=== PATIENT | female | born 1940 | race Caucasian/White ===

== ENCOUNTER 2016-06-23 11:31 | Emergency (ER) | payer BC ==
--- NOTE | 2016-06-23 13:28 | Emergency Department Record ---
History of Present Illness - General Chief complaint: Dental Stated complaint: DENTAL PROBLEM/SWO[place]EN GLANDS Time Seen by Provider: 06/23/16 13:27 Source: Patient Mode of Arrival: Ambulatory Limitations: No limitations - History of Present Illness Initial comments: The patient is here due to having some dental pain and noticing a tender swollen lymph node on the R side of her neck. She denies any trouble swallowing , pain with swallowing, fever, voice changes,or trouble breathing. Onset/Timin -: Days(s) Location: Tooth # Severity scale (1-10): 2 Quality: Aching Consistency: Constant Improves with: None Worsens with: None Associated Symptoms: Toothache - Related Data Home Medications Medication Instructions Recorded Confirmed Last Taken Carvedilol 25 mg PO BID 12/04/13 06/23/16 03/30/16 Levothyroxine Sodium [Synthroid] 125 mcg PO DAILY 12/04/13 06/23/16 03/30/16 Oxybutynin Chloride [Ditropan] 5 mg PO BID PRN 07/04/14 06/23/16 03/30/16 Aspirin [Aspirin EC] 325 mg PO DAILY 11/07/15 06/23/16 03/30/16 Cholecalciferol (Vitamin D3) 1,000 unit PO DAILY 11/07/15 06/23/16 03/30/16 [Vitamin D3] Cranberry Conc/Ascorbic Acid 1 each PO DAILY 11/07/15 06/23/16 03/30/16 [Cranberry Concentrate Softgel] Cyanocobalamin (Vitamin B-12) 1,200 mcg PO DAILY 11/07/15 06/23/16 03/30/16 [Vitamin B-12] Loperamide HCl [Anti-Diarrhea] 2 mg PO ASDIR 11/07/15 06/23/16 03/30/16 Multivits,Ca,Minerals/Iron/FA 1 each PO DAILY 11/07/15 06/23/16 03/30/16 [Women's Daily Formula Caplet] Niacin 250 mg PO DAILY 11/07/15 06/23/16 03/30/16 Pantoprazole Sodium [Protonix] 20 mg PO DAILY 11/07/15 06/23/16 03/30/16 Pyridoxine HCl [Vitamin B-6] 100 mg PO DAILY 11/07/15 06/23/16 03/30/16 Previous Rx's Medication Instructions Recorded Acetaminophen [Tylenol 500Mg Tab] 500 mg PO Q6H PRN #0 tablet 11/10/15 Allopurinol [Zyloprim] 100 mg PO DAILY #30 tablet 11/10/15 Amoxicillin/Potassium Clav 1 tab PO BID #14 tab 06/23/16 [Augmentin 875-125 Tablet] Cefdinir [Omnicef] 300 mg PO BID #14 cap 06/23/16 Cefdinir [Omnicef] 300 mg PO BID #14 cap 06/23/16 Allergies Allergy/AdvReac Type Severity Reaction Status Date / Time morphine Allergy Severe ALTERED Verified 03/30/16 13:32 MENTAL STATUS gabapentin Allergy HYPERSENSIT Verified 06/23/16 13:19 IVITY clindamycin HCl AdvReac Intermediate NAUSEA AND Verified 03/30/16 13:32 [From CLEOCIN] VOMITING cyclobenzaprine HCl AdvReac Intermediate DIZZINESS Verified 03/30/16 13:32 [From FLEXERIL] Travel Screening - Travel/Exposure Within Last 30 Days Have you traveled within the last 30 days?: No Review of Systems Constitutional: Denies: Chills, Fever Eyes: Denies: Eye discharge ENT: Denies: Congestion Respiratory: Denies: Cough, Dyspnea Past Medical History - SOCIAL HISTORY Smoking Status: Former smoker Alcohol Use: None Drug Use: None - RESPIRATORY Hx Respiratory Disorders: No - CARDIOVASCULAR Hx Cardio Disorders: Yes Hx Abnormal EKG: Yes (Regularly irregular) Hx Cardiac Cath: Yes Hx Hypertension: Yes - NEURO Hx Neuro Disorders: Yes Hx Neuropathy: Yes - GI Hx GI Disorders: Yes Hx Abdominal Pain: (Gallstones) Hx Nausea/Vomiting: Yes Hx Obstructive Bowel: Yes ("waited through 3 episodes since i was here last time ") Comment:: Diarrhea from the bowel surgery. 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 negative: Tonsillar erythema, Tonsillar exudate - Neck Neck exam: Full ROM, Lymphadenopathy (There is a 3x3 cm very tender swollen R anterior neck lymph node. There is no warmth or overlying erythema.). negative : Normal inspection - Respiratory Respiratory exam: Normal lung sounds bilaterally. negative: Respiratory distress - Cardiovascular Cardiovascular Exam: Regular rate, Normal rhythm, Normal heart sounds - GI/Abdominal GI/Abdominal exam: Soft, Normal bowel sounds. negative: Tenderness Course Vital Signs 06/23/16 13:14 Temperature 97.8 F Pulse Rate 65 Respiratory 18 Rate Blood Pressure 188/77 Pulse Ox 99 - Reevaluation(s) Reevaluation #1: I explained to the patient we will be treating her for cervical adenitis and she is to see her PCP next week for recheck. 06/23/16 13:57 Reevaluation #2: I did cancel all 3 scripts that were sent to the pharmacy. I then did call in Cefdinir 300 mg daily for 10 days to the pharmacy. 06/23/16 15:35 Disposition Disposition: Discharge Clinical Impression: Acute cervical adenitis Disposition: Home, Self-Care Condition: (1) Good Instructions: Adenitis (ED) Additional Instructions: Please take the Augmentin and use Tylenol for pain. Please use warm compresses to the R neck area. Please return to the ER for any problems or worsening pain, swelling, or any fever. Prescriptions: Amoxicillin/Potassium Clav [Augmentin 875-125 Tablet] 1 tab PO BID #14 tab Cefdinir [Omnicef] 300 mg PO BID #14 cap Cefdinir [Omnicef] 300 mg PO BID #14 cap Forms: Patient Portal Access Time of Disposition: 13:59
== END 2016-06-23 14:07 | disposition home or self-care (01) ==
LOC: ER 11:31
DX: L04.0 Acute lymphadenitis of face, head and neck (principal)
CPT/HCPCS: 99282

== ENCOUNTER 2017-03-21 11:08 | Inpatient (IN) | payer BC ==
[2017-03-21] MEDS ORDERED: ONDANSETRON HCL IV 4 MG/2 ML VIAL IV ONE (11:15)
[2017-03-21] MEDS ORDERED: 0.9 % SODIUM CHLORIDE 1,000 ML BAG IV ONE (11:15)
[2017-03-21] MEDS ORDERED: ACETAMINOPHEN 1,000 MG/100 ML BTL IVPB ONE (11:29)
--- NOTE | 2017-03-21 11:29 | Emergency Department Record ---
History of Present Illness - General Chief complaint: Nausea, Vomiting, Diarrhea Stated complaint: NAUSEA/VOMITING Time Seen by Provider: 03/21/17 11:15 Source: Patient Mode of Arrival: Ambulatory Limitations: No limitations - History of Present Illness Initial comments: 76 yo female presents with nausea, vomiting and diarrhea. The symptoms started on Saturday after eating mussels. With in two hours she developed nausea and vomiting. The vomiting continued until Saturday. She has not vomited since Saturday but she has had a persistently upset stomach. She has chronic diarrhea that is increased in frequency. Today she developed a right sided abdominal pain around 9am. This pain has persisted for the last 2 hours. She has had multiple abdominal surgeries in the past in cluding large partial bowel resection, gall bladder. She has a history of breast, colon, and gastric cancer. PCP John Paul Scherer MD complaint: Diarrhea, Nausea, Vomiting Onset/Timin -: Days(s) Description of Vomiting: Other Associated Abdominal Pain: Yes Location: RLQ Radiation: None Severity: Moderate Quality: Aching Consistency: Constant Improves with: None Worsens with: Eating Associated Symptoms: Loss of appetite, Nausea/vomiting, Weakness - Related Data Home Medications Medication Instructions Recorded Confirmed Last Taken Palbociclib [Ibrance] 75 mg PO DAILY 03/21/17 03/21/17 03/21/17 Previous Rx's Medication Instructions Recorded Acetaminophen [Tylenol 500Mg Tab] 500 mg PO Q6H PRN #0 tablet 11/10/15 Allopurinol [Zyloprim] 100 mg PO DAILY #30 tablet 11/10/15 Allergies Allergy/AdvReac Type Severity Reaction Status Date / Time morphine Allergy Severe ALTERED Verified 03/30/16 13:32 MENTAL STATUS gabapentin Allergy HYPERSENSIT Verified 06/23/16 13:19 IVITY clindamycin HCl AdvReac Intermediate NAUSEA AND Verified 03/30/16 13:32 [From CLEOCIN] VOMITING cyclobenzaprine HCl AdvReac Intermediate DIZZINESS Verified 03/30/16 13:32 [From FLEXERIL] Travel Screening - Travel/Exposure Within Last 30 Days Have you traveled within the last 30 days?: No - Travel/Exposure Within Last Year Have you traveled outside the [place] in the last year?: No - Additonal Travel Details Have you been exposed to anyone with a communicable illness?: No - Travel Symptoms Symptom Screening: None Review of Systems Constitutional: Reports: Malaise, Weakness. Denies: Chills, Fever Eyes: Denies: Eye discharge, Eye pain ENT: Denies: Congestion, Throat pain Respiratory: Denies: Cough, Dyspnea, Hemoptysis, Wheezes Cardiovascular: Denies: Chest pain, Syncope Endocrine: Reports: Fatigue Gastrointestinal: Reports: As per HPI, Abdominal pain, Diarrhea, Nausea, Vomiting Genitourinary: Denies: Dysuria, Urgency Musculoskeletal: Denies: Arthralgia, Back pain, Joint swelling, Myalgia Skin: Denies: Bruising, Change in color, Rash Neurological: Denies: Headache, Numbness, Weakness Psychiatric: Denies: Anxiety Hematological/Lymphatic: Denies: Anemia, Blood Clots, Easy bleeding, Easy bruising, Swollen glands Past Medical History - SOCIAL HISTORY Smoking Status: Former smoker Alcohol Use: Rare Drug Use: None - RESPIRATORY Hx Respiratory Disorders: No - CARDIOVASCULAR Hx Cardio Disorders: Yes Hx Abnormal EKG: Yes (Regularly irregular) Hx Cardiac Cath: Yes Hx Hypertension: Yes - NEURO Hx Neuro Disorders: Yes Hx Neuropathy: Yes - GI Hx GI Disorders: Yes Hx Abdominal Pain: (Gallstones) Hx Nausea/Vomiting: Yes Hx Obstructive Bowel: Yes ("waited through 3 episodes since i was here last time ") Comment:: Diarrhea from the bowel surgery. 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 negative: Conjunctival injection, Periorbital swelling - ENT ENT exam: Normal exam, Mucous membranes moist Ear exam: Normal external inspection Nasal Exam: Normal inspection Mouth exam: Normal external inspection - Neck Neck exam: Normal inspection, Full ROM - Respiratory Respiratory exam: Normal lung sounds bilaterally. negative: Respiratory distress, Rhonchi, Stridor, Wheezes - Cardiovascular Cardiovascular Exam: Regular rate, Normal rhythm, Normal heart sounds - GI/Abdominal GI/Abdominal exam: Soft, Tenderness (Tender right sided abdomen at the level of umbilicus). negative: Guarding, Rebound - Rectal Rectal exam: Deferred - exam: Deferred - Extremities Extremities exam: Normal inspection, Full ROM, Normal capillary refill. negative: Tenderness - Back Back exam: Reports: Normal inspection, Full ROM. Denies: Muscle spasm, Rash noted, Tenderness - Neurological Neurological exam: Alert, Normal gait, Oriented X3, Reflexes normal - Psychiatric Psychiatric exam: Normal affect, Normal mood - Skin Skin exam: Dry, Intact, Normal color, Warm Course Vital Signs 03/21/17 11:09 Temperature 98.1 F Pulse Rate 54 L Respiratory 18 Rate Blood Pressure 119/88 Pulse Ox 98 - Reevaluation(s) Reevaluation #1: 03/21/17 11:36 EMR reviewed from prior admission in 201503/21/17 12:11 The labs were reviewed On the CBC she has a chronic anemia The CMP results demonstrated a K of 3.3, a HCO3 of 12 with AG of 22, her BUN is 45 with a CR of 3.7 (baseline CR is 1.8 - 2.6) with a GFR of 13 (baseline of 20- 29) 03/21/17 13:49 CT reivewed. Right renal collecting system is suspicious for infection. No stones. No obstruction. The US is consistent with UTI Stool studies are negative to this point 03/21/17 14:09 I Discussed the case with Dr Rosado. He will admit for IVF, recheck renal function, IV antibiotics for UTI. Medical Decision Making - Lab Data Result diagrams: 03/21/17 11:15 03/21/17 11:15 Disposition Disposition: Admit Clinical Impression: Dehydration, Acute renal insufficiency, Urinary tract infection Diarrhea Qualifiers: Diarrhea type: unspecified type Qualified Code(s): R19.7 - Diarrhea, unspecified Disposition: Still a Patient at [facility] Decision to Admit: Admit from ER Decision to Admit Date: 03/21/17 Decision to Admit Time: 14:07 Condition: (1) Good Time of Disposition: 14:08 Quality - Quality Measures Quality Measures: N/A - Blood Pressure Screening Does Patient Have Any of the Following: Active Dx of HTN Blood Pressure Classification: Pre-Hypertensive BP Reading Systolic Measurement: 130 Diastolic Measurement: 51 Screening for High Blood Pressure: Patient Exclusion, Hx of HTN [[id number]] Pre-Hypertensive Follow-up Interventions: Referral to alternative/primary care provider.
[2017-03-21 11:32] LABS: BASO % 0.8 % (0-6); GRAN % 71.4 % (47-80); HEMATOCRIT 30.9 % (35.0-47.0); HEMOGLOBIN 10.1 gm/dl (11.6-16.0); LYMPH % 23.7 % (16-45); MEAN CELL VOLUME 98.1 fl (81-97); MEAN CORPUSCULAR HGB CONC 32.7 g/dl (32-36); MEAN PLATELET VOLUME 9.9 fl (7.4-10.4); MONO % 3.1 % (0-9); PLATELET COUNT 199 K/uL (130-400); RED BLOOD COUNT 3.15 M/uL (3.80-5.40); RED CELL DISTRIBUTION WIDTH 16.5 % (11.5-14.5); WHITE BLOOD COUNT W/O DIFF 3.9 K/uL (4.2-12.2)
[2017-03-21 12:01] LABS: ALB/GLOB RATIO 0.9 (1.1-1.8); ALBUMIN 3.9 g/dL (4.0-5.0); BILIRUBIN,TOTAL 0.3 mg/dL (0.2-1.0); CREATININE 3.7 mg/dL (0.5-0.9); TOTAL PROTEIN 8.3 g/dL (6.6-8.7)
[2017-03-21] MEDS ORDERED: 0.9 % SODIUM CHLORIDE 1000ML 1,000 ML IV ONE (12:13)
[2017-03-21] MEDS: POTASSIUM CHL 20MEQ IN 1L NS 20 MEQ/1,000 ML BAG IV ONE ×2 (12:50→14:17)
[2017-03-21 13:08] LABS: URINE APPEARANCE CLOUDY; URINE BILIRUBIN NEGATIVE (NEGATIVE); URINE BLOOD SMALL (NEGATIVE); URINE COLOR YELLOW; URINE GLUCOSE (UA) NEGATIVE (NEGATIVE); URINE KETONE NEGATIVE (NEGATIVE); URINE LEUKOCYTE ESTERASE LARGE (NEGATIVE); URINE NITRITE NEGATIVE (NEGATIVE); URINE UROBILINOGEN 0.2 E.U./dL (0.20 - 1.00)
[2017-03-21 13:25] LABS: URINE WBC >50 (0-2/hpf)
[2017-03-21 13:26] LABS: URINE BACTERIA 4+; URINE MUCUS MODERATE
[2017-03-21 13:41] LABS: CRYPTOSPORIDIUM PARVUM ANTIGEN NOT DETECTED (NOT DETECT); GIARDIA LAMBLIA ANTIGEN NOT DETECTED (NOT DETECT); ROTOVIRUS NOT DETECTED (NOT DETECT)
[2017-03-21] MEDS ORDERED: CEFTRIAXONE SODIUM 1 GM in 0.9 % SODIUM CHLORIDE 100ML 100 ML IVPB ONE (13:49)
[2017-03-21 14:21] LABS: MOLECULAR C DIFF TOXIN SCREEN NOT DETECTED (NOT DETECT)
[2017-03-21] MEDS ORDERED: HYDROMORPHONE HCL 1MG/ML **SYRINGE IVP ONE ×2 (14:33→17:04)
[2017-03-21] MEDS ORDERED: POTASSIUM CHLORIDE/D5-0.9%NACL 20 MEQ/1,000 ML BAG IV ONE (15:06)
[2017-03-21] MEDS ORDERED: ONDANSETRON HCL IV 4 MG/2 ML VIAL IVP PRN (15:06)
[2017-03-21] MEDS ORDERED: PNEUM 13-VAL/PF 0.5 ML IM ONE (15:21)
[2017-03-21] MEDS: LOPERAMIDE 2 MG CAPSULE PO PRN ×2 (16:42→21:04)
[2017-03-21] MEDS: HYDROCORTISONE 1% CREAM 28.35 GM TUBE TOP SCH ×2 (16:42→21:08)
[2017-03-21] MEDS: LOPERAMIDE 2 MG CAPSULE PO SCH ×3 (16:49→21:19)
[2017-03-21] MEDS ORDERED: HYDROMORPHONE HCL 1MG/ML **SYRINGE IVP PRN (17:34)
[2017-03-22] MEDS: PANTOPRAZOLE SODIUM 40 MG TABLET PO SCH (06:04)
[2017-03-22] MEDS: LEVOTHYROXINE SODIUM 125 MCG TABLET PO SCH (06:04)
[2017-03-22 08:44] LABS: CREATININE 3.4 mg/dL (0.5-0.9)
[2017-03-22] MEDS ORDERED: POTASSIUM CHL 20MEQ IN 1L NS 20 MEQ/1,000 ML BAG IV ONE (09:36)
--- NOTE | 2017-03-22 10:11 | CT SCAN REPORT ---
EXAM: CT OF THE ABDOMEN AND PELVIS WITHOUT CONTRAST HISTORY: RIGHT LOWER QUADRANT PAIN. TECHNIQUE: Sequential axial images were obtained from the diaphragms through the ischiorectal fossa without intravenous or oral contrast administration. Sagittal and coronal reformatted images were performed. FINDINGS: The visualized lung bases appear normal. The heart and pericardium appear normal. The nonopacified liver appears normal. The pancreas and spleen appear normal. The adrenal glands appear normal. No CT findings suggestive of obstructive uropathy. There is mild hyperdensity of the right renal collecting system. This may represent a superimposed infection. There is postop surgical change in the abdomen. There are small mesenteric lymph nodes. No definitive obstruction is appreciated. There is a small amount of free fluid. There is atheromatous change of the abdominal vasculature. IMPRESSION: MILD HYPERDENSITY OF THE RIGHT RENAL COLLECTING SYSTEM. A SUPERIMPOSED INFECTION CANNOT BE ENTIRELY EXCLUDED. SMALL AMOUNT OF FREE FLUID IN THE PELVIS. EXTENSIVE POSTOP SURGICAL CHANGE IN THE ABDOMEN. SMALL MESENTERIC LYMPH NODES. NO DEFINITIVE OBSTRUCTION. THE GALLBLADDER HAS BEEN SURGICALLY REMOVED. JOB NUMBER: [id number] [facility]
[2017-03-22] MEDS: ASPIRIN 325 MG TAB ENTERIC-COATED PO SCH (10:24)
[2017-03-22] MEDS: LOPERAMIDE 2 MG CAPSULE PO SCH ×4 (10:25→21:38)
[2017-03-22] MEDS: PALBOCICLIB 75 MG PO SCH (10:27)
[2017-03-22] MEDS: HYDROCORTISONE 1% CREAM 28.35 GM TUBE TOP SCH (10:30)
[2017-03-22] MEDS ORDERED: POTASSIUM CHLORIDE 20 MEQ TABLET PO ONE (14:01)
[2017-03-22] MEDS ORDERED: CEFTRIAXONE SODIUM 1 GM in 0.9 % SODIUM CHLORIDE 100ML 100 ML IVPB SCH ×3 (14:15→22:00)
[2017-03-22] MEDS ORDERED: HYDROCODONE/APAP 5/325MG TABLET PO PRN (14:34)
[2017-03-22] MEDS ORDERED: POTASSIUM CHL 20MEQ IN 1L NS 20 MEQ/1,000 ML BAG IV SCH (20:00)
[2017-03-22] MEDS ORDERED: ACETAMINOPHEN 500 MG TABLET PO PRN (21:19)
[2017-03-22] MEDS: CEFTRIAXONE SODIUM 1 GM in 0.9 % SODIUM CHLORIDE 100ML 100 ML IVPB SCH (21:38)
[2017-03-23] MEDS: HYDROCORTISONE 1% CREAM 28.35 GM TUBE TOP SCH ×3 (00:28→22:37)
[2017-03-23] MEDS ORDERED: POTASSIUM CHL 20MEQ IN 1L NS 20 MEQ/1,000 ML BAG IV PRN (01:16)
[2017-03-23] MEDS: LEVOTHYROXINE SODIUM 125 MCG TABLET PO SCH (06:38)
[2017-03-23] MEDS: PANTOPRAZOLE SODIUM 40 MG TABLET PO SCH (06:38)
[2017-03-23 07:19] LABS: CREATININE 3.6 mg/dL (0.5-0.9)
[2017-03-23] MEDS: ASPIRIN 325 MG TAB ENTERIC-COATED PO SCH (09:24)
[2017-03-23] MEDS: LOPERAMIDE 2 MG CAPSULE PO SCH ×3 (09:25→21:53)
[2017-03-23] MEDS: PALBOCICLIB 75 MG PO SCH (09:26)
[2017-03-23] MEDS: CEFTRIAXONE SODIUM 1 GM in 0.9 % SODIUM CHLORIDE 100ML 100 ML IVPB SCH ×2 (09:26→21:51)
[2017-03-23 09:31] LABS: ALBUMIN 2.9 g/dL (4.0-5.0); ALKALINE PHOSPHATASE 147 U/L (35-104); ALT/SGPT 7 U/L (<33); AST/SGOT 15 U/L (10.0-35.0); BILIRUBIN,DIRECT 0.2 mg/dL (0-0.3); BILIRUBIN,TOTAL < 0.20 mg/dL (0.2-1.0); TOTAL PROTEIN 6.2 g/dL (6.6-8.7)
--- NOTE | 2017-03-23 13:56 | Physician Progress Note ---
Subjective - Date Date of Physician Progress Note: 03/23/17 - Subjective Subjective Comment: 03/23/17- Patient is doing well today. Sitting up in bed with family at bedside. She says overall she is feeling much better than when she came in to the ED. She feels like her diarrhea is starting to slow down and has not been as frequent as it had when she came in. She denies nausea, vomiting or abdominal pain. She has been up and ambulating to the bathroom without issue. She denies any muscle cramps/spasms, chest pain, lower extremity swelling or confusion. She says she feels a little more fatigued than usual but otherwise, feels like she is on the mend. Objective - Vital Signs Vital Signs: Vital Signs - Last 24 Hrs Temp Pulse Resp BP Pulse Ox 03/23/17 09:00 70 18 03/23/17 07:00 97.9 F 70 18 130/62 93 L 03/22/17 21:00 18 03/22/17 20:28 97.8 F 76 18 134/53 95 03/22/17 15:00 97.7 F 75 18 123/47 95 - General General Appearance: Alert, Oriented x3, Cooperative, No acute distress Limitations: No limitations - Head Head exam: Atraumatic, Normocephalic, Normal inspection - Eye Eye exam: Normal appearance. negative: Conjunctival injection, Periorbital swelling - ENT ENT exam: Normal exam, Mucous membranes moist Ear exam: Normal external inspection Nasal Exam: Normal inspection Mouth exam: Normal external inspection - Neck Neck exam: Normal inspection, Full ROM - Respiratory Respiratory exam: Normal lung sounds bilaterally. negative: Respiratory distress, Rhonchi, Stridor, Wheezes - Cardiovascular Cardiovascular Exam: Regular rate, Normal rhythm, Normal heart sounds - GI/Abdominal GI/Abdominal exam: Soft, Normal bowel sounds. negative: Guarding, Rebound, Tenderness - Rectal Rectal exam: Deferred - exam: Deferred - Extremities Extremities exam: Normal inspection, Full ROM, Normal capillary refill. negative: Tenderness - Back Back exam: Reports: Normal inspection, Full ROM. Denies: Muscle spasm, Rash noted, Tenderness - Neurological Neurological exam: Alert, Normal gait, Oriented X3, Reflexes normal - Psychiatric Psychiatric exam: Normal affect, Normal mood - Skin Skin exam: Dry, Intact, Normal color, Warm Assessment and Plan - Assessment and Plan (1) [id number] kidney injury Current Visit: No Status: Acute Qualifiers: Acute renal failure type: unspecified Chronic kidney disease stage: stage 4 (severe) Qualified Code(s): N17.9 - Acute kidney failure, unspecified; N18.4 - Chronic kidney disease, stage 4 (severe); N18.4 - Chronic kidney disease , stage 4 (severe); N18.4 - Chronic kidney disease, stage 4 (severe); N18.4 - Chronic kidney disease, stage 4 (severe) Base Code: N17.9 - ACUTE KIDNEY FAILURE, UNSPECIFIED; N18.9 - CHRONIC KIDNEY DISEASE, UNSPECIFIED Comment: 03/23/17- Stable. most likely cause is volume depletion from severe diarrhea. significant electrolyte abnormalities. -BUN 43 and Cr of 3.6 eGFR of 13 unchanged from yesterday. Baseline eGFR is 20 -sodium 143 and potassium improved from 3.0 to 3.8 with IV replacement -Anion gap is down from 20 to 17, however chloride 117 and bicarb of 9. Lactic acid was wnl. arterial pH was not obtained -ionized calcium is low at 0.89 but phosphorus is wnl at 3.2. Patient is not symptomatic of hypocalcemia. -will transition to NS at 100cc/hr from current fluids to avoid hyperkalemia. clinically doing well without signs of fluid overload or acidemia. AG is trending downward. hopefully, bicarb will begin to trend upwards now that diarrhea has improved. Will repeat labs q12H (2) Urinary tract infection Current Visit: Yes Status: Acute Qualifiers: Urinary tract infection type: acute pyelonephritis Qualified Code(s): N10 - Acute pyelonephritis Base Code: N39.0 - URINARY TRACT INFECTION, SITE NOT SPECIFIED Comment: - CT abdomen showed possible infection of the right kidney with UA c/w infection. -continue rocephin 1gm IV q12H (3) Diarrhea Current Visit: Yes Status: Acute Qualifiers: Diarrhea type: unspecified type Qualified Code(s): R19.7 - Diarrhea, unspecified Base Code: R19.7 - DIARRHEA, UNSPECIFIED Comment: 03/23/17- Improving. stool studies negative. acute on chronic diarrhea due to partial colectomy. -continue immodium 2mg po tid (4) DNR (do not resuscitate) Current Visit: No Status: Acute Base Code: Z66 - DO NOT RESUSCITATE Comment: 03/23/17- patient is DNR Results - Labs Result Diagrams: 03/21/17 11:15 03/23/17 05:30 Labs Last 24 Hours: Laboratory Results - last 24 hr 03/22/17 03/23/17 03/23/17 16:20 05:30 06:00 Sodium 143 Potassium 3.8 Chloride 117 H Carbon Dioxide 9.0 L Anion Gap 17.0 H BUN 43 H Creatinine 3.6 H Estimated GFR 13 Random Glucose 109 Calcium 5.3 L* Ionized Calcium 0.89 L Phosphorus Total Bilirubin < 0.20 L Direct Bilirubin 0.2 AST 15 ALT 7 Alkaline Phosphatase 147 H Total Protein 6.2 L Albumin 2.9 L 03/23/17 06:00 Sodium Potassium Chloride Carbon Dioxide Anion Gap BUN Creatinine Estimated GFR Random Glucose Calcium Ionized Calcium Phosphorus 3.2 Total Bilirubin Direct Bilirubin AST ALT Alkaline Phosphatase Total Protein Albumin DVT/PE Assessment - Risk for VTE Risk for VTE: Yes Risk Level: High Risk Assessment Date: 03/23/17 Risk Assessment Time: 14:12 VTE Orders Placed or Will Be Placed: No VTE Reason for No Prophylaxis: Contraindicated - Active Medicaitons Current Medications: Current Medications Acetaminophen (Tylenol 500mg Tab) 1,000 mg PO Q6H PRN PRN Reason: pain Last Admin: 03/22/17 21:38 Dose: 1,000 mg Hydrocodone Bitart/Acetaminophen ([place] 5mg/325mg) 1 each PO Q6H PRN PRN Reason: Analgesia Aspirin (Ecotrin (Ec)) 325 mg PO DAILY [facility] Last Admin: 03/23/17 09:24 Dose: 325 mg Hydrocortisone (Hydrocortisone) 1 gm TOP BID [facility] Last Admin: 03/23/17 09:25 Dose: 1 gm Hydromorphone HCl (Dilaudid) 1 mg IVP Q4H PRN PRN Reason: Abdominal Pain Last Admin: 03/21/17 21:03 Dose: 1 mg Ceftriaxone Sodium 1 gm/ (Sodium Chloride) 100 mls @ 100 mls/hr IVPB Q12HR YANI Stop: 03/27/17 22:01 Last Infusion: 03/23/17 10:47 Dose: Infused Potassium Chloride/Sodium Chloride ( Potassium Chl 20meq/) 20 meq in 1,000 mls @ 100 mls/hr IV Q10H PRN PRN Reason: LARGE VOLUME IV Last Admin: 03/23/17 01:30 Dose: 100 mls/hr Levothyroxine Sodium (Synthroid) 125 mcg PO DAILYTHY [facility] Last Admin: 03/23/17 06:38 Dose: 125 mcg Loperamide HCl (Immodium) 2 mg PO TID [facility] Last Admin: 03/23/17 09:25 Dose: 2 mg Loperamide HCl (Immodium) 2 mg PO DAILY PRN PRN Reason: DIARRHEA Last Admin: 03/21/17 21:04 Dose: 2 mg Non-Formulary Medication (Palbociclib [Ibrance]) 75 mg PO DAILY [facility] Last Admin: 03/23/17 09:26 Dose: 75 mg Ondansetron HCl (Zofran) 4 mg IVP Q4H PRN PRN Reason: NAUSEA Pantoprazole Sodium (Protonix) 40 mg PO DAILYAC [facility] Last Admin: 03/23/17 06:38 Dose: 40 mg AMI Plan - Labs Result Diagrams: 03/21/17 11:15 03/23/17 05:30
[2017-03-23] MEDS: CALCIUM CARBONATE 500 MG TAB.CHEW PO SCH ×2 (15:03→22:36)
[2017-03-23] MEDS: MAGNESIUM OXIDE 400 MG TABLET PO SCH ×2 (15:03→21:53)
[2017-03-23] MEDS: 0.9 % SODIUM CHLORIDE 1000ML 1,000 ML IV PRN (15:05)
[2017-03-23] MEDS ORDERED: MAGNESIUM SULFATE 16 MEQ in 0.9 % SODIUM CHLORIDE 100ML 100 ML IV ONE (18:45)
[2017-03-23 22:12] LABS: ALB/GLOB RATIO 0.8 (1.1-1.8); ALBUMIN 2.7 g/dL (4.0-5.0); BILIRUBIN,TOTAL 0.2 mg/dL (0.2-1.0); CREATININE 3.4 mg/dL (0.5-0.9); TOTAL PROTEIN 6.2 g/dL (6.6-8.7)
[2017-03-24] MEDS: 0.9 % SODIUM CHLORIDE 1000ML 1,000 ML IV PRN (03:36)
[2017-03-24] MEDS: PANTOPRAZOLE SODIUM 40 MG TABLET PO SCH (06:14)
[2017-03-24] MEDS: LEVOTHYROXINE SODIUM 125 MCG TABLET PO SCH (06:14)
[2017-03-24 07:11] LABS: CREATININE 3.3 mg/dL (0.5-0.9)
--- NOTE | 2017-03-24 08:25 | Discharge Note ---
VTE H&P Assessment - Risk for VTE Risk for VTE: Yes Risk Level: High Risk Assessment Date: 03/23/17 Risk Assessment Time: 14:12 VTE Orders Placed or Will Be Placed: No VTE Reason for No Prophylaxis: Contraindicated Discharge Medications - Discharge Medications Prescriptions: Calcitriol 0.25 mcg PO DAILY #30 capsule Cephalexin [Keflex] 250 mg PO QID #20 Magnesium Oxide [Mag Ox] 400 mg PO BID #60 tab Potassium Chloride [Klor-Con] 20 meq PO DAILY #30 Home Medications: Ambulatory Orders Levothyroxine Sodium [Synthroid] 125 mcg PO DAILY 12/04/13 [Last Taken 03/21/17] Aspirin [Aspirin EC] 325 mg PO DAILY 11/07/15 [Last Taken 03/30/16] Pantoprazole Sodium [Protonix] 20 mg PO DAILY 11/07/15 [Last Taken 03/21/17] Acetaminophen [Tylenol 500Mg Tab] 500 mg PO Q6H PRN #0 tablet 11/10/15 [Last Taken 03/30/16] Allopurinol [Zyloprim] 100 mg PO DAILY #30 tablet 11/10/15 [Last Taken 03/21/17] Palbociclib [Ibrance] 75 mg PO DAILY 03/21/17 [Last Taken 03/21/17] Calcitriol 0.25 mcg PO DAILY #30 capsule 03/24/17 [Last Taken Unknown] Cephalexin [Keflex] 250 mg PO QID #20 03/24/17 [Last Taken Unknown] Loperamide HCl [Anti-Diarrhea] 2 mg PO ASDIR #0 03/24/17 [Last Taken 03/21/17] Magnesium Oxide [Mag Ox] 400 mg PO BID #60 tab 03/24/17 [Last Taken Unknown] Potassium Chloride [Klor-Con] 20 meq PO DAILY #30 03/24/17 [Last Taken Unknown] Discharge Note - Date Date of Discharge Note: 03/24/17 Condition: (1) Good Additional Instructions: follow up with Dr Coker on Mar 27 labs for hemoglobin/hematocrit, Magnisium level, BNP new meds keflex 250 mg four times a day for 5more days KCL 20 meq one a day mag ox 400 mg twice a day calcium/vit D 600mg/vit d 400 units calcitriol 0.25 once a day continue home meds Referrals: Salvador Coker M.D., F.A.C.P. [Primary Care Provider] - Forms: Patient Portal Access
[2017-03-24] MEDS: HYDROCORTISONE 1% CREAM 28.35 GM TUBE TOP SCH (09:22)
[2017-03-24] MEDS: LOPERAMIDE 2 MG CAPSULE PO SCH (09:23)
[2017-03-24] MEDS: PALBOCICLIB 75 MG PO SCH (09:24)
[2017-03-24] MEDS: ASPIRIN 325 MG TAB ENTERIC-COATED PO SCH (09:25)
[2017-03-24] MEDS ORDERED: HEPARIN SODIUM FLUSH 100 UNITS/ML SYR 5ML IV ONE (09:41)
[2017-03-24] MEDS ORDERED: 0.9 % SODIUM CHLORIDE 10ML SYR IVP ONE (09:41)
[2017-03-24] MEDS ORDERED: MAGNESIUM OXIDE 400 MG TABLET PO SCH (10:00)
[2017-03-24] MEDS ORDERED: CEPHALEXIN 250 MG CAPSULE PO SCH (10:00)
[2017-03-24] MEDS ORDERED: POTASSIUM CHLORIDE 20 MEQ TABLET PO SCH (10:00)
--- NOTE | 2017-03-24 13:48 | Discharge Summary ---
DATE OF DISCHARGE: 03/24/2017. DISCHARGE DIAGNOSIS: 1. ACUTE PYELONEPHRITIS. 2. ABDOMINAL PAIN, RESOLVED. 3. URINARY TRACT INFECTION, RESOLVING. URINE CULTURE SHOWED A MIXED ELIZABETH. HOWEVER, THE CT SCAN SHOWED SIGNS OF PYELONEPHRITIS. 4. A HISTORY OF STOMACH CANCER. 5. CHRONIC DIARRHEA, ABOUT THREE TO FOUR STOOLS A DAY. USING IMODIUM THREE TIMES A DAY. 6. HYPOCALCEMIA, BEING PLACED ON OUTPATIENT ORAL POTASSIUM 20 MEQ PER DAY. 7. HYPOMAGNESEMIA, BEING PLACED ON MAGNESIUM OXIDE 400 MG B.I.D. 8. HYPOCALCEMIA, BEING PLACED ON CALCIUM 600 MG WITH 400 IU OF VITAMIN D TWICE A DAY. ALSO CALCITRIOL IS BEING STARTED 0.25 MG ONCE A DAY. 9. CHRONIC RENAL FAILURE. 10. HYPOALBUMINEMIA. ATTENDING PHYSICIAN: Randy Rosado D.O. REASON FOR HOSPITALIZATION: Abdominal pain, diarrhea, and vomiting. HISTORY OF PRESENT ILLNESS: This 76-year-old female presented to the emergency department with abdominal pain which started approximately two days prior to admission. She has a history of stomach cancer. She was dehydrated when she came into the emergency department. She was evaluated by Dr. Bae and was admitted to the hospital for abdominal pain, dehydration, acute on chronic renal failure, and electrolyte abnormalities. SIGNIFICANT FINDINGS FROM EXAMINATION: CT of the abdomen and pelvis without contrast showed mild hyperdensity of the right renal collecting system. Superimposed infection cannot be entirely excluded. A small amount of free fluid in the pelvis. Extensive postoperative surgical changes in the abdomen. Small mesenteric lymph nodes. No definitive obstruction. The gallbladder has been surgically removed. LABORATORY DATA: Initially she came in with a hemoglobin of 10.1. Her potassium was 3.3 and dropped to 3.0 on discharge. Her magnesium was 0.4 mg. She was given 2.0 gm of intravenous magnesium, and it came up to 1.2. On discharge it was 1.0. She is being placed on oral magnesium. Her calcium was 5.3. It was 5.5 on discharge. Ionized calcium is 0.89 which is slightly low. Normal is 1.1 to 1.3. She is being placed on calcium with Vitamin D twice a day plus calcitriol 0.25 mg q. daily. Phosphorus is in the normal range. Albumin is low at 2.7. Her urine showed WBC is greater than 50. RBC is 7 to 10. Bacteria 4+. Epithelial cells 7 to 10. The urine culture showed multiple bacteria and morphology present. They could not identify one specific organism to do sensitivities on. THERAPY PROVIDED: The patient was started on intravenous Rocephin, and that was switched over to oral Keflex 250 mg four times a day for five more days. She was given intravenous fluids cautiously because of her renal status and to correct her dehydration. Her creatinine came down to 3.3. The high was 3.7. The last time it was checked, maybe three months ago, it was 2.6. She has seen the kidney doctors out at [facility] through Dr. Hoffmann. HOSPITAL COURSE: The abdominal pain she resolved, and she is feeling better. Dehydration has resolved, and she is stable enough to be discharged and follow up as an outpatient to adjust her electrolytes. CONDITION AT DISCHARGED: Much improved. MEDICATIONS ON DISCHARGE: 1. Keflex 250 mg q.i.d. for five more days. 2. Calcium with Vitamin D 600 mg of calcium/400 IU of Vitamin D b.i.d. which is over the counter. 3. Magnesium Oxide 400 mg b.i.d. 4. Calcitriol 0.25 mg q. daily. 5. Potassium chloride 20 mEq q. daily. HOME MEDICATIONS: Continue her home medications to include the followin. Albuterol 100 mg q. daily. 2. Aspirin 325 mg q. daily. 3. Levothyroxine 125 mcg q. daily. 4. Imodium 2.0 mg t.i.d. and p.r.n. 5. Ibrance 75 mg q. daily. 6. Protonix 20 mg q. daily. DISCHARGE INSTRUCTIONS: Follow up with Dr. Coker on Saturday. Repeat labs on Saturday morning because she is having labs drawn for oncology at that time too. These will include a hemoglobin, hematocrit, magnesium level, and a basic metabolic profile. Activity as tolerated. Diet as tolerated. Randy Rosado D.O. Date & Time JOB NUMBER: [id number] MTDD
--- NOTE | 2017-03-25 13:07 | History and Physical Report ---
DATE OF ADMISSION: 03/21/2017 CHIEF COMPLAINT: Abdominal pain. HISTORY OF CHIEF COMPLAINT: This 76-year-old female presents stating vomiting, diarrhea and abdominal pain for the last 2 days. The vomiting was mostly 2 days ago but she is still having severe abdominal pain. She has a history of breast cancer with mets to the stomach. She has had also previous histories of pyelonephritis. The patient was evaluated in the emergency department by Dr. Bae, admitted to the hospital for dehydration, urinary tract infection, right pyelonephritis, renal insufficiency [id number] and further care. The patient was started on IV Rocephin 1 g q.24 hours and was switched to q.12 hours. PAST MEDICAL HISTORY: Breast cancer, seeing Dr. Hoffmann, colon cancer, hypertension. She has mets to her stomach. PAST SURGICAL HISTORY: She had gallbladder removed in 07/2015, a bowel resection at [facility] October of 2015, bilateral kidney nephro scopes done, right breast lumpectomy, right breast cancer, bilateral carpal tunnel, hysterectomy. CURRENT MEDICATIONS: Medications on admission: 1. Protonix 20 mg daily. 2. Ibrance 75 mg daily. This is an oncological medication for cancer. 3. Imodium 2 mg p.r.n. 4. Levothyroxine 125 mcg daily. 5. Aspirin 325 daily. 6. Allopurinol 100 mg daily. 7. Tylenol p.r.n. 8. The office chart says she is on omeprazole and Coreg. Will check on that. ALLERGIES: MORPHINE, GABAPENTIN, CLINDAMYCIN and CYCLOBENZAPRINE FAMILY PSYCHOSOCIAL HISTORY: Unremarkable for her present problems. Her father and mother, brothers, sisters and grandparents had heart disease and her children have hypertension. REVIEW OF SYSTEMS: HEENT: No upper respiratory infection symptoms, cough, cold or congestion. Cardiovascular: No chest pain, palpitations or arrhythmias. Respiratory: Denies being short of breath of having any breathing problems. Gastrointestinal: See chief complaint. She has abdominal pain, nausea, vomiting and diarrhea. Genitourinary: See chief complaint. She denies any burning on urination or pain on urination. Musculoskeletal: No abnormalities in arms or legs. Neurologic: No CVA, paralysis or paresthesias. Endocrine: She has hypothyroidism. Denies diabetes. Integument: No rash, ulcerative changes or yellow skin. PHYSICAL EXAMINATION: VITAL SIGNS: Height 5'4", weight 135 pounds. Temperature 97.7. Pulse 90. Blood pressure 119/71. Respiratory rate 20. Pulse ox 96% on room air. HEENT: Pupils equal, round and react to light and accommodation. Extraocular muscles intact. Throat is clear. Nose is clear. Tympanic membranes are campos. NECK: Supple. No jugular venous distention. No hepatojugular reflux. No carotid bruits. Thyroid is smooth. CARDIOVASCULAR: Regular rate and rhythm without murmurs, clicks, rubs or gallops. RESPIRATORY: Breath sounds equal bilaterally, and clear. ABDOMEN: Pain in all 4 quadrants; more on the right side is what she has had initially, but at my examination, she had pain in all 4 quadrants. EXTREMITIES: No pitting edema. No cyanosis. No clubbing. Full range of motion. Peripheral pulses are good. BREASTS: Deferred. GYNECOLOGY: Deferred. RECTAL: Deferred. GENITALIA: Normal female genitalia. NEUROLOGIC: Cranial nerves II-XII intact. No gross deficits. Sensation normal. Strength normal. Deep tendon reflexes equal bilaterally. Babinski is negative. MENTAL STATUS: Alert and oriented x3. IMPRESSION: 1. Abdominal pain. 2. Acute pyelonephritis. 3. Urinary tract infection. 4. Stomach cancer. 5. Nausea, vomiting and diarrhea. 6. Emdns-va-wepkzty renal failure. 7. Hypokalemia. 8. Hypocalcemia. 9. Low albumin. PLAN: Cautious IV hydration. IV Rocephin q.12 hours. Pain control with Dilaudid. Further evaluation. INPATIENT CERTIFICATION Admit to inpatient care based on my medical assessment. After consideration of the patient risk factors, age, comorbidity and patient presenting symptoms in [place], I expect that this patient will remain in the hospital greater than or equal to 2 midnights and the services needed warrant inpatient care because of abdominal pain, acute pyelonephritis, dehydration and breast cancer with metastasis to the stomach. ESTIMATED LENGTH OF STAY: Three days. The patient may reasonably expect to be discharged or transferred to a hospital within 96 hours after admission to [facility]. Services needed: IV antibiotics, pain control IV. I certify that my determination is in accordance with my understanding of Medicare requirements for reasonable and necessary inpatient services. CRISTHIAN
== END 2017-03-24 11:50 | disposition home or self-care (01) | DRG 690 ==
LOC: ER 11:08 → MEDSURG 14:45
PROVIDERS: ADMIT Emergency Medicine; ATTEND Emergency Medicine
DX: N10 Acute pyelonephritis (principal); C78.89 Secondary malignant neoplasm of other digestive organs; C80.1 Malignant (primary) neoplasm, unspecified; I10 Essential (primary) hypertension; E03.9 Hypothyroidism, unspecified; N17.9 Acute kidney failure, unspecified; N18.9 Chronic kidney disease, unspecified; E87.6 Hypokalemia; E83.51 Hypocalcemia; E88.09 Other disorders of plasma-protein metabolism, not elsewhere classified; R11.2 Nausea with vomiting, unspecified; R19.7 Diarrhea, unspecified; K52.9 Noninfective gastroenteritis and colitis, unspecified; E83.42 Hypomagnesemia; N39.0 Urinary tract infection, site not specified
CPT/HCPCS: 99285; 83690; 87329; 85025; 80053; 81001; 89055; 87425; 82272; 87493; 74176; J2405; J1170; 80048; 80076; 82330; 83605; 83735; 84100; 96365; 96366; 99223; 99233; J7030

== ENCOUNTER 2017-07-19 14:42 | Emergency (ER) | payer BC ==
--- NOTE | 2017-07-19 15:31 | Emergency Department Record ---
History of Present Illness - General Chief Complaint: Syncope Stated Complaint: NEAR SYNCOPY Time Seen by Provider: 07/19/17 15:24 Source: Patient, RN notes reviewed Mode of Arrival: EMS - History of Present Illness Initial Comments: near syncope and she denies LOC and she had symptons of feeling light headed for 45 minutes and she could not find a chair in the grocery store. EMS called and she was brought to the ED. PMH metastatic breast cancer and she got a chemo shot this am at [facility]. No chest pain , not dyspneic Onset/Timin -: Minutes(s) Description of Event: Incontinence -: Minutes(s) - [place] Coma Scale Eye Response: (4) Open spontaneously Motor Response: (6) Obeys commands Verbal Response: (5) Oriented [place] Total: 15 - Related Data Home Medications Medication Instructions Recorded Confirmed Last Taken B-Complex with Vitamin C [Vitamin 1 each PO DAILY 07/19/17 07/19/17 1 Day Ago B-Complex with Vit C] ~07/18/17 Cholecalciferol (Vitamin D3) 2,000 unit PO DAILY 07/19/17 07/19/17 1 Day Ago [Vitamin D3] ~07/18/17 Colestipol HCl 1 gm PO DAILY 07/19/17 07/19/17 1 Day Ago ~07/18/17 Cranberry 400 mg PO DAILY 07/19/17 07/19/17 1 Day Ago ~07/18/17 Multivitamin [Multi-Vitamin Daily] 1 each PO DAILY 07/19/17 07/19/17 1 Day Ago ~07/18/17 Previous Rx's Medication Instructions Recorded Acetaminophen [Tylenol 500Mg Tab] 500 mg PO Q6H PRN #0 tablet 11/10/15 Allopurinol [Zyloprim] 100 mg PO DAILY #30 tablet 11/10/15 Calcitriol 0.25 mcg PO DAILY #30 capsule 03/24/17 Loperamide HCl [Anti-Diarrhea] 2 mg PO ASDIR #0 03/24/17 Allergies Allergy/AdvReac Type Severity Reaction Status Date / Time morphine Allergy Severe ALTERED Verified 07/19/17 14:53 MENTAL STATUS gabapentin Allergy HYPERSENSIT Verified 07/19/17 14:53 IVITY clindamycin HCl AdvReac Intermediate NAUSEA AND Verified 07/19/17 14:53 [From CLEOCIN] VOMITING cyclobenzaprine HCl AdvReac Intermediate DIZZINESS Verified 07/19/17 14:53 [From FLEXERIL] Travel Screening - Travel/Exposure Within Last 30 Days Have you traveled within the last 30 days?: No - Travel/Exposure Within Last Year Have you traveled outside the [place] in the last year?: No - Additonal Travel Details Have you been exposed to anyone with a communicable illness?: No - Travel Symptoms Symptom Screening: None Review of Systems Reviewed: No additional complaints except as noted below Constitutional: Reports: As per HPI. Denies: Chills, Fever, Malaise, Night sweats, Weakness, Weight change Eyes: Reports: As per HPI. Denies: Eye discharge, Eye pain, Photophobia, Vision change ENT: Reports: As per HPI. Denies: Congestion, Dental pain, Ear pain, Epistaxis , Hearing loss, Throat pain Respiratory: Reports: As per HPI. Denies: Cough, Dyspnea, Hemoptysis, Stridor, Wheezes Cardiovascular: Reports: As per HPI. Denies: Arrhythmia, Chest pain, Dyspnea on exertion, Edema, Murmurs, Orthopnea, Palpitations, Paroxysmal nocturnal dyspnea, Rheumatic Fever, Syncope Endocrine: Reports: As per HPI. Denies: Fatigue, Heat or cold intolerance, Polydipsia, Polyuria Gastrointestinal: Reports: As per HPI, Diarrhea (she has loose stool every day because of chemo therapy). Denies: Abdominal pain, Constipation, Hematemesis, Hematochezia, Melena, Nausea, Vomiting Genitourinary: Reports: As per HPI. Denies: Abnormal menses, Discharge, Dyspareunia, Dysuria, Frequency, Hematuria, Incontinence, Retention, Urgency Musculoskeletal: Reports: As per HPI. Denies: Arthralgia, Back pain, Gout, Joint swelling, Myalgia, Neck pain Skin: Reports: As per HPI. Denies: Bruising, Change in color, Change in hair/ nails, Lesions, Pruritus, Rash Neurological: Reports: As per HPI. Denies: Abnormal gait, Confusion, Headache, Numbness, Paresthesias, Seizure, Tingling, Tremors, Vertigo, Weakness Psychiatric: Reports: As per HPI. Denies: Anxiety, Auditory hallucinations, Depression, Homicidal thoughts, Suicidal thoughts, Visual hallucinations Hematological/Lymphatic: Reports: As per HPI. Denies: Anemia, Blood Clots, Easy bleeding, Easy bruising, Swollen glands Past Medical History - SOCIAL HISTORY Smoking Status: Former smoker Alcohol Use: None Drug Use: None - RESPIRATORY Hx Respiratory Disorders: No - CARDIOVASCULAR Hx Cardio Disorders: Yes Hx Abnormal EKG: Yes (Regularly irregular) Hx Cardiac Cath: Yes Hx Hypertension: Yes - NEURO Hx Neuro Disorders: Yes Hx Neuropathy: Yes - GI Hx GI Disorders: Yes Hx Abdominal Pain: (Gallstones) Hx Nausea/Vomiting: Yes Hx Obstructive Bowel: Yes ("waited through 3 episodes since i was here last time ") Comment:: Diarrhea from the bowel surgery. - Hx Genitourinary Disorders: Yes Hx Renal Disease: Yes (chronic stage 3) Hx UTI: Yes - ENDOCRINE Hx Endocrine Disorders: Yes Hx Diabetes: Yes (diet controlled) Hx Thyroid Disease: Yes (low) - MUSCULOSKELETAL Hx Musculoskeletal Disorders: Yes Hx Back Injury: Yes - PSYCH Hx Psych Problems: No - HEMATOLOGY/ONCOLOGY Hx Hematology/Oncology Disorders: Yes Hx Cancer: Yes (large intestine, breast 2-3 yrs ago) Hx Chemotherapy: Yes (07/19/2017) Hx Radiation Therapy: Yes Hx Blood Transfusions: Yes Family Medical History Any Significant Family History?: Yes Hx Heart Disease: Father, Mother, Brother/Sister, Grandparents Hx HTN: Children Physical Exam - General General Appearance: Alert, Oriented x3, Cooperative, Mild distress - Head Head exam: Normal inspection - Eye Eye exam: Normal appearance, PERRL Pupils: Normal accommodation - ENT ENT exam: Normal exam, Mucous membranes moist, Normal external ear exam, Normal orophraynx, TM's normal bilaterally Ear exam: Normal external inspection. negative: External canal tenderness Nasal Exam: Normal inspection. negative: Discharge, Sinus tenderness Mouth exam: Normal external inspection, Tongue normal Teeth exam: Normal inspection. negative: Dental caries Throat exam: Normal inspection. negative: Tonsillar erythema, Tonsillar exudate - Neck Neck exam: Normal inspection, Full ROM. negative: Tenderness - Respiratory Respiratory exam: Normal lung sounds bilaterally. negative: Respiratory distress - Cardiovascular Cardiovascular Exam: Regular rate, Normal rhythm, Normal heart sounds - GI/Abdominal GI/Abdominal exam: Soft, Normal bowel sounds. negative: Tenderness - Rectal Rectal exam: Deferred - exam: Deferred - Extremities Extremities exam: Normal inspection, Full ROM, Normal capillary refill. negative: Tenderness - Back Back exam: Reports: Normal inspection, Full ROM. Denies: Muscle spasm, Rash noted, Tenderness - Neurological Neurological exam: Alert, Normal gait, Oriented X3, Reflexes normal - Psychiatric Psychiatric exam: Normal affect, Normal mood - Skin Skin exam: Dry, Intact, Normal color, Warm Course Vital Signs 07/19/17 14:43 Temperature 97.8 F Pulse Rate 57 L Respiratory 18 Rate Blood Pressure 142/52 Pulse Ox 99 - Reevaluation(s) Reevaluation #1: patient feeling better 07/19/17 15:30 Medical Decision Making - Lab Data Result diagrams: 07/19/17 15:15 07/19/17 15:15 Disposition Clinical Impression: Dehydration, Near syncope Diarrhea Qualifiers: Diarrhea type: unspecified type Qualified Code(s): R19.7 - Diarrhea, unspecified Chronic renal insufficiency Qualifiers: Chronic kidney disease stage: stage 3 (moderate) Qualified Code(s): N18.3 - Chronic kidney disease, stage 3 (moderate) Breast cancer Qualifiers: Breast location: unspecified site of breast Estrogen receptor status: unspecified Patient sex: female Laterality: unspecified laterality Qualified Code(s): C50.919 - Malignant neoplasm of unspecified site of unspecified female breast Anemia Qualifiers: Anemia type: other cause Other causes of anemia: antineoplastic chemotherapy Qualified Code(s): D64.81 - Anemia due to antineoplastic chemotherapy; T45.1X5A - Adverse effect of antineoplastic and immunosuppressive drugs, initial encounter; T45.1X5A - Adverse effect of antineoplastic and immunosuppressive drugs, initial encounter Disposition: Home, Self-Care Condition: (1) Good Instructions: Dehydration (ED) Additional Instructions: follow up with Dr. Coker next week or [facility] Forms: Patient Portal Access Time of Disposition: 16:31 Quality - Quality Measures Quality Measures: N/A - Blood Pressure Screening Does Patient Have Any of the Following: No Blood Pressure Classification: Hypertensive Reading Systolic Measurement: 142 Diastolic Measurement: 52 Screening for High Blood Pressure: < Pre-Hypertensive BP, F/U Documented > [ [id number]] Pre-Hypertensive Follow-up Interventions: Referral to alternative/primary care provider.
[2017-07-19] MEDS ORDERED: 0.9 % SODIUM CHLORIDE 1,000 ML BAG IV ONE (15:34)
[2017-07-19 15:45] LABS: GRAN % 57.7 % (47-80); HEMATOCRIT 25.8 % (35.0-47.0); LYMPH % 30.3 % (16-45); MEAN CELL VOLUME 112.2 fl (81-97); MEAN PLATELET VOLUME 10.3 fl (7.4-10.4); PLATELET COUNT 152 K/uL (130-400); RED CELL DISTRIBUTION WIDTH 14.4 % (11.5-14.5); WHITE BLOOD COUNT W/O DIFF 2.3 K/uL (4.2-12.2)
[2017-07-19 15:46] LABS: MEAN CORPUSCULAR HEMOGLOBIN 34.7 pg (27-33)
[2017-07-19 16:06] LABS: ALBUMIN 3.6 g/dL (4.0-5.0); ALKALINE PHOSPHATASE 120 U/L (35-104); ALT/SGPT 11 U/L (<33); AST/SGOT 23 U/L (10.0-35.0); BLOOD UREA NITROGEN 32 mg/dL (8-23)
[2017-07-19 16:07] LABS: CREATININE 2.2 mg/dL (0.5-0.9); EST GLOMERULAR FILTRATION RATE 23 mL/min; GLUCOSE,RANDOM 122 mg/dL (74-109); LIPASE 17 U/L (13-60)
[2017-07-19 16:14] LABS: BILIRUBIN,DIRECT < 0.2 mg/dL (0-0.3)
== END 2017-07-19 17:06 | disposition home or self-care (01) ==
LOC: ER 14:42
DX: R55 Syncope and collapse (principal); E86.0 Dehydration; R19.7 Diarrhea, unspecified; D61.1 Drug-induced aplastic anemia; C18.9 Malignant neoplasm of colon, unspecified; D63.0 Anemia in neoplastic disease; C79.81 Secondary malignant neoplasm of breast; I12.9 Hypertensive chronic kidney disease with stage 1 through stage 4 chronic kidney disease, or unspecified chronic kidney disease; E11.22 Type 2 diabetes mellitus with diabetic chronic kidney disease; N18.3 Chronic kidney disease, stage 3 (moderate); Z87.891 Personal history of nicotine dependence
CPT/HCPCS: 80048; 80076; 82272; 82553; 83690; 85025; 93005; 93010; 96360; 99284; J7030

== ENCOUNTER 2017-09-21 16:25 | Emergency (ER) | payer BC ==
[2017-09-21] MEDS ORDERED: SODIUM CHLORIDE 0.9% 500 ML IV ONE (16:46)
[2017-09-21] MEDS ORDERED: ONDANSETRON HCL IV 4 MG/2 ML VIAL IV ONE (16:46)
--- NOTE | 2017-09-21 16:50 | Emergency Department Record ---
History of Present Illness - General Chief Complaint: Back Pain/Injury Stated Complaint: LOWER BACK P IN Time Seen by Provider: 09/21/17 16:42 Source: Patient Mode of Arrival: Ambulatory Limitations: No limitations - History of Present Illness Initial Comments: The patient is here due to a 2 day hx of L flank pain. The pain is sharp and aching and located in the LUQ of the abdomen and it radiates to the L back. She denies any spine pain or fall or rib injury. The patient may have had hematuria 4 days ago but that did resolve. She also denies any nausea, vomiting, fever, or chills but she has had a slight increase in her chronic diarrhea. Additionally the patient has been on Amox. for 4 days due to a cough and cold. MD Complaint: Other Onset/Timin -: Days(s) Radiation: None Severity: Moderate Severity scale (1-10): 9 Context: Other - Related Data Home Medications Medication Instructions Recorded Confirmed Last Taken Amoxicillin [Amoxicillin] 500 mg PO BID 09/21/17 09/21/17 Unknown Ipratropium Br. 0.02% Neb 2.5 ml INH BID 09/21/17 09/21/17 Unknown [Atrovent 0.02% Neb] Previous Rx's Medication Instructions Recorded Acetaminophen [Tylenol 500Mg Tab] 500 mg PO Q6H PRN #0 tablet 11/10/15 Allopurinol [Zyloprim] 100 mg PO DAILY #30 tablet 11/10/15 Calcitriol 0.25 mcg PO DAILY #30 capsule 03/24/17 Loperamide HCl [Anti-Diarrhea] 2 mg PO ASDIR #0 03/24/17 Acetaminop W/ Codeine 300/30Mg 1 tab PO Q6H #15 tab 09/21/17 [Tylenol with Codeine #3] Ciprofloxacin HCl [Cipro] 1 tab PO DAILY #9 tab 09/21/17 Ciprofloxacin HCl [Cipro] 500 mg PO DAILY #5 tablet 09/22/17 Allergies Allergy/AdvReac Type Severity Reaction Status Date / Time morphine Allergy Severe ALTERED Verified 09/21/17 16:42 MENTAL STATUS gabapentin Allergy HYPERSENSIT Verified 09/21/17 16:42 IVITY clindamycin HCl AdvReac Intermediate NAUSEA AND Verified 09/21/17 16:42 [From CLEOCIN] VOMITING cyclobenzaprine HCl AdvReac Intermediate DIZZINESS Verified 09/21/17 16:42 [From FLEXERIL] Travel Screening - Travel/Exposure Within Last 30 Days Have you traveled within the last 30 days?: Yes Location Detail:: [place] - Travel/Exposure Within Last Year Have you traveled outside the [place] in the last year?: No - Additonal Travel Details Have you been exposed to anyone with a communicable illness?: No - Travel Symptoms Symptom Screening: None Review of Systems Constitutional: Denies: Chills, Fever Past Medical History - SOCIAL HISTORY Smoking Status: Former smoker Alcohol Use: Rare Drug Use: None - RESPIRATORY Hx Respiratory Disorders: No - CARDIOVASCULAR Hx Cardio Disorders: Yes Hx Abnormal EKG: Yes (Regularly irregular) Hx Cardiac Cath: Yes Hx Hypertension: Yes - NEURO Hx Neuro Disorders: Yes Hx Neuropathy: Yes - GI Hx GI Disorders: Yes Hx Abdominal Pain: (Gallstones) Hx Nausea/Vomiting: Yes Hx Obstructive Bowel: Yes ("waited through 3 episodes since i was here last time ") Comment:: Diarrhea from the bowel surgery. - Hx Genitourinary Disorders: Yes Hx Renal Disease: Yes (chronic stage 3) Hx UTI: Yes - ENDOCRINE Hx Endocrine Disorders: Yes Hx Diabetes: Yes (diet controlled) Hx Thyroid Disease: Yes (low) - MUSCULOSKELETAL Hx Musculoskeletal Disorders: Yes Hx Back Injury: Yes - PSYCH Hx Psych Problems: No - HEMATOLOGY/ONCOLOGY Hx Hematology/Oncology Disorders: Yes Hx Cancer: Yes (large intestine, breast 2-3 yrs ago) Hx Chemotherapy: Yes (07/19/2017) Hx Radiation Therapy: Yes Hx Blood Transfusions: Yes Family Medical History Any Significant Family History?: No Hx Heart Disease: Father, Mother, Brother/Sister, Grandparents Hx HTN: Children Physical Exam - General General Appearance: Alert, Oriented x3, Cooperative, No acute distress - Head Head exam: Atraumatic, Normocephalic, Normal inspection - Eye Eye exam: Normal appearance, PERRL - Neck Neck exam: Normal inspection, Full ROM. negative: Tenderness - Respiratory Respiratory exam: Normal lung sounds bilaterally. negative: Respiratory distress - Cardiovascular Cardiovascular Exam: Regular rate, Normal rhythm, Normal heart sounds - GI/Abdominal GI/Abdominal exam: Soft, Normal bowel sounds. negative: Rebound, Rigid, Tenderness - Extremities Extremities exam: Normal inspection, Full ROM, Normal capillary refill. negative: Tenderness - Neurological Neurological exam: Alert. negative: Motor sensory deficit - Skin Skin exam: negative: Rash Course Vital Signs 09/21/17 16:30 Temperature 97.3 F L Pulse Rate 85 Respiratory 18 Rate Pulse Ox 95 - Reevaluation(s) Reevaluation #1: The patient is doing better. She states the AP is improving and she denies any nausea or any trouble breathing. I did discuss the lab results and the UTI with the patient and also the need for F/U. 09/21/17 18:32 Reevaluation #2: The patient is doing well at this time. She denies any new symptoms, pain, fever or vomiting. She is drinking fluids well and urinating normally. I did discuss the lab issues with the patient. Our chemistry analyzer has malfunctioned and the lab personel are not sure when it will be up. They think they can get my results in an hour but the patient does not want to wait. She has been waiting already for an hour and a half and would like to go home. I did discuss the risks of leaving without knowing the exact lab results but the patient accepts the risks and would like to leave. I will call the patient in the morning with the results. 09/21/17 19:23 Reevaluation #3: I did consult with the patient by phone at 9am. I did discuss the lab results and the need to have the potassium rechecked in 1-2 days. I also did increase her Cipro to 500 mg daily and did call in 5 pills to the pharmacy. The patient understands the plan and will increase her Cipro at home and have her lab work rechecked. 09/22/17 08:58 Medical Decision Making - Data Complexity MDM Data: X-Ray Ordered and/or Reviewed - Lab Data Result diagrams: 09/21/17 17:20 09/21/17 17:20 - Radiology Data Radiology results: Report reviewed (Abd CT: Neg for any acute intra-abdominal process. RLL infiltrate.) Disposition Disposition: Discharge Clinical Impression: Acute renal insufficiency Urinary tract infection Qualifiers: Urinary tract infection type: site unspecified Hematuria presence: with hematuria Qualified Code(s): N39.0 - Urinary tract infection, site not specified Disposition: Home, Self-Care Condition: (2) Stable Instructions: Urinary Tract Infection in Women (ED) Additional Instructions: Please continue your AMoxicillin and add the Cipro starting tomorrow. Take the Tylenol # 3 for pain as directed. Please see your family doctor for recheck in 3 days and return to the ER for any worsening symptoms, pain, fever, or vomiting. Prescriptions: Acetaminop W/ Codeine 300/30Mg [Tylenol with Codeine #3] 1 tab PO Q6H #15 tab Ciprofloxacin HCl [Cipro] 500 mg PO DAILY #5 tablet Ciprofloxacin HCl [Cipro] 1 tab PO DAILY #9 tab Forms: Patient Portal Access Time of Disposition: 19:28 Quality - Quality Measures Quality Measures: N/A - Blood Pressure Screening View Details: Yes Does Patient Have Any of the Following: Active Dx of HTN Blood Pressure Classification: Hypertensive Reading Systolic Measurement: 168 Diastolic Measurement: 69 Screening for High Blood Pressure: Patient Exclusion, Hx of HTN [G9744]
[2017-09-21 17:32] LABS: HEMATOCRIT 31.3 % (35.0-47.0); HEMOGLOBIN 10.2 gm/dl (11.6-16.0); MEAN CELL VOLUME 110.6 fl (81-97); MEAN CORPUSCULAR HGB CONC 32.6 g/dl (32-36); MEAN PLATELET VOLUME 10.1 fl (7.4-10.4); PLATELET COUNT 120 K/uL (130-400); RED BLOOD COUNT 2.83 M/uL (3.80-5.40); WHITE BLOOD COUNT W/O DIFF 2.6 K/uL (4.2-12.2)
[2017-09-21 17:40] LABS: HYPOCHROMIA 1+; PLATELET ESTIMATE NORMAL (NORMAL)
[2017-09-21 17:44] LABS: URINE APPEARANCE CLOUDY; URINE BILIRUBIN NEGATIVE (NEGATIVE); URINE BLOOD MODERATE (NEGATIVE); URINE COLOR YELLOW; URINE GLUCOSE (UA) NEGATIVE (NEGATIVE); URINE KETONE NEGATIVE (NEGATIVE); URINE LEUKOCYTE ESTERASE LARGE (NEGATIVE); URINE NITRITE POSITIVE (NEGATIVE); URINE UROBILINOGEN 0.2 E.U./dL (0.20 - 1.00)
[2017-09-21] MEDS ORDERED: ACETAMINOPHEN W/ CODEINE 300MG/30MG TABLET PO ONE ×2 (17:46→19:22)
[2017-09-21 17:48] LABS: URINE BACTERIA 4+; URINE EPITHELIAL CELLS 0 - 2 (FEW); URINE RBC 36 - 50 (NONE SEEN); URINE WBC >50 (0-2/hpf)
[2017-09-21] MEDS ORDERED: CIPROFLOXACIN HCL 250 MG TABLET PO ONE (18:01)
[2017-09-21 20:47] LABS: BILIRUBIN,TOTAL 0.3 mg/dL (0.2-1.0); CREATININE 2.5 mg/dL (0.5-0.9)
[2017-09-21 20:53] LABS: ALB/GLOB RATIO 0.9 (1.1-1.8); ALBUMIN 3.8 g/dL (4.0-5.0)
--- NOTE | 2017-09-22 21:20 | CT SCAN REPORT ---
EXAM: CT SCAN ABDOMEN/PELVIS WO CONTRAST HISTORY: LEFT FLANK PAIN AND HEMATURIA. FREQUENCY. TECHNIQUE: Standard CT imaging of the abdomen and pelvis was performed without contrast. Additional coronal and sagittal reformatted images were also performed. COMPARISON: 03/21/2017. FINDINGS: There are mild infiltrates as well as a small focal area of consolidation within the right lower lobe. The appearance suggests mild right lower lobe pneumonitis. Additional areas of atelectasis or scarring are present at both lung bases. A calcified granuloma is present at the left lung base. The liver appears normal. The gallbladder is surgically absent. The biliary tree, pancreas, spleen, and right adrenal gland are normal. There is mild prominence of the left adrenal gland, which is unchanged. The kidneys and ureters are normal in appearance. There is no obstructing calculus or hydronephrosis. There is no abnormal perinephric fat stranding. Atherosclerotic changes are present within the aorta with no aneurysm. There is no retroperitoneal lymphadenopathy. A few scattered nonenlarged lymph nodes are present and appear stable. Postsurgical changes are present within the bowel loops and appear stable. The colon is fluid-filled, which appears similar to the prior study. There are scattered diverticula within the sigmoid colon with no evidence for acute diverticulitis. The sigmoid colon is nondistended. There is no pneumoperitoneum or ascites. The uterus is surgically absent. The urinary bladder appears normal. There are extensive degenerative changes within the spine. The bones appear osteopenic with a mottled appearance throughout. No focal osteoblastic or osteolytic process is identified. There are no acute osseous abnormalities. IMPRESSION: 1. NO ACUTE INTRAABDOMINAL PATHOLOGY. THERE IS NO URINARY TRACT CALCULUS OR OBSTRUCTIVE UROPATHY. 2. MILD SIGMOID DIVERTICULOSIS WITH NO DIVERTICULITIS. 3. POSTSURGICAL CHANGES ABOVE. 4. MILD FOCAL INFILTRATE/CONSOLIDATION WITHIN THE RIGHT LOWER LOBE SUGGESTING MILD ACUTE PNEUMONIA. JOB NUMBER: [id number] MTDD
== END 2017-09-21 19:57 | disposition home or self-care (01) ==
LOC: ER 16:25
DX: N28.9 Disorder of kidney and ureter, unspecified (principal); N39.0 Urinary tract infection, site not specified; R10.12 Left upper quadrant pain; E11.9 Type 2 diabetes mellitus without complications; I10 Essential (primary) hypertension; Z87.891 Personal history of nicotine dependence
CPT/HCPCS: 99284 ×2; 96374; 83690; 80053; 81001; 85027; 74176; J2405

== ENCOUNTER 2017-09-27 10:53 | Inpatient (IN) | payer BC ==
[2017-09-27] MEDS ORDERED: SODIUM CHLORIDE 0.9% 500 ML IV ONE (11:31)
--- NOTE | 2017-09-27 11:31 | Emergency Department Record ---
History of Present Illness - General Chief complaint: Vomiting Stated complaint: VOMITING Time Seen by Provider: 09/27/17 11:11 Source: Patient, Family (daughter) Mode of Arrival: Wheelchair - History of Present Illness Initial comments: The patient has numerous chronic health problems but currently is here because she is vomiting after coughing since yesterday. She also is eating and drinking less, having exertional SOB for the past week. She denies chest pain, abdominal pain, fevers, but does have some chills. This past , 09-19-17, she started on Amoxicillin for respiratory bronchitis/sinusitis. This past 09-21-17, the patient states she was seen here additionally for UTI/kidney infection and pneumonia seen on her CT. She was started on Cipro for this and told to continue the amoxicillin. After starting on the cipro, she states her chronic diarrhea worsened, so she called back and her cipro was discontinued and she was instructed to start macrobid instead, which would be today. PMH includes breast cancer diagnosed 2002, treated with lumpectomy, chemo, and XRT with remission for 10 yers. 2013 recurrence in her bowels and then her gallbladder, which was removed 2 years ago. Currently she sttes the cancer is n her stomach, but today she has no symptoms of stomach problems. She also has CRD, DVT left leg in the past, No PE. Onset/Timin -: Days(s) Associated Abdominal Pain: No Associated Symptoms: Cough, Loss of appetite, Nausea/vomiting - Related Data Home Medications Medication Instructions Recorded Confirmed Last Taken Nitrofurantoin [place] [Macrobid] 100 mg PO BID 09/27/17 09/27/17 Unknown Previous Rx's Medication Instructions Recorded Acetaminophen [Tylenol 500Mg Tab] 500 mg PO Q6H PRN #0 tablet 11/10/15 Allopurinol [Zyloprim] 100 mg PO DAILY #30 tablet 11/10/15 Calcitriol 0.25 mcg PO DAILY #30 capsule 03/24/17 Loperamide HCl [Anti-Diarrhea] 2 mg PO ASDIR #0 03/24/17 Acetaminop W/ Codeine 300/30Mg 1 tab PO Q6H #15 tab 09/21/17 [Tylenol with Codeine #3] Allergies Allergy/AdvReac Type Severity Reaction Status Date / Time morphine Allergy Severe ALTERED Verified 09/27/17 10:57 MENTAL STATUS gabapentin Allergy HYPERSENSIT Verified 09/27/17 10:57 IVITY clindamycin HCl AdvReac Intermediate NAUSEA AND Verified 09/27/17 10:57 [From CLEOCIN] VOMITING cyclobenzaprine HCl AdvReac Intermediate DIZZINESS Verified 09/27/17 10:57 [From FLEXERIL] Travel Screening - Travel/Exposure Within Last 30 Days Have you traveled within the last 30 days?: No Review of Systems Reviewed: No additional complaints except as noted below Constitutional: Reports: As per HPI. Denies: Chills, Fever, Malaise, Night sweats, Weakness, Weight change Eyes: Reports: As per HPI. Denies: Eye discharge, Eye pain, Photophobia, Vision change ENT: Reports: As per HPI. Denies: Congestion, Dental pain, Ear pain, Epistaxis , Hearing loss, Throat pain Respiratory: Reports: As per HPI. Denies: Cough, Dyspnea, Hemoptysis, Stridor, Wheezes Cardiovascular: Reports: As per HPI. Denies: Arrhythmia, Chest pain, Dyspnea on exertion, Edema, Murmurs, Orthopnea, Palpitations, Paroxysmal nocturnal dyspnea, Rheumatic Fever, Syncope Endocrine: Reports: As per HPI. Denies: Fatigue, Heat or cold intolerance, Polydipsia, Polyuria Gastrointestinal: Reports: As per HPI. Denies: Abdominal pain, Constipation, Diarrhea, Hematemesis, Hematochezia, Melena, Nausea, Vomiting Genitourinary: Reports: As per HPI. Denies: Abnormal menses, Discharge, Dyspareunia, Dysuria, Frequency, Hematuria, Incontinence, Retention, Urgency Musculoskeletal: Reports: As per HPI. Denies: Arthralgia, Back pain, Gout, Joint swelling, Myalgia, Neck pain Skin: Reports: As per HPI. Denies: Bruising, Change in color, Change in hair/ nails, Lesions, Pruritus, Rash Neurological: Reports: As per HPI. Denies: Abnormal gait, Confusion, Headache, Numbness, Paresthesias, Seizure, Tingling, Tremors, Vertigo, Weakness Psychiatric: Reports: As per HPI. Denies: Anxiety, Auditory hallucinations, Depression, Homicidal thoughts, Suicidal thoughts, Visual hallucinations Hematological/Lymphatic: Reports: As per HPI. Denies: Anemia, Blood Clots, Easy bleeding, Easy bruising, Swollen glands Past Medical History - SOCIAL HISTORY Smoking Status: Former smoker Alcohol Use: None Drug Use: None - RESPIRATORY Hx Respiratory Disorders: No - CARDIOVASCULAR Hx Cardio Disorders: Yes Hx Abnormal EKG: Yes (Regularly irregular) Hx Cardiac Cath: Yes Hx Hypertension: Yes - NEURO Hx Neuro Disorders: Yes Hx Neuropathy: Yes - GI Hx GI Disorders: Yes Hx Abdominal Pain: (Gallstones) Hx Nausea/Vomiting: Yes Hx Obstructive Bowel: Yes ("waited through 3 episodes since i was here last time ") Comment:: Diarrhea from the bowel surgery. - Hx Genitourinary Disorders: Yes Hx Renal Disease: Yes (chronic stage 3) Hx UTI: Yes - ENDOCRINE Hx Endocrine Disorders: Yes Hx Diabetes: Yes (diet controlled) Hx Thyroid Disease: Yes (low) - MUSCULOSKELETAL Hx Musculoskeletal Disorders: Yes Hx Back Injury: Yes - PSYCH Hx Psych Problems: No - HEMATOLOGY/ONCOLOGY Hx Hematology/Oncology Disorders: Yes Hx Cancer: Yes (large intestine, breast 2-3 yrs ago) Hx Chemotherapy: Yes (07/19/2017) Hx Radiation Therapy: Yes Hx Blood Transfusions: Yes Family Medical History Any Significant Family History?: Yes Hx Heart Disease: Father, Mother, Brother/Sister, Grandparents Hx HTN: Children Physical Exam - General General Appearance: Alert, Oriented x3, Cooperative, Mild distress (fatigued, elderly) - Head Head exam: Normal inspection - Eye Eye exam: Normal appearance, PERRL Pupils: Normal accommodation - ENT ENT exam: Normal exam, Mucous membranes dry, Normal external ear exam, Normal orophraynx, TM's normal bilaterally Ear exam: Normal external inspection. negative: External canal tenderness Nasal Exam: Normal inspection. negative: Discharge, Sinus tenderness Mouth exam: Normal external inspection, Tongue normal Teeth exam: Normal inspection. negative: Dental caries Throat exam: Normal inspection. negative: Tonsillar erythema, Tonsillar exudate - Neck Neck exam: Normal inspection, Full ROM. negative: Lymphadenopathy, Meningismus , Tenderness - Respiratory Respiratory exam: Normal lung sounds bilaterally, Decreased breath sounds, Prolonged expiratory, Rhonchi, Wheezes. negative: Accessory muscle use, Chest wall tenderness, Respiratory distress - Cardiovascular Cardiovascular Exam: Regular rate, Normal rhythm, Normal heart sounds - GI/Abdominal GI/Abdominal exam: Soft, Normal bowel sounds. negative: Distended, Guarding, Rebound, Rigid, Tenderness - Rectal Rectal exam: Deferred - exam: Deferred - Extremities Extremities exam: Normal inspection, Full ROM, Normal capillary refill. negative: Calf tenderness, Pedal edema, Tenderness - Back Back exam: Reports: Normal inspection, Full ROM. Denies: CVA tenderness (R), CVA tenderness (L), Muscle spasm, Rash noted, Tenderness - Neurological Neurological exam: Alert, Normal gait, Oriented X3, Reflexes normal - Psychiatric Psychiatric exam: Normal affect, Normal mood - Skin Skin exam: Dry, Intact, Normal color, Warm Course Vital Signs 09/27/17 10:58 Temperature 97.4 F L Pulse Rate 94 H Respiratory 20 Rate Blood Pressure 145/78 Pulse Ox 93 L - Reevaluation(s) Reevaluation #1: After one liter NS the patient still feels weak and prefers admission here. She urinated less than 50 cc dark urine after one liter NS. DW Dr. Rosado who accepts patient for admission. 09/27/17 13:58 Medical Decision Making - Management Options MDM Management: Additional Work-up Planned (e.g. ADM/Transfer/OP Study) ( admission) - Data Complexity MDM Data: Labs Ordered and/or Reviewed, X-Ray Ordered and/or Reviewed (CXR Hyperinflation with no acute abnormality per Radiologist) - Lab Data Result diagrams: 09/27/17 11:47 09/27/17 11:47 Disposition Disposition: Admit Clinical Impression: Dehydration, DNR (do not resuscitate), Electrolyte imbalance [id number] kidney injury Qualifiers: Acute renal failure type: unspecified Chronic kidney disease stage: unspecified stage Qualified Code(s): N17.9 - Acute kidney failure, unspecified; N18.9 - Chronic kidney disease, unspecified Disposition: Still a Patient at [facility] Decision to Admit: Admit from ER Decision to Admit Date: 09/27/17 Decision to Admit Time: 14:02 Forms: Patient Portal Access Quality - Quality Measures Quality Measures: N/A - Blood Pressure Screening Does Patient Have Any of the Following: No Blood Pressure Classification: Hypertensive Reading Systolic Measurement: 145 Diastolic Measurement: 78 Screening for High Blood Pressure: < Normal BP, F/U Not Required > [G8783]
[2017-09-27] MEDS ORDERED: IPRATROPIUM/ALBUTEROL (0.5MG/3MG) NEB INH ONE (11:33)
[2017-09-27 11:57] LABS: HEMATOCRIT 32.1 % (35.0-47.0); MEAN CELL VOLUME 107.7 fl (81-97); MEAN CORPUSCULAR HEMOGLOBIN 36.9 pg (27-33); MEAN CORPUSCULAR HGB CONC 34.3 g/dl (32-36); MEAN PLATELET VOLUME 9.4 fl (7.4-10.4); PLATELET COUNT 207 K/uL (130-400); RED BLOOD COUNT 2.98 M/uL (3.80-5.40); WHITE BLOOD COUNT W/O DIFF 4.5 K/uL (4.2-12.2)
[2017-09-27 12:05] LABS: BILIRUBIN,TOTAL 0.3 mg/dL (0.2-1.0); CREATININE 3.6 mg/dL (0.5-0.9); INR 1.1; PROTHROMBIN TIME (PATIENT) 11.8 SECONDS (9.5-12.1); TOTAL PROTEIN 8.7 g/dL (6.6-8.7)
[2017-09-27 12:08] LABS: LACTIC ACID 1.7 mmol/L (0.5-2.2)
[2017-09-27 12:10] LABS: ALBUMIN 4.1 g/dL (4.0-5.0)
[2017-09-27 12:12] LABS: NTpro B-NATRIURETIC PEPTIDE 953.6 pg/mL (<450)
[2017-09-27] MEDS ORDERED: POTASSIUM CHLORIDE 20 MEQ TABLET PO ONE (12:24)
[2017-09-27 12:33] LABS: ALB/GLOB RATIO 0.9 (1.1-1.8)
[2017-09-27] MEDS ORDERED: CEFTRIAXONE SODIUM 1 GM in 0.9 % SODIUM CHLORIDE 100ML 100 ML IVPB ONE (12:54)
[2017-09-27] MEDS ORDERED: 0.9 % SODIUM CHLORIDE 500ML 500 ML IV SCH (14:00)
[2017-09-27 14:08] LABS: URINE APPEARANCE CLEAR; URINE BILIRUBIN NEGATIVE (NEGATIVE); URINE BLOOD SMALL (NEGATIVE); URINE COLOR YELLOW; URINE GLUCOSE (UA) NEGATIVE (NEGATIVE); URINE KETONE NEGATIVE (NEGATIVE); URINE LEUKOCYTE ESTERASE LARGE (NEGATIVE); URINE NITRITE NEGATIVE (NEGATIVE); URINE UROBILINOGEN 0.2 E.U./dL (0.20 - 1.00)
[2017-09-27 14:32] LABS: URINE RBC 0 - 2 (NONE SEEN)
[2017-09-27 14:33] LABS: URINE BACTERIA NONE SEEN; URINE EPITHELIAL CELLS 0 - 2 (FEW)
[2017-09-27] MEDS ORDERED: LOPERAMIDE HCL 2 MG PO SCH (14:53)
[2017-09-27] MEDS ORDERED: 0.9 % SODIUM CHLORIDE 1000ML 1,000 ML IV ONE (14:53)
[2017-09-27] MEDS ORDERED: ACETAMINOPHEN W/ CODEINE 300MG/30MG TABLET PO SCH (14:53)
[2017-09-27] MEDS ORDERED: ACETAMINOPHEN 500 MG TABLET PO PRN (14:53)
[2017-09-27] MEDS ORDERED: 0.9 % SODIUM CHLORIDE 1,000 ML BAG IV ONE (14:53)
[2017-09-27] MEDS: PIPERACILLIN SODIUM IVPB SCH (16:40)
[2017-09-27] MEDS: SODIUM CHLORIDE 0.9% IVPB SCH (16:40)
[2017-09-27] MEDS: TAZOBACTAM IVPB SCH (16:40)
[2017-09-27] MEDS: LOPERAMIDE 2 MG CAPSULE PO SCH ×2 (18:42→22:52)
[2017-09-27] MEDS: IPRATROPIUM BR 0.02% NEB (0.5MG) INH SCH (21:45)
[2017-09-27] MEDS ORDERED: AMOXICILLIN 500 MG PO SCH (22:00)
[2017-09-27] MEDS ORDERED: NITROFURANTOIN MONO 100 MG CAPSULE PO SCH (22:00)
--- NOTE | 2017-09-27 22:49 | History & Physical ---
History of Present Illness - Date of Service Date of Service for History & Physical: 09/28/17 - History of Present Illness Admitting Diagnosis: Dehydration; acute on chronic renal insufficiency; UTI; DNR status; electrolyte imbalance History of Present Illness: 77yo female with CC of weakness, vomiting. She has history of metastatic breast cancer and follows with Dr. valentino. HTN, CKD. She has had frequent UTI's as well. PMH includes breast cancer diagnosed 2002, treated with lumpectomy, chemo, and XRT with remission for 10 years. 2012 recurrence in her bowels and then her gallbladder, which was removed 2 years ago. Currently she states the cancer is in her stomach, but today she has no symptoms of stomach problems. She also has CRD, DVT left leg in the past, No PE. patient presented to the ED Saturday with weakness, vomiting and some coughing. She denies chest pain, abdominal pain, fevers, but does have some chills. , 09-19-17, she started on Amoxicillin for respiratory bronchitis/ sinusitis by her pcp. This past 09-21-17, the patient states she was seen in our ED additionally for UTI/kidney infection and pneumonia seen on her CT. She was started on Cipro for this and told to continue the amoxicillin. After starting on the cipro, she states her chronic diarrhea worsened, so she called back and her cipro was discontinued and she was instructed to start macrobid instead, but never got to start it because she came back to the ED. While in the ED, patient had labs completed. CBC showed hgb of 11 with wBC count of 4.5. Her CMP showed several abnormalities. potassium low at 3.0, bicarb low at 15, AG of 27. BUN and CR elevated above her baseline at 50 and 3.6 respectively. UA showed large amount of LE and blood and CXR was negative for acute process. She had a urine culture from her ED visit a few days prior showing E. Coli resistant to most abx. She was sensitive to zosyn and so this was started and she was admitted for further IV abx and IVF. 09/28/17- Patient states she is feeling better today. she still feels weaker than her baseline but no longer feeling nauseated like she had been. She states she has chronic diarrhea since the bowel resection and that has not changed. She is tolerating clear liquids which she was unable to do yesterday. She says her urine color has improved with the fluids. She denies any abdominal pain, fever, chills. She is still having some chest congestion and cough that is not productive. She was diagnosed on CT scan last week with a mild RLL infiltrate and was treated with amox and a few days of cipro. Her repeat CXR showed NAP. pcp: Dr. Coker oncologist: Dr. Valentino Travel Screening - Travel/Exposure Within Last 30 Days Have you traveled within the last 30 days?: Yes Location Detail:: to [place] - Travel/Exposure Within Last Year Have you traveled outside the [place] in the last year?: No - Additonal Travel Details Have you been exposed to anyone with a communicable illness?: No - Travel Symptoms Symptom Screening: None Review of Systems Constitutional: Reports: As per HPI. Denies: Chills, Fever, Malaise, Night sweats, Weakness, Weight change Eyes: Reports: As per HPI. Denies: Eye discharge, Eye pain, Photophobia, Vision change ENT: Reports: As per HPI. Denies: Congestion, Dental pain, Ear pain, Epistaxis , Hearing loss, Throat pain Respiratory: Reports: As per HPI. Denies: Cough, Dyspnea, Hemoptysis, Stridor, Wheezes Cardiovascular: Reports: As per HPI. Denies: Arrhythmia, Chest pain, Dyspnea on exertion, Edema, Murmurs, Orthopnea, Palpitations, Paroxysmal nocturnal dyspnea, Rheumatic Fever, Syncope Endocrine: Reports: As per HPI. Denies: Fatigue, Heat or cold intolerance, Polydipsia, Polyuria Gastrointestinal: Reports: As per HPI, Diarrhea, Nausea, Vomiting. Denies: Abdominal pain, Constipation, Hematemesis, Hematochezia, Melena Genitourinary: Reports: As per HPI. Denies: Abnormal menses, Discharge, Dyspareunia, Dysuria, Frequency, Hematuria, Incontinence, Retention, Urgency Musculoskeletal: Reports: As per HPI. Denies: Arthralgia, Back pain, Gout, Joint swelling, Myalgia, Neck pain Skin: Reports: As per HPI. Denies: Bruising, Change in color, Change in hair/ nails, Lesions, Pruritus, Rash Neurological: Reports: As per HPI. Denies: Abnormal gait, Confusion, Headache, Numbness, Paresthesias, Seizure, Tingling, Tremors, Vertigo, Weakness Psychiatric: Reports: As per HPI. Denies: Anxiety, Auditory hallucinations, Depression, Homicidal thoughts, Suicidal thoughts, Visual hallucinations Hematological/Lymphatic: Reports: As per HPI. Denies: Anemia, Blood Clots, Easy bleeding, Easy bruising, Swollen glands Past Medical History - SOCIAL HISTORY Smoking Status: Former smoker Alcohol Use: Rare Drug Use: None - RESPIRATORY Hx Respiratory Disorders: No - CARDIOVASCULAR Hx Cardio Disorders: Yes Hx Abnormal EKG: Yes (Regularly irregular) Hx Cardiac Cath: Yes Hx Hypertension: Yes - NEURO Hx Neuro Disorders: Yes Hx Neuropathy: Yes - GI Hx GI Disorders: Yes Hx Abdominal Pain: (Gallstones) Hx Nausea/Vomiting: Yes Hx Obstructive Bowel: Yes ("waited through 3 episodes since i was here last time ") Comment:: Diarrhea from the bowel surgery. Hx of instestinal CA. 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) Hx Chemotherapy: Yes (07/19/2017) Hx Radiation Therapy: Yes Hx Blood Transfusions: Yes Family Medical History Any Significant Family History?: Yes Hx Heart Disease: Father, Mother, Brother/Sister, Grandparents Hx HTN: Children H&P Meds/Allergies - Allergies Allergies: Allergies Allergy/AdvReac Type Severity Reaction Status Date / Time morphine Allergy Severe ALTERED Verified 09/27/17 10:57 MENTAL STATUS gabapentin Allergy HYPERSENSIT Verified 09/27/17 10:57 IVITY clindamycin HCl AdvReac Intermediate NAUSEA AND Verified 09/27/17 10:57 [From CLEOCIN] VOMITING cyclobenzaprine HCl AdvReac Intermediate DIZZINESS Verified 09/27/17 10:57 [From FLEXERIL] - Home Medications Home Medications Medication Instructions Recorded Confirmed Last Taken Nitrofurantoin Barber [Macrobid] 100 mg PO BID 09/27/17 09/27/17 Unknown Previous Rx's Medication Instructions Recorded Acetaminophen [Tylenol 500Mg Tab] 500 mg PO Q6H PRN #0 tablet 11/10/15 Allopurinol [Zyloprim] 100 mg PO DAILY #30 tablet 11/10/15 Calcitriol 0.25 mcg PO DAILY #30 capsule 03/24/17 Loperamide HCl [Anti-Diarrhea] 2 mg PO ASDIR #0 03/24/17 Acetaminop W/ Codeine 300/30Mg 1 tab PO Q6H #15 tab 09/21/17 [Tylenol with Codeine #3] - Active Medications Active Medications: Current Medications Acetaminophen (Tylenol 500mg Tab) 500 mg PO Q6H PRN PRN Reason: PAIN/TEMP Allopurinol (Zyloprim) 100 mg PO DAILY [facility] Aspirin (Ecotrin (Ec)) 325 mg PO DAILY [facility] Sodium Chloride () 1,000 mls @ 100 mls/hr IV .Q10H ONE Stop: 09/28/17 00:52 Last Admin: 09/27/17 15:48 Dose: 100 mls/hr Piperacillin Sod/Tazobactam (Sod 2.25 gm/ Sodium Chloride) 50 mls @ 100 mls/hr IVPB Q8H [facility] Last Infusion: 09/27/17 18:40 Dose: Infused Ipratropium [place] (Atrovent 0.02% Neb) 2.5 ml INH BID [facility] Last Admin: 09/27/17 21:45 Dose: 2.5 ml Levothyroxine Sodium (Synthroid) 125 mcg PO DAILYTHY [facility] Loperamide HCl (Immodium) 2 mg PO 0600,0900,1200,1500 [facility] Loperamide HCl (Immodium) 2 mg PO 1800,2100 [facility] Last Admin: 09/27/17 18:42 Dose: 2 mg Multivitamins/Minerals (Centrum) 1 tab PO DAILY [facility] Non-Formulary Medication (Calcitriol [Calcitriol]) 0.25 mcg PO DAILY [facility] Non-Formulary Medication (Colestipol Hcl [Colestipol Hcl]) 1 gm PO DAILY [facility] Non-Formulary Misc (Palbociclib [ Ibrance] 125 Mg) 125 mg PO DAILY [facility] Vitamin D (Vitamin D3) 2,000 unit PO DAILY [facility] Physical Exam - Vital Signs Vital Signs: Vital Signs - Last 24 Hrs Temp Pulse Pulse Resp BP BP Pulse Ox 09/27/17 21:45 65 16 97 09/27/17 21:00 16 09/27/17 15:00 76 18 141/76 09/27/17 13:16 81 20 133/65 95 09/27/17 11:41 84 20 93 L 09/27/17 10:58 97.4 F L 94 H 20 145/78 93 L - General General Appearance: Alert, Oriented x3, Cooperative, No acute distress - Head Head exam: Normal inspection - Eye Eye exam: Normal appearance, PERRL Pupils: Normal accommodation - ENT ENT exam: Normal exam, Mucous membranes dry, Normal external ear exam, Normal orophraynx, TM's normal bilaterally Ear exam: Normal external inspection. negative: External canal tenderness Nasal Exam: Normal inspection. negative: Discharge, Sinus tenderness Mouth exam: Normal external inspection, Tongue normal Teeth exam: Normal inspection. negative: Dental caries Throat exam: Normal inspection. negative: Tonsillar erythema, Tonsillar exudate - Neck Neck exam: Normal inspection, Full ROM. negative: Lymphadenopathy, Meningismus , Tenderness - Respiratory Respiratory exam: Decreased breath sounds, Prolonged expiratory, Rhonchi (few bases). negative: Accessory muscle use, Chest wall tenderness, Respiratory distress - Cardiovascular Cardiovascular Exam: Regular rate, Normal rhythm, Normal heart sounds - GI/Abdominal GI/Abdominal exam: Soft, Normal bowel sounds. negative: Distended, Guarding, Rebound, Rigid, Tenderness - Rectal Rectal exam: Deferred - exam: Deferred - Extremities Extremities exam: Normal inspection, Full ROM, Normal capillary refill. negative: Calf tenderness, Pedal edema, Tenderness - Back Back exam: Reports: Normal inspection, Full ROM. Denies: CVA tenderness (R), CVA tenderness (L), Muscle spasm, Rash noted, Tenderness - Neurological Neurological exam: Alert, Normal gait, Oriented X3, Reflexes normal - Psychiatric Psychiatric exam: Normal affect, Normal mood - Skin Skin exam: Dry, Intact, Normal color, Warm Results - Labs Result Diagrams: 09/28/17 09:51 09/29/17 09:42 Labs Last 24 Hours: Laboratory Results - last 24 hr 09/27/17 09/27/17 09/27/17 11:47 11:47 11:47 WBC 4.5 RBC 2.98 L Hgb 11.0 L Hct 32.1 L MCV 107.7 H MCH 36.9 H MCHC 34.3 RDW 14.0 Plt Count 207 MPV 9.4 Neutrophils % 81.0 H Band Neutrophils % 3.0 Eosinophils % Not Reportable Basophils % Not Reportable Lymphocytes 13.0 L Monocytes 3.0 Basophils 0.0 Eosinophil Count 0.0 PT 11.8 INR 1.1 Sodium 144 Potassium 3.0 L Chloride 102 Carbon Dioxide 15.0 L Anion Gap 27.0 H BUN 50 H Creatinine 3.6 H Estimated GFR 13 Random Glucose 130 H Lactic Acid 1.7 Calcium 9.1 Total Bilirubin 0.30 AST 22 ALT 13 Alkaline Phosphatase 117 H NT-Pro-B Natriuret Pep 953.60 H Total Protein 8.7 Albumin 4.1 Globulin 4.6 Albumin/Globulin Ratio 0.9 L Urine Color Urine Appearance Urine pH Ur Specific [place] Urine Protein Urine Glucose (UA) Urine Ketones Urine Blood Urine Nitrite Urine Bilirubin Urine Urobilinogen Ur Leukocyte Esterase Urine RBC Urine WBC Ur Epithelial Cells Urine Bacteria 09/27/17 13:45 WBC RBC Hgb Hct MCV MCH MCHC RDW Plt Count MPV Neutrophils % Band Neutrophils % Eosinophils % Basophils % Lymphocytes Monocytes Basophils Eosinophil Count PT INR Sodium Potassium Chloride Carbon Dioxide Anion Gap BUN Creatinine Estimated GFR Random Glucose Lactic Acid Calcium Total Bilirubin AST ALT Alkaline Phosphatase NT-Pro-B Natriuret Pep Total Protein Albumin Globulin Albumin/Globulin Ratio Urine Color Yellow Urine Appearance Clear Urine pH 6.0 Ur Specific [place] 1.025 Urine Protein 100 mg/dl H Urine Glucose (UA) Negative Urine Ketones Negative Urine Blood Small H Urine Nitrite Negative Urine Bilirubin Negative Urine Urobilinogen 0.2 Ur Leukocyte Esterase Large H Urine RBC 0 - 2 Urine WBC Too numerous to cnt Ur Epithelial Cells 0 - 2 Urine Bacteria None seen VTE H&P Assessment - Risk for VTE Risk for VTE: Yes Risk Level: High Risk Assessment Date: 09/28/17 Risk Assessment Time: 11:00 VTE Orders Placed or Will Be Placed: No VTE Reason for No Prophylaxis: Contraindicated (very high fall risk ) Plan - Inpatient Certification Inpatient Certification: Admit to inpatient care: Based on my medical assessment, after consideration of patient's risk factors (age, co-morbidities and patient presenting symptoms and acuity), I expect that this patient will remain in the hospital greater than or equal to two midnights and that the services needed warrant inpatient care because: Patient Risk Factors: [age, UTI, breast cancer, weakness, dehydration] Estimated length of stay: [48-72H] The patient may reasonably be expected to be discharged or transferred to a hospital within 96 hours after admission to [facility]. Services needed: [iV abx, IV fluids] Post hospital care (if known): [] I certify that my determination is in accordance with my understanding of Medicare requirements for reasonable and necessary inpatient services. 09/29/17 09:54 - Detailed Diagnosis and Plan (1) UTI (urinary tract infection) Current Visit: No Status: Acute Qualifiers: Urinary tract infection type: acute cystitis Hematuria presence: with hematuria Qualified Code(s): N30.01 - Acute cystitis with hematuria Base Code: N39.0 - URINARY TRACT INFECTION, SITE NOT SPECIFIED Comment: - UA done 09/27 showed continued large amount of LE with blood. Urine culture from 09/21 returned E. Coli with sensitivity to zosyn -continue IV zosyn q8H -vitals q8H -labs qam -may need to get her set up with her urologist for follow up (2) [id number] kidney injury Current Visit: Yes Status: Acute Qualifiers: Acute renal failure type: unspecified Chronic kidney disease stage: unspecified stage Qualified Code(s): N17.9 - Acute kidney failure, unspecified ; N18.9 - Chronic kidney disease, unspecified Base Code: N17.9 - ACUTE KIDNEY FAILURE, UNSPECIFIED; N18.9 - CHRONIC KIDNEY DISEASE, UNSPECIFIED Comment: 09/28/17- BUN and Cr fo 50/3.6 down to 40/3.0 secondary to dehydration. -continue IV hydration and clear liquid diet. -repeat labs qam (3) Dehydration Current Visit: Yes Status: Acute Base Code: E86.0 - DEHYDRATION Comment: -improving. tolerating clear liquids. vomiting resolved (4) Electrolyte imbalance Current Visit: Yes Status: Acute Base Code: E87.8 - OTH DISORDERS OF ELECTROLYTE AND FLUID BALANCE, NEC Comment: 09/28/17- improving. potassium improved to 3.2 up from 3.0 with 40meq oral potassium likely GI loss. -continue potassium 40meq po daily -recheck labs tomorrow (5) DNR (do not resuscitate) Current Visit: Yes Status: Acute Base Code: Z66 - DO NOT RESUSCITATE Comment: 09/28/17- patient is DNR
[2017-09-28] MEDS: TAZOBACTAM IVPB SCH ×4 (00:33→23:32)
[2017-09-28] MEDS: SODIUM CHLORIDE 0.9% IVPB SCH ×4 (00:33→23:32)
[2017-09-28] MEDS: PIPERACILLIN SODIUM IVPB SCH ×4 (00:33→23:32)
[2017-09-28] MEDS: LOPERAMIDE 2 MG CAPSULE PO SCH ×6 (06:31→21:31)
[2017-09-28] MEDS: LEVOTHYROXINE SODIUM 125 MCG TABLET PO SCH (06:31)
[2017-09-28 10:00] LABS: HEMATOCRIT 24.6 % (35.0-47.0); MEAN CELL VOLUME 109.3 fl (81-97); MEAN CORPUSCULAR HGB CONC 32.5 g/dl (32-36); MEAN PLATELET VOLUME 9.6 fl (7.4-10.4); PLATELET COUNT 159 K/uL (130-400); RED BLOOD COUNT 2.25 M/uL (3.80-5.40); RED CELL DISTRIBUTION WIDTH 14.4 % (11.5-14.5); WHITE BLOOD COUNT W/O DIFF 3.3 K/uL (4.2-12.2)
[2017-09-28] MEDS ORDERED: CRANBERRY 400 MG PO SCH (10:00)
[2017-09-28] MEDS: 0.9 % SODIUM CHLORIDE 10ML SYR IVP ONE ×2 (10:00→10:50)
[2017-09-28] MEDS ORDERED: B COMPLEX WITH VITAMIN C PO SCH (10:00)
[2017-09-28] MEDS: IPRATROPIUM BR 0.02% NEB (0.5MG) INH SCH ×2 (10:00→21:39)
[2017-09-28 10:04] LABS: MEAN CORPUSCULAR HEMOGLOBIN 35.5 pg (27-33)
[2017-09-28] MEDS: CHOLECALCIFEROL 1,000 UNIT TABLET PO SCH (10:42)
[2017-09-28] MEDS: ALLOPURINOL 100 MG TAB PO SCH (10:42)
[2017-09-28] MEDS: MULTIVITAMINS/MINERALS TABLET PO SCH (10:42)
[2017-09-28] MEDS: ASPIRIN 325 MG TAB ENTERIC-COATED PO SCH (10:42)
[2017-09-28] MEDS: PALBOCICLIB 125 MG PO SCH (10:44)
[2017-09-28] MEDS: COLESTIPOL HCL 1 GM PO SCH (10:47)
[2017-09-28] MEDS ORDERED: HEPARIN SODIUM FLUSH 100 UNITS/ML SYR 5ML IV ONE (10:55)
[2017-09-28] MEDS ORDERED: 0.9 % SODIUM CHLORIDE 10ML SYR IVP ONE (10:55)
[2017-09-28] MEDS: CALCITRIOL 0.25 MCG PO SCH (10:57)
[2017-09-28 11:06] LABS: ALBUMIN 3.3 g/dL (4.0-5.0); ALKALINE PHOSPHATASE 86 U/L (35-104); ALT/SGPT 10 U/L (<33); AST/SGOT 18 U/L (10.0-35.0); BILIRUBIN,TOTAL < 0.20 mg/dL (0.2-1.0); BLOOD UREA NITROGEN 40 mg/dL (8-23); EST GLOMERULAR FILTRATION RATE 16 mL/min; GLUCOSE,RANDOM 158 mg/dL (74-109); TOTAL PROTEIN 6.7 g/dL (6.6-8.7)
[2017-09-28] MEDS ORDERED: POTASSIUM CHLORIDE 20 MEQ TABLET PO ONE (12:17)
[2017-09-29] MEDS: LEVOTHYROXINE SODIUM 125 MCG TABLET PO SCH (06:04)
[2017-09-29] MEDS: LOPERAMIDE 2 MG CAPSULE PO SCH ×6 (06:04→21:30)
[2017-09-29] MEDS: HEPARIN SODIUM FLUSH 100 UNITS/ML SYR 5ML IV PRN ×2 (08:45→18:12)
[2017-09-29] MEDS: TAZOBACTAM IVPB SCH ×2 (08:50→17:16)
[2017-09-29] MEDS: SODIUM CHLORIDE 0.9% IVPB SCH ×2 (08:50→17:16)
[2017-09-29] MEDS: PIPERACILLIN SODIUM IVPB SCH ×2 (08:50→17:16)
[2017-09-29] MEDS: IPRATROPIUM BR 0.02% NEB (0.5MG) INH SCH ×2 (09:47→23:14)
[2017-09-29 10:07] LABS: ALB/GLOB RATIO 0.9 (1.1-1.8); ALBUMIN 3.3 g/dL (4.0-5.0); BILIRUBIN,TOTAL 0.2 mg/dL (0.2-1.0); CREATININE 2.9 mg/dL (0.5-0.9); TOTAL PROTEIN 6.8 g/dL (6.6-8.7)
--- NOTE | 2017-09-29 10:31 | RADIOLOGY REPORT ---
EXAM: CHEST 2 VIEWS HISTORY: DIFFICULTY IN BREATHING. COMPARISON: 05/17/2015. TECHNIQUE: Frontal and lateral views of the chest were performed. FINDINGS: Heart size is normal. Right Vylziv-W-Ruoe catheter in place. Lungs are hyperinflated. There is a calcification projecting over the right lateral lung base. There is a high-riding humerus suggestive of chronic rotator cuff injury. No infiltrate or pleural effusion. IMPRESSION: 1. HYPERINFLATED LUNGS. NO INFILTRATE OR PLEURAL EFFUSION. 2. CALCIFICATION PROJECTING OVER THE RIGHT COSTOPHRENIC ANGLE. THIS WAS NOT DEFINITIVELY IDENTIFIED ON THE PRIOR EXAMINATION. JOB NUMBER: [id number] [facility]
[2017-09-29] MEDS: MULTIVITAMINS/MINERALS TABLET PO SCH (10:52)
[2017-09-29] MEDS: ASPIRIN 325 MG TAB ENTERIC-COATED PO SCH (10:53)
[2017-09-29] MEDS: CHOLECALCIFEROL 1,000 UNIT TABLET PO SCH (10:53)
[2017-09-29] MEDS: ALLOPURINOL 100 MG TAB PO SCH (10:53)
[2017-09-29] MEDS: COLESTIPOL HCL 1 GM PO SCH (10:55)
[2017-09-29] MEDS: CALCITRIOL 0.25 MCG PO SCH (10:55)
[2017-09-29] MEDS: 0.9 % SODIUM CHLORIDE 10ML SYR IVP PRN ×2 (11:21→18:12)
[2017-09-29] MEDS: PALBOCICLIB 125 MG PO SCH (11:43)
--- NOTE | 2017-09-29 14:37 | Physician Progress Note ---
Subjective - Date Date of Physician Progress Note: 09/29/17 - Subjective Subjective Comment: 09/29/17-Patient states she is feeling better today. She has more strength and has been independent transferring in bed and walking with her walker to bathroom. She has had some loose stool today which is normal for her. Says the color of her urine has improved as well, more clear. She is still having some cough and chest congestion, but denies shortness of breath or chest pain. tolerating her regular diet. Objective - Vital Signs Vital Signs: Vital Signs - Last 24 Hrs Temp Pulse Pulse Resp BP BP Pulse Ox 09/29/17 09:47 73 16 100 09/29/17 06:33 98.1 F 63 16 132/39 94 L 09/28/17 23:00 99.1 F 63 16 156/69 96 09/28/17 21:39 64 16 09/28/17 21:00 16 09/28/17 19:53 97.9 F 139/54 09/28/17 15:00 97.9 F 63 16 139/54 99 - General General Appearance: Alert, Oriented x3, Cooperative, No acute distress - Head Head exam: Normal inspection - Eye Eye exam: Normal appearance, PERRL Pupils: Normal accommodation - ENT ENT exam: Normal exam, Mucous membranes dry, Normal external ear exam, Normal orophraynx, TM's normal bilaterally Ear exam: Normal external inspection. negative: External canal tenderness Nasal Exam: Normal inspection. negative: Discharge, Sinus tenderness Mouth exam: Normal external inspection, Tongue normal Teeth exam: Normal inspection. negative: Dental caries Throat exam: Normal inspection. negative: Tonsillar erythema, Tonsillar exudate - Neck Neck exam: Normal inspection, Full ROM. negative: Lymphadenopathy, Meningismus , Tenderness - Respiratory Respiratory exam: Decreased breath sounds, Prolonged expiratory, Rhonchi (few bases). negative: Accessory muscle use, Chest wall tenderness, Respiratory distress - Cardiovascular Cardiovascular Exam: Regular rate, Normal rhythm, Normal heart sounds - GI/Abdominal GI/Abdominal exam: Soft, Normal bowel sounds. negative: Distended, Guarding, Rebound, Rigid, Tenderness - Rectal Rectal exam: Deferred - exam: Deferred - Extremities Extremities exam: Normal inspection, Full ROM, Normal capillary refill. negative: Calf tenderness, Pedal edema, Tenderness - Back Back exam: Reports: Normal inspection, Full ROM. Denies: CVA tenderness (R), CVA tenderness (L), Muscle spasm, Rash noted, Tenderness - Neurological Neurological exam: Alert, Normal gait, Oriented X3, Reflexes normal - Psychiatric Psychiatric exam: Normal affect, Normal mood - Skin Skin exam: Dry, Intact, Normal color, Warm Assessment and Plan - Assessment and Plan (1) UTI (urinary tract infection) Current Visit: No Status: Acute Qualifiers: Urinary tract infection type: acute cystitis Hematuria presence: with hematuria Qualified Code(s): N30.01 - Acute cystitis with hematuria Base Code: N39.0 - URINARY TRACT INFECTION, SITE NOT SPECIFIED Comment: - improving. UA done 09/27 showed continued large amount of LE with blood. Urine culture from 09/21 returned E. Coli with sensitivity to zosyn -continue IV zosyn q8H -vitals q8H -labs qam -PT/OT consulted to determine need for home therapy with her generalized weakness. -SW consulted to aid setting up home health care and meals on wheels (2) Giifc-kc-ekiosuz kidney injury Current Visit: Yes Status: Acute Qualifiers: Acute renal failure type: unspecified Chronic kidney disease stage: unspecified stage Qualified Code(s): N17.9 - Acute kidney failure, unspecified ; N18.9 - Chronic kidney disease, unspecified Base Code: N17.9 - ACUTE KIDNEY FAILURE, UNSPECIFIED; N18.9 - CHRONIC KIDNEY DISEASE, UNSPECIFIED Comment: 09/29/17- Improving. BUN and Cr improved to 32/ 2.9 eGFR of 17. Baseline is 20. -continue gentle IV hydration -repeat labs qam (3) Dehydration Current Visit: Yes Status: Resolved Base Code: E86.0 - DEHYDRATION Comment : 09/28/17- resolved. (4) Electrolyte imbalance Current Visit: Yes Status: Acute Base Code: E87.8 - OTH DISORDERS OF ELECTROLYTE AND FLUID BALANCE, NEC Comment: 09/29/17- improving. potassium 3.1 this am. Has had many loose stools today. -continue potassium 40meq po bid -recheck labs tomorrow (5) DNR (do not resuscitate) Current Visit: Yes Status: Acute Base Code: Z66 - DO NOT RESUSCITATE Comment: 09/29/17- patient is DNR Results - Labs Result Diagrams: 09/28/17 09:51 09/29/17 09:42 Labs Last 24 Hours: Laboratory Results - last 24 hr 09/29/17 09:42 Sodium 145 Potassium 3.1 L Chloride 111 H Carbon Dioxide 13.0 L Anion Gap 21.0 H BUN 32 H Creatinine 2.9 H Estimated GFR 17 Random Glucose 180 H Calcium 8.0 L Total Bilirubin 0.20 AST 19 ALT 9 Alkaline Phosphatase 86 Total Protein 6.8 Albumin 3.3 L Globulin 3.5 Albumin/Globulin Ratio 0.9 L DVT/PE Assessment - Risk for VTE Risk for VTE: No Risk Level: High Risk Assessment Date: 09/28/17 Risk Assessment Time: 11:00 VTE Orders Placed or Will Be Placed: No VTE Reason for No Prophylaxis: Contraindicated (very high fall risk ) - Active Medicaitons Current Medications: Current Medications Acetaminophen (Tylenol 500mg Tab) 500 mg PO Q6H PRN PRN Reason: PAIN/TEMP Allopurinol (Zyloprim) 100 mg PO DAILY [facility] Last Admin: 09/29/17 10:53 Dose: 100 mg Aspirin (Ecotrin (Ec)) 325 mg PO DAILY [facility] Last Admin: 09/29/17 10:53 Dose: 325 mg Heparin Sodium (Porcine) () 500 unit IV Q12HR PRN PRN Reason: flush Last Admin: 09/29/17 08:45 Dose: 500 unit Piperacillin Sod/Tazobactam (Sod 2.25 gm/ Sodium Chloride) 50 mls @ 100 mls/hr IVPB Q8H [facility] Last Infusion: 09/29/17 09:34 Dose: Infused Ipratropium [place] (Atrovent 0.02% Neb) 2.5 ml INH BID [facility] Last Admin: 09/29/17 09:47 Dose: 2.5 ml Levothyroxine Sodium (Synthroid) 125 mcg PO DAILYTHY [facility] Last Admin: 09/29/17 06:04 Dose: 125 mcg Loperamide HCl (Immodium) 2 mg PO 0600,0900,1200,1500 [facility] Last Admin: 09/29/17 14:10 Dose: 2 mg Loperamide HCl (Immodium) 2 mg PO 1800,2100 [facility] Last Admin: 09/28/17 21:31 Dose: 2 mg Multivitamins/Minerals (Centrum) 1 tab PO DAILY [facility] Last Admin: 09/29/17 10:52 Dose: 1 tab Non-Formulary Medication (Calcitriol [Calcitriol]) 0.25 mcg PO DAILY [facility] Last Admin: 09/29/17 10:55 Dose: Not Given Non-Formulary Medication (Colestipol Hcl [Colestipol Hcl]) 1 gm PO DAILY [facility] Last Admin: 09/29/17 10:55 Dose: 1 gm Non-Formulary Misc (Palbociclib [ Ibrance] 125 Mg) 125 mg PO DAILY [facility] Last Admin: 09/29/17 11:43 Dose: 125 mg Sodium Chloride () 10 ml IVP Q12HR PRN PRN Reason: flush Last Admin: 09/29/17 11:21 Dose: 10 ml Vitamin D (Vitamin D3) 2,000 unit PO DAILY [facility] Last Admin: 09/29/17 10:53 Dose: 2,000 unit AMI Plan - Labs Result Diagrams: 09/28/17 09:51 09/29/17 09:42
[2017-09-30] MEDS: SODIUM CHLORIDE 0.9% IVPB SCH ×3 (00:43→16:25)
[2017-09-30] MEDS: TAZOBACTAM IVPB SCH ×3 (00:43→16:25)
[2017-09-30] MEDS: PIPERACILLIN SODIUM IVPB SCH ×3 (00:43→16:25)
[2017-09-30] MEDS: LEVOTHYROXINE SODIUM 125 MCG TABLET PO SCH (06:18)
[2017-09-30] MEDS: LOPERAMIDE 2 MG CAPSULE PO SCH ×4 (06:18→14:33)
[2017-09-30 07:01] LABS: ALB/GLOB RATIO 0.9 (1.1-1.8); ALBUMIN 3.2 g/dL (4.0-5.0); BILIRUBIN,TOTAL 0.2 mg/dL (0.2-1.0); CREATININE 2.6 mg/dL (0.5-0.9); TOTAL PROTEIN 6.8 g/dL (6.6-8.7)
--- NOTE | 2017-09-30 07:33 | Discharge Summary ---
Providers Discharge Summary Date: 09/30/17 Date of admission: 09/27/17 14:32 Expected Date of Discharge: 09/30/17 Attending physician: ALFREDA MONTES Primary care physician: Salvador Coker Consults: Consult Orders 09/29/17 14:51 Consult - Case Management Now Comment: pt would like home care and meals on wheels set up Reason For Exam: home care Physical Exam - Vital Signs Vital Signs: Vital Signs - Last 24 Hrs Temp Pulse Pulse Resp BP Pulse Ox 09/29/17 23:20 60 20 09/29/17 23:14 60 20 98 09/29/17 22:51 98.2 F 64 18 154/74 98 09/29/17 15:00 97.9 F 64 16 145/76 100 09/29/17 09:47 73 16 100 - General General Appearance: Alert, Oriented x3, Cooperative, No acute distress - Head Head exam: Normal inspection - Eye Eye exam: Normal appearance, PERRL Pupils: Normal accommodation - ENT ENT exam: Normal exam, Mucous membranes dry, Normal external ear exam, Normal orophraynx, TM's normal bilaterally Ear exam: Normal external inspection. negative: External canal tenderness Nasal Exam: Normal inspection. negative: Discharge, Sinus tenderness Mouth exam: Normal external inspection, Tongue normal Teeth exam: Normal inspection. negative: Dental caries Throat exam: Normal inspection. negative: Tonsillar erythema, Tonsillar exudate - Neck Neck exam: Normal inspection, Full ROM. negative: Lymphadenopathy, Meningismus , Tenderness - Respiratory Respiratory exam: Decreased breath sounds, Prolonged expiratory, Rhonchi (few bases). negative: Accessory muscle use, Chest wall tenderness, Respiratory distress - Cardiovascular Cardiovascular Exam: Regular rate, Normal rhythm, Normal heart sounds - GI/Abdominal GI/Abdominal exam: Soft, Normal bowel sounds. negative: Distended, Guarding, Rebound, Rigid, Tenderness - Rectal Rectal exam: Deferred - exam: Deferred - Extremities Extremities exam: Normal inspection, Full ROM, Normal capillary refill. negative: Calf tenderness, Pedal edema, Tenderness - Back Back exam: Reports: Normal inspection, Full ROM. Denies: CVA tenderness (R), CVA tenderness (L), Muscle spasm, Rash noted, Tenderness - Neurological Neurological exam: Alert, Normal gait, Oriented X3, Reflexes normal - Psychiatric Psychiatric exam: Normal affect, Normal mood - Skin Skin exam: Dry, Intact, Normal color, Warm Hospitalization - Hospitalization Admission Diagnosis: Dehydration; acute on chronic renal insufficiency; UTI; DNR status; electrolyte imbalance - Problem List/Discharge Diagnosis (1) UTI (urinary tract infection) Current Visit: No Status: Acute Discharge Diagnosis: Urinary tract infection type: acute cystitis Hematuria presence: with hematuria Qualified Code(s): N30.01 - Acute cystitis with hematuria Base Code: N39.0 - URINARY TRACT INFECTION, SITE NOT SPECIFIED Comment: - improving. UA done 09/27 showed continued large amount of LE with blood. U -plan to discharge home today. Has follow up wt pcp Tomorrow. -discussed antibiotic options with pharmacy. Renal function improved. will transition to oral bactrim 400-80mg po bid for 7 more days. will repeat labs tomorrow and on 10/05 to check renal function and potassium level. results to be faxed to pcp and Dr. Valentino - set up home health care with [facility] to continue home nursing, PT/OT. Meals on wheels also set up (2) [id number] kidney injury Current Visit: Yes Status: Acute Discharge Diagnosis: Acute renal failure type: unspecified Chronic kidney disease stage: stage 4 (severe) Qualified Code(s): N17.9 - Acute kidney failure, unspecified; N18.4 - Chronic kidney disease, stage 4 (severe) Base Code: N17.9 - ACUTE KIDNEY FAILURE, UNSPECIFIED; N18.9 - CHRONIC KIDNEY DISEASE, UNSPECIFIED Comment: 09/30/17-resolving. BUN and Cr improved to 29/ 2.6 with eGFR of 19. Baseline gfr of 20. -continue oral hydration (3) Electrolyte imbalance Current Visit: Yes Status: Acute Base Code: E87.8 - OT DISORDERS OF ELECTROLYTE AND FLUID BALANCE, NEC Comment: 09/30/17- resolving. potassium normalized. AG trending down from 27 to 19. -recheck labs tomorrow in 5 days and follow up with pcp tomorrow as scheduled (4) DNR (do not resuscitate) Current Visit: Yes Status: Acute Base Code: Z66 - DO NOT RESUSCITATE Comment: 09/30/17- patient is DNR - Hospitalization Course Disposition: Home Health Service Hospital Course: 77yo female with CC of weakness, vomiting. She has history of metastatic breast cancer and follows with Dr. valentino. HTN, CKD. She has had frequent UTI's as well. PMH includes breast cancer diagnosed 2002, treated with lumpectomy, chemo, and XRT with remission for 10 years. 2012 recurrence in her bowels and then her gallbladder, which was removed 2 years ago. Currently she states the cancer is in her stomach, but today she has no symptoms of stomach problems. She also has CRD, DVT left leg in the past, No PE. patient presented to the ED Saturday with weakness, vomiting and some coughing. She denies chest pain, abdominal pain, fevers, but does have some chills. , 09-19-17, she started on Amoxicillin for respiratory bronchitis/ sinusitis by her pcp. This past 09-21-17, the patient states she was seen in our ED additionally for UTI/kidney infection and pneumonia seen on her CT. She was started on Cipro for this and told to continue the amoxicillin. After starting on the cipro, she states her chronic diarrhea worsened, so she called back and her cipro was discontinued and she was instructed to start macrobid instead, but never got to start it because she came back to the ED. While in the ED, patient had labs completed. CBC showed hgb of 11 with wBC count of 4.5. Her CMP showed several abnormalities. potassium low at 3.0, bicarb low at 15, AG of 27. BUN and CR elevated above her baseline at 50 and 3.6 respectively. UA showed large amount of LE and blood and CXR was negative for acute process. She had a urine culture from her ED visit a few days prior showing E. Coli resistant to most abx. She was sensitive to zosyn and so this was started and she was admitted for further IV abx and IVF. 09/28/17- Patient states she is feeling better today. she still feels weaker than her baseline but no longer feeling nauseated like she had been. She states she has chronic diarrhea since the bowel resection and that has not changed. She is tolerating clear liquids which she was unable to do yesterday. She says her urine color has improved with the fluids. She denies any abdominal pain, fever, chills. She is still having some chest congestion and cough that is not productive. She was diagnosed on CT scan last week with a mild RLL infiltrate and was treated with amox and a few days of cipro. Her repeat CXR showed NAP. 09/30/17- patient doing very well today. says she is significantly improved. No further nausea or vomiting and tolerating her regular diet. Development Geologist met with patient to discuss renal diet. She is still having loose stool which is her baseline. She has been up ambulating with her walker and had PT/OT evaluation this morning. She continues to have some nasal congestion but cough has improved and denies shortness of breath. pcp: Dr. Coker oncologist: Dr. Valentino Procedures: Imaging and X-Rays 09/27/17 11:31 CHEST 2 VIEWS [RAD] Stat Abnormal Labs: Abnormal Lab Results 09/27/17 09/27/17 09/27/17 Range/Units 11:47 11:47 13:45 WBC (4.2-12.2) K/uL RBC 2.98 L (3.80-5.40) M/uL Hgb 11.0 L (11.6-16.0) gm/dl Hct 32.1 L (35.0-47.0) % MCV 107.7 H (81-97) fl MCH 36.9 H (27-33) pg Neutrophils % 81.0 H (47-80) % Lymphocytes 13.0 L (16-45) % Sodium (136-145) mmol/L Potassium 3.0 L (3.4-4.5) mmol/L Chloride (98-107) mmol/L Carbon Dioxide 15.0 L (22-29) mmol/L Anion Gap 27.0 H (7-16) BUN 50 H (8-23) mg/dL Creatinine 3.6 H (0.5-0.9) mg/dL Random Glucose 130 H (74-109) mg/dL Calcium (8.8-10.2) mg/dL Total Bilirubin (0.2-1.0) mg/dL Alkaline Phosphatase 117 H (35-104) U/L NT-Pro-B Natriuret Pep 953.60 H (<450) pg/mL Albumin (4.0-5.0) g/dL Albumin/Globulin Ratio 0.9 L (1.1-1.8) Urine Protein 100 mg/dl H (NEGATIVE) Urine Blood Small H (NEGATIVE) Ur Leukocyte Esterase Large H (NEGATIVE) 09/28/17 09/28/17 09/29/17 Range/Units 09:51 09:51 09:42 WBC 3.3 L (4.2-12.2) K/uL RBC 2.25 L (3.80-5.40) M/uL Hgb 8.0 L (11.6-16.0) gm/dl Hct 24.6 L (35.0-47.0) % MCV 109.3 H (81-97) fl MCH 35.5 H (27-33) pg Neutrophils % (47-80) % Lymphocytes 14.0 L (16-45) % Sodium (136-145) mmol/L Potassium 3.2 L 3.1 L (3.4-4.5) mmol/L Chloride 110 H 111 H (98-107) mmol/L Carbon Dioxide 13.0 L 13.0 L (22-29) mmol/L Anion Gap 22.0 H 21.0 H (7-16) BUN 40 H 32 H (8-23) mg/dL Creatinine 3.0 H 2.9 H (0.5-0.9) mg/dL Random Glucose 158 H 180 H (74-109) mg/dL Calcium 8.1 L 8.0 L (8.8-10.2) mg/dL Total Bilirubin < 0.20 L (0.2-1.0) mg/dL Alkaline Phosphatase (35-104) U/L NT-Pro-B Natriuret Pep (<450) pg/mL Albumin 3.3 L 3.3 L (4.0-5.0) g/dL Albumin/Globulin Ratio 1.0 L 0.9 L (1.1-1.8) Urine Protein (NEGATIVE) Urine Blood (NEGATIVE) Ur Leukocyte Esterase (NEGATIVE) 09/30/17 Range/Units 06:20 WBC (4.2-12.2) K/uL RBC (3.80-5.40) M/uL Hgb (11.6-16.0) gm/dl Hct (35.0-47.0) % MCV (81-97) fl MCH (27-33) pg Neutrophils % (47-80) % Lymphocytes (16-45) % Sodium 146 H (136-145) mmol/L Potassium (3.4-4.5) mmol/L Chloride 113 H (98-107) mmol/L Carbon Dioxide 14.0 L (22-29) mmol/L Anion Gap 19.0 H (7-16) BUN 29 H (8-23) mg/dL Creatinine 2.6 H (0.5-0.9) mg/dL Random Glucose (74-109) mg/dL Calcium 8.0 L (8.8-10.2) mg/dL Total Bilirubin (0.2-1.0) mg/dL Alkaline Phosphatase (35-104) U/L NT-Pro-B Natriuret Pep (<450) pg/mL Albumin 3.2 L (4.0-5.0) g/dL Albumin/Globulin Ratio 0.9 L (1.1-1.8) Urine Protein (NEGATIVE) Urine Blood (NEGATIVE) Ur Leukocyte Esterase (NEGATIVE) Condition at Discharge: (2) Stable Discharge Medications - Discharge Medications Prescriptions: Sulfamethoxazole/Trimethoprim [Bactrim 400-80 mg Tablet] 1 each PO BID #14 tablet Home Medications: Ambulatory Orders Levothyroxine Sodium [Synthroid] 125 mcg PO DAILY 12/04/13 [Last Taken 1 Day Ago ~07/18/17] Aspirin [Aspirin EC] 325 mg PO DAILY 11/07/15 [Last Taken 1 Day Ago ~07/18/17] Pantoprazole Sodium [Protonix] 20 mg PO DAILY 11/07/15 [Last Taken 1 Day Ago ~] Acetaminophen [Tylenol 500Mg Tab] 500 mg PO Q6H PRN #0 tablet 11/10/15 [Last Taken 1 Day Ago ~07/18/17] Allopurinol [Zyloprim] 100 mg PO DAILY #30 tablet 11/10/15 [Last Taken 1 Day Ago ~07/18/17] Palbociclib [Ibrance] 75 mg PO DAILY 03/21/17 [Last Taken 1 Day Ago ~07/18/17] Calcitriol 0.25 mcg PO DAILY #30 capsule 03/24/17 [Last Taken 1 Day Ago ~] Loperamide HCl [Anti-Diarrhea] 2 mg PO ASDIR #0 03/24/17 [Last Taken 1 Day Ago ~ 07/18/17] B-Complex with Vitamin C [Vitamin B-Complex with Vit C] 1 each PO DAILY [Last Taken 1 Day Ago ~07/18/17] Cholecalciferol (Vitamin D3) [Vitamin D3] 2,000 unit PO DAILY 07/19/17 [Last Taken 1 Day Ago ~07/18/17] Colestipol HCl 1 gm PO DAILY 07/19/17 [Last Taken 1 Day Ago ~07/18/17] Cranberry 400 mg PO DAILY 07/19/17 [Last Taken 1 Day Ago ~07/18/17] Multivitamin [Multi-Vitamin Daily] 1 each PO DAILY 07/19/17 [Last Taken 1 Day Ago ~07/18/17] Acetaminop W/ Codeine 300/30Mg [Tylenol with Codeine #3] 1 tab PO Q6H #15 tab [Last Taken Unknown] Ipratropium Br. 0.02% Neb [Atrovent 0.02% Neb] 2.5 ml INH BID 09/21/17 [Last Taken Unknown] Sulfamethoxazole/Trimethoprim [Bactrim 400-80 mg Tablet] 1 each PO BID #14 tablet 09/30/17 [Last Taken Unknown] Discharge Plan - Discharge Instructions Activity at Discharge: As Per Physical Therapy Diet at Discharge: Advance to Usual Diet Additional Instructions: Please follow up with your primary care on Sunday 10/01 as scheduled. Discontinue the macrobid, cipro, and amoxicillin that you had been prescribed previously Start Bactrim 400-80mg twice daily for the next 7 days. Your next dose will be due this evening. Continue your other home medications. Labs to be drawn at [facility] on Sunday 10/01 and Thursday 10/05. [facility] will see you at home. They will call to set up their first visit. Please call with any questions or concerns Return to ED for any new or worsening symptoms. Quality Measures - Quality Measures Quality Measures: Advance Directives, Documentation of Current Medications in Medical Record, Elder Maltreatment Screen and Follow-Up Plan, Screening for High Blood Pressure and F/U Documented - Current Medications Quality Measure: Measure #130: Documentation of Current Medications Documentation of Current Medications: <Current Medications Documented/Reviewed> [G8427] - Blood Pressure Screening Quality Measure: Screening for High Blood Pressure and Follow-Up Documented Does Patient Have Any of the Following: Active Dx of HTN Blood Pressure Classification: Pre-Hypertensive BP Reading Systolic Measurement: 139 Diastolic Measurement: 54 Screening for High Blood Pressure: Patient Exclusion, Hx of HTN [G9744] - Advance Directives Quality Measure: Measure #47: Care Plan Advance Directives Established: Yes Advance Directives Information Provided To Patient: Already Provided Advance Directives on File: No Living Will: No Power of Chief Environmental Commitment Officer: Yes Power of Chief Environmental Commitment Officer Name: Ro Todd Advance Care Planning: <Care Plan/Decision Maker Documented; Discussed & Documented> [1123F] - Elder Abuse Suspicion Index Screening: Elder Abuse Suspicion Index Screening Rely on people for bathing, dressing, shopping, banking, etc: No Prevented from getting food, clothes, medication, etc: No Made to feel shamed or threatened by someone: No Forced to sign papers or use money against will: No Feel afraid, touched in ways not wanted or hurt physically: No Poor eye contact, withdrawn, malnourished, cuts or bruises: No Screening Result: Negative result EASI Reference Information: Trace PATEL, Heaven C, Minda D, Sho Elkins.Development and validation of a tool to assist physicians identification of elder abuse: The Elder Abuse Suspicion Index (EASI ). Journal of Elder Abuse and Neglect, 2008; 20 (3): 276-300. - Elder Maltreatment Screen Quality Measures: Elder Maltreatment Screen and Follow-Up Plan Elder Maltreatment Screen: <Negative, No Follow-Up Plan Required> [G8734]
[2017-09-30] MEDS: MULTIVITAMINS/MINERALS TABLET PO SCH (09:15)
[2017-09-30] MEDS: CHOLECALCIFEROL 1,000 UNIT TABLET PO SCH (09:15)
--- NOTE | 2017-09-30 10:22 | Rehab Evaluation ---
Patient Information - Patient Information Diagnosis: dehydration, renal insufficiency, UTI, electrolyte imbalance Ordered Treatment: OT Evaluate and Treat Status: Initial Evaluation Surgery: No Past Medical/Surgical Hx: PAST MEDICAL/SURGICAL HISTORY Past Surgical History Ramon kidneys "tapped."; D&C's, Nephroscopy Bowel resection. right breast lumpectomy. Ramon carpal tunnel. Hysterectomy. [place] tooth. several d&c's cholecystectomy colon bypass implanted port in chest PMH - Respiratory Hx Respiratory Disorders No PMH - Cardiovascular Hx Cardiovascular Disorders Yes Hx Abnormal EKG Yes: Regularly irregular Hx Cardiac Catheterization Yes Hx Edema Yes Hx Hypertension Yes Hx Irregular Heartbeat Yes PMH - Neuro Hx Neurological Disorders Yes Hx Headaches Yes Hx Neuropathy Yes PMH - GI Hx Gastrointestinal Disorders Yes Hx Abdominal Pain Gallstones Hx Diverticulitis Yes Hx Nausea/Vomiting Yes Hx Obstructive Bowel Yes: "waited through 3 episodes since i was here last time" Hx Ulcer Yes Comment: Diarrhea from the bowel surgery. Hx of instestinal CA. PMH - Hx Genitourinary Disorders Yes Hx Age of Menopause 50 Hx Bladder Problem Yes Hx Dialysis Yes Hx Renal Disease Yes: chronic stage 3 Hx Urinary Tract Infection Yes Comment: Stents in ureters and removed per pt. PMH - Endocrine Hx Endocrine Disorders Yes Hx Diabetes Yes: diet controlled Hx Thyroid Disease Yes: low PMH - Musculoskeletal Hx Musculoskeletal Disorders Yes Hx Arthritis Yes Hx Back Injury Yes: "I cracked my tailbone a couple times." Hx Gout Yes Hx Osteoporosis Yes PMH - Psych Hx Psychiatric Problems No PMH - Hematology/Oncology Hx Hematology/Oncology Yes Disorders Hx Anemia Yes Hx Cancer Yes: large intestine, breast 2-3 yrs ago Hx Chemotherapy Yes: 07/19/2017 Hx Radiation Therapy Yes Hx Blood Transfusion Reaction No Premorbid Status: Detail (Pt lives alone in a 1 story house with basement (her laundry is in the basement). She has 1 step, no handrails at the entrance and an additional step inside the house. She has a walk in shower, no grab bars and usually stands to shower. She has a standard height toilet with ramon bars attached to the toilet. Prior to the last few months she was Ind with all ADLs and IADLs but due to her declining health her daughters have been assisting her with laundry and home mgmt activities. She has a 2 wheeled walker, wheelchair and crutches.) Social History: Detail (Supportive daughters who live close by.) Precautions: [place], Fall - Time With Patient Total Time Spent With Patient (Min): 30 Treatment Procedures: Detail (OT eval low complexity) Subjective Information - Subjective Information Per Patient Objective Data - Pain Pain Present: No - Mental Status Patient Orientation: Oriented x3 - Visual Perception Appears within normal limits for therapeutic activities - ROM Not within normal limits (Ramon shoulder flexion limited - right to approx. 110 degrees, left to approx. 80 degrees, ramon elbow, wrist and hand AROM WNL. Pt reports shoulder motion has been limited for several years.) - Strength/Tone Not within normal limits (Ramon shoulder strength 3+/5 within AROM limitations, ramon elbow flexion and extension 4/5, ramon frozen pie maker 4/5.) - Coordination Deficit (Pt reports she has difficulty with fine motor coordination due to neuropathy.) - Bed Mobility Independent (Ind with supine to sit and sit to supine.) - Transfers Independent (Ind with sit to stand from EOB.) - Balance Balance Sitting: Good Balance Standing: Good - Sensation Deficit (Pt reports she has some numbness in hands due to neuropathy.) - Gait Detail (Pt able to amb in hallway with 2 wheeled walker Indly.) - ADL's/IADL's Detail (Pt reports she has been completing toileting Indly, she has not attempted other ADLs.) Therapy Assessment - Therapy Assessment Detail (Pt presents with decreased endurance as well as decreased Ind with ADLs/ IADLs.) Problem List - Problem List Occupational Therapy Problem List: Detail (1. Decreased Ind with self care activities 2. Decreased overall endurance needed for safe and Ind ADLs/IADLs.) Goals - Goals Occupational Therapy Goals: 1. Pt will be safe and Ind with self care activities. Prognosis - Prognosis Good Plan - Plan Occupational Therapy Plan: OT will see pt 1-2 times per week until discharge. Recommend home OT to address safety, endurance and Ind with ADLs/IADLs.
[2017-09-30] MEDS: COLESTIPOL HCL 1 GM PO SCH (11:01)
[2017-09-30] MEDS: ASPIRIN 325 MG TAB ENTERIC-COATED PO SCH (11:02)
[2017-09-30] MEDS: ALLOPURINOL 100 MG TAB PO SCH (11:02)
[2017-09-30] MEDS: PALBOCICLIB 125 MG PO SCH (11:19)
[2017-09-30] MEDS: CALCITRIOL 0.25 MCG PO SCH (11:20)
[2017-09-30] MEDS: IPRATROPIUM BR 0.02% NEB (0.5MG) INH SCH (11:49)
--- NOTE | 2017-09-30 13:34 | Rehab Evaluation ---
Patient Information - Patient Information Diagnosis: dehydration, renal insufficiency, UTI, electrolyte imbalance Ordered Treatment: PT Evaluate and Treat Status: Initial Evaluation Surgery: No Past Medical/Surgical Hx: PAST MEDICAL/SURGICAL HISTORY Past Surgical History Ramon kidneys "tapped."; D&C's, Nephroscopy Bowel resection. right breast lumpectomy. Ramon carpal tunnel. Hysterectomy. [place] tooth. several d&c's cholecystectomy colon bypass implanted port in chest PMH - Respiratory Hx Respiratory Disorders No PMH - Cardiovascular Hx Cardiovascular Disorders Yes Hx Abnormal EKG Yes: Regularly irregular Hx Cardiac Catheterization Yes Hx Edema Yes Hx Hypertension Yes Hx Irregular Heartbeat Yes PMH - Neuro Hx Neurological Disorders Yes Hx Headaches Yes Hx Neuropathy Yes PMH - GI Hx Gastrointestinal Disorders Yes Hx Abdominal Pain Gallstones Hx Diverticulitis Yes Hx Nausea/Vomiting Yes Hx Obstructive Bowel Yes: "waited through 3 episodes since i was here last time" Hx Ulcer Yes Comment: Diarrhea from the bowel surgery. Hx of instestinal CA. PMH - Hx Genitourinary Disorders Yes Hx Age of Menopause 50 Hx Bladder Problem Yes Hx Dialysis Yes Hx Renal Disease Yes: chronic stage 3 Hx Urinary Tract Infection Yes Comment: Stents in ureters and removed per pt. PMH - Endocrine Hx Endocrine Disorders Yes Hx Diabetes Yes: diet controlled Hx Thyroid Disease Yes: low PMH - Musculoskeletal Hx Musculoskeletal Disorders Yes Hx Arthritis Yes Hx Back Injury Yes: "I cracked my tailbone a couple times." Hx Gout Yes Hx Osteoporosis Yes PMH - Psych Hx Psychiatric Problems No PMH - Hematology/Oncology Hx Hematology/Oncology Yes Disorders Hx Anemia Yes Hx Cancer Yes: large intestine, breast 2-3 yrs ago Hx Chemotherapy Yes: 07/19/2017 Hx Radiation Therapy Yes Hx Blood Transfusion Reaction No Premorbid Status: Detail (Pt lives alone in a 1 story house with basement (her laundry is in the basement). She has 1 step, no handrails at the entrance and an additional step inside the house. She has a walk in shower, no grab bars and usually stands to shower. She has a standard height toilet with ramon bars attached to the toilet. Prior to the last few months she was Ind with all ADLs and IADLs but due to her declining health her daughters have been assisting her with laundry and home mgmt activities. She has a 2 wheeled walker, wheelchair and crutches.) Social History: Detail (Supportive daughters who live close by.) Precautions: [place], Fall - Time With Patient Total Time Spent With Patient (Min): 30 Treatment Procedures: Detail (Initial Evaluation) Subjective Information - Subjective Information Per Patient (The patient had no complaints of pain.) Objective Data - Mental Status Patient Orientation: Oriented x3 - Visual Perception Appears within normal limits for therapeutic activities - ROM Within normal limits - Strength/Tone Not within normal limits (The patient's R hip musculature was 4/4, quadriceps 4+ /5, hamstrings 4-/5, ankle musculature 4+/5, L LE strength is 4+ to 5/5.) - Bed Mobility Independent (The patient was independent with supine to and from sit transfer.) - Transfers Independent (The patient was independent with sit to and from stand transfer.) - Balance Balance Sitting: Good Balance Standing: Good - Sensation Deficit (The patient has diminished sensation R LE anteriorly from hip to toes.) - Gait Detail (The patient ambulated with wheeled walker independently with assist of to push IV a distance of 108 feet x 1.) Therapy Assessment - Therapy Assessment Detail (The patient is independent with bed mobility, transfers and ambulation. The patient does exhibit decreased LE strength and decreased ability to complete prolonged physical activity. Feel the patient would benefit from short term home health PT to assess the patient's safety in her home environment.) Problem List - Problem List Physical Therapy Problem List: Detail (1) Decreased LE strength 2) Decreased ability to complete prolonged physical activity.) Occupational Therapy Problem List: Detail (1. Decreased Ind with self care activities 2. Decreased overall endurance needed for safe and Ind ADLs/IADLs.) Goals - Goals Physical Therapy Goals: 1. Increase LE strength 1/3 muscle grade to increase stability of gait and improve functional ability. 2) The patient will tolerate 30 minutes of physical activity with 1 to 2 rest periods. Occupational Therapy Goals: 1. Pt will be safe and Ind with self care activities. Prognosis - Prognosis Good Plan - Plan Physical Therapy Plan: PT will see patient one time a day until discharge from [facility]. Home PT is recommended upon discharge. Occupational Therapy Plan: OT will see pt 1-2 times per week until discharge. Recommend home OT to address safety, endurance and Ind with ADLs/IADLs.
[2017-09-30] MEDS ORDERED: 0.9 % SODIUM CHLORIDE 10ML SYR IVP ONE ×2 (16:12)
[2017-09-30] MEDS ORDERED: HEPARIN SODIUM FLUSH 100 UNITS/ML SYR 5ML IV ONE (16:12)
[2017-09-30] MEDS: HEPARIN SODIUM FLUSH 100 UNITS/ML SYR 5ML IV PRN (17:41)
== END 2017-09-30 18:22 | disposition home health service (06) | DRG 641 ==
LOC: ER 10:53 → MEDSURG 14:32
PROVIDERS: ADMIT Emergency Medicine; ATTEND Internal Medicine
DX: E86.0 Dehydration (principal); N39.0 Urinary tract infection, site not specified; N18.3 Chronic kidney disease, stage 3 (moderate); E87.8 Other disorders of electrolyte and fluid balance, not elsewhere classified; I10 Essential (primary) hypertension; G62.9 Polyneuropathy, unspecified; E11.9 Type 2 diabetes mellitus without complications; Z85.3 Personal history of malignant neoplasm of breast; Z85.038 Personal history of other malignant neoplasm of large intestine; Z90.49 Acquired absence of other specified parts of digestive tract; Z87.891 Personal history of nicotine dependence; Z66 Do not resuscitate
CPT/HCPCS: 71046; 80053; 81001; 83605; 83880; 85027; 85610; 87427; 87493; 94010; 94640; 96361; 96365; 99223; 99233; 99239; 99285; J2543

== ENCOUNTER 2018-03-22 18:25 | Inpatient (IN) | payer BC ==
[2018-03-22] MEDS ORDERED: ONDANSETRON HCL IV 4 MG/2 ML VIAL IVP ONE (18:43)
[2018-03-22] MEDS ORDERED: 0.9 % SODIUM CHLORIDE 1000ML 1,000 ML IV SCH (18:45)
--- NOTE | 2018-03-22 18:49 | Emergency Department Record ---
History of Present Illness - General Chief complaint: Nausea, Vomiting, Diarrhea Stated complaint: N/V/D Time Seen by Provider: 03/22/18 18:42 Source: Patient, Family Mode of Arrival: Stretcher Limitations: No limitations - History of Present Illness Initial comments: 77 yo female presents to ED for evaluation of nausea, vomiting, and loose stools for the past 2-3 weeks, worse over the past 1 week. 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 Patient is s/p bette, partial bowel resection for colon cancer/SBO, and hysterectomy. Patient reports numerous previous episodes of similar symptoms, etiology is not known to the patient. Patient reports recent admission to [facility] for similar symptoms but does not recall when she was last discharged. MD complaint: Nausea, Vomiting Onset/Timin -: Week(s) Description of Vomiting: Watery Description of Diarrhea: Other Associated Abdominal Pain: Yes Location: Epigastric Radiation: None Severity: Moderate Consistency: Intermittent Improves with: None Worsens with: None Associated Symptoms: Nausea/vomiting, Weakness - Related Data Home Medications Medication Instructions Recorded Confirmed Last Taken Acetaminophen [Tylenol 500Mg Tab] 1,000 mg PO Q6H 03/22/18 03/22/18 03/22/18 Ascorbic Acid [Vitamin C] 500 mg PO DAILY 03/22/18 03/22/18 03/22/18 Cranberry 400 mg PO DAILY 03/22/18 03/22/18 03/22/18 Levothyroxine Sodium [Synthroid] 125 mcg PO DAILY 03/22/18 03/22/18 03/22/18 Multivitamin [Daily Multiple 1 each PO DAILY 03/22/18 03/22/18 03/22/18 Vitamin] Previous Rx's Medication Instructions Recorded Loperamide HCl [Immodium] 2 mg PO Q4H PRN #30 capsule 03/03/18 Allergies Allergy/AdvReac Type Severity Reaction Status Date / Time morphine Allergy Severe ALTERED Verified 02/28/18 14:23 MENTAL STATUS gabapentin Allergy HYPERSENSIT Verified 02/28/18 14:23 IVITY clindamycin HCl AdvReac Intermediate NAUSEA AND Verified 02/28/18 14:23 [From CLEOCIN] VOMITING cyclobenzaprine HCl AdvReac Intermediate DIZZINESS Verified 02/28/18 14:23 [From FLEXERIL] Travel Screening - Travel/Exposure Within Last 30 Days Have you traveled within the last 30 days?: No - Travel/Exposure Within Last Year Have you traveled outside the [place] in the last year?: No - Additonal Travel Details Have you been exposed to anyone with a communicable illness?: No - Travel Symptoms Symptom Screening: None Review of Systems Constitutional: Reports: Malaise. Denies: Chills, Fever, Night sweats Eyes: Denies: Eye discharge, Eye pain ENT: Denies: Congestion, Ear pain, Epistaxis Respiratory: Denies: Cough, Dyspnea Cardiovascular: Denies: Chest pain, Dyspnea on exertion Endocrine: Denies: Fatigue, Heat or cold intolerance Gastrointestinal: Reports: Diarrhea, Nausea, Vomiting Genitourinary: Denies: Incontinence, Retention Musculoskeletal: Denies: Arthralgia, Back pain Skin: Denies: Bruising, Change in color Neurological: Denies: Abnormal gait, Confusion, Headache Psychiatric: Denies: Anxiety Hematological/Lymphatic: Denies: Anemia, Blood Clots Past Medical History - SOCIAL HISTORY Smoking Status: Former smoker Alcohol Use: None Drug Use: None - RESPIRATORY Hx Respiratory Disorders: No - CARDIOVASCULAR Hx Cardio Disorders: Yes Hx Abnormal EKG: Yes (Regularly irregular) Hx Cardiac Cath: Yes Hx Hypertension: Yes - NEURO Hx Neuro Disorders: Yes Hx Neuropathy: Yes - GI Hx GI Disorders: Yes Hx Abdominal Pain: (Gallstones) Hx Nausea/Vomiting: Yes Hx Obstructive Bowel: Yes ("waited through 3 episodes since i was here last time ") Comment:: Diarrhea from the bowel surgery. Hx of instestinal CA. 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) Hx Chemotherapy: Yes (07/19/2017) Hx Radiation Therapy: Yes Hx Blood Transfusions: Yes Family Medical History Any Significant Family History?: No Hx Heart Disease: Father, Mother, Brother/Sister, Grandparents Hx HTN: Children Physical Exam - General General Appearance: Alert, Oriented x3, Cooperative, Moderate distress, Other ( Bilious emesis is present on the patient's clothing.) Limitations: No limitations - Head Head exam: Atraumatic, Normocephalic, Normal inspection Head exam detail: negative: Abrasion, Contusion, Owens's sign, General tenderness, Hematoma, Laceration - Eye Eye exam: Normal appearance. negative: Conjunctival injection, Periorbital swelling, Periorbital tenderness, Scleral icterus - ENT Ear exam: negative: Auricular hematoma, Auricular trauma Nasal Exam: negative: Active bleeding, Discharge, Dried blood, Foreign body Mouth exam: negative: Drooling, Laceration, Muffled voice, Tongue elevation Teeth exam: Other (Adentulous) - Neck Neck exam: Normal inspection. negative: Meningismus, Tenderness - Respiratory Respiratory exam: Normal lung sounds bilaterally. negative: Respiratory distress, Rhonchi, Stridor, Wheezes - Cardiovascular Cardiovascular Exam: Regular rate, Normal rhythm, Normal heart sounds - GI/Abdominal GI/Abdominal exam: Soft, Tenderness (TTP epigastric region on examination.). negative: Rebound, Rigid - Rectal Rectal exam: Deferred - exam: Deferred - Extremities Extremities exam: Normal inspection. negative: Calf tenderness, Pedal edema, Tenderness - Back Back exam: Denies: CVA tenderness (R), CVA tenderness (L) - Neurological Neurological exam: Alert, Oriented X3 - Psychiatric Psychiatric exam: Normal affect, Normal mood - Skin Skin exam: Normal color. negative: Abrasion Type of lesion: negative: abrasion Course Vital Signs 03/22/18 18:27 Temperature 97.7 F Pulse Rate 81 Respiratory 16 Rate Blood Pressure 151/85 Pulse Ox 98 - Reevaluation(s) Reevaluation #1: 03/22/18 19:05 EKG: NSR 85, PVCs present Normal axis, normal intervals ST-T wave changes present to leads I, II, AVF, V4-V6 Changes are new from 02/08/18 Reevaluation #2: 03/22/18 19:45 Initial laboratory studies were reviewed, Hgb 10.7 (improved from previous) GFr 20 (at baseline). Hepatic panel pending. Reevaluation #3: 03/22/18 20:41 Troponin indeterminate (0.029), previous (0.015). ASA ordered. CT Abdomen and Pelvis: Colitis of the Dyardlrren-xetdydzgyu-eoqcmkd colon Mild ascites present Patient and family members were updated on all results, discussed transfer for elevated Troponin vs. admission with trending of the Troponin (and if continues to increase, will transfer). Patient and family are requesting to be admitted here at [facility]. Case was discussed with Ruth, will accept admission at this time. Will initiate Flagyl and Cipro IV and admit for further evaluation and treatment. Medical Decision Making - Lab Data Result diagrams: 03/22/18 19:17 03/22/18 19:17 Disposition Disposition: Admit Clinical Impression: Colitis, Hypokalemia, Elevated troponin level CRF (chronic renal failure) Qualifiers: Chronic kidney disease stage: stage 5 Qualified Code(s): N18.5 - Chronic kidney disease, stage 5 Disposition: Still a Patient at [facility] Decision to Admit: Admit from ER Decision to Admit Date: 03/22/18 Decision to Admit Time: 20:49 Condition: (2) Stable Forms: Patient Portal Access Time of Disposition: 20:49 Quality - Quality Measures Quality Measures: N/A - Blood Pressure Screening Does Patient Have Any of the Following: Active Dx of HTN Blood Pressure Classification: Pre-Hypertensive BP Reading Systolic Measurement: 151 Diastolic Measurement: 85 Screening for High Blood Pressure: Patient Exclusion, Hx of HTN [[id number]]
[2018-03-22 19:24] LABS: HEMATOCRIT 33.8 % (35.0-47.0); HEMOGLOBIN 10.7 gm/dl (11.6-16.0); MEAN CELL VOLUME 104.3 fl (81-97); MEAN CORPUSCULAR HGB CONC 31.7 g/dl (32-36); MEAN PLATELET VOLUME 9.9 fl (7.4-10.4); PLATELET COUNT 224 K/uL (130-400); RED BLOOD COUNT 3.24 M/uL (3.80-5.40); RED CELL DISTRIBUTION WIDTH 13.8 % (11.5-14.5); WHITE BLOOD COUNT W/O DIFF 7.4 K/uL (4.2-12.2)
[2018-03-22 19:35] LABS: CREATININE 2.5 mg/dL (0.5-0.9)
[2018-03-22 19:36] LABS: BILIRUBIN,TOTAL 0.3 mg/dL (0.2-1.0); TOTAL PROTEIN 8.2 g/dL (6.6-8.7)
[2018-03-22 19:41] LABS: ALB/GLOB RATIO 0.7 (1.1-1.8); ALBUMIN 3.3 g/dL (4.0-5.0)
[2018-03-22 19:57] LABS: PLATELET ESTIMATE NORMAL (NORMAL)
[2018-03-22] MEDS ORDERED: PROMETHAZINE HCL 12.5 MG in 0.9 % SODIUM CHLORIDE 100ML 100 ML IVPB ONE (20:11)
[2018-03-22] MEDS ORDERED: METRONIDAZOLE IVPB 500 MG/100 ML BAG IVPB ONE (20:40)
[2018-03-22] MEDS ORDERED: ASPIRIN 81 MG CHEWABLE TABLET PO ONE (20:40)
[2018-03-22] MEDS ORDERED: CIPROFLOXACIN LACTATE/D5W 400 MG/200 ML BAG IVPB ONE (20:40)
[2018-03-22 20:54] LABS: URINE APPEARANCE CLEAR; URINE BILIRUBIN NEGATIVE (NEGATIVE); URINE BLOOD TRACE-I (NEGATIVE); URINE COLOR YELLOW; URINE GLUCOSE (UA) NEGATIVE (NEGATIVE); URINE KETONE NEGATIVE (NEGATIVE); URINE LEUKOCYTE ESTERASE MODERATE (NEGATIVE); URINE NITRITE NEGATIVE (NEGATIVE); URINE PROTEIN TRACE (NEGATIVE); URINE UROBILINOGEN 0.2 E.U./dL (0.20 - 1.00)
[2018-03-22] MEDS ORDERED: SOD CHLOR 0.9% WITH KCL 40MEQ 40 MEQ/1,000 ML IV.SOLN IV ONE (20:58)
[2018-03-22 21:04] LABS: URINE EPITHELIAL CELLS NONE SEEN (FEW); URINE RBC 0 - 2 (NONE SEEN)
[2018-03-22 21:05] LABS: URINE BACTERIA 2+
[2018-03-23] MEDS: METRONIDAZOLE IVPB 500 MG/100 ML BAG IVPB SCH ×3 (05:40→22:00)
[2018-03-23] MEDS: 0.9 % SODIUM CHLORIDE 1000ML 1,000 ML IV PRN ×2 (05:40→15:25)
[2018-03-23] MEDS: LEVOTHYROXINE SODIUM 125 MCG TABLET PO SCH (06:40)
[2018-03-23] MEDS: CIPROFLOXACIN LACTATE/D5W 400 MG/200 ML BAG IVPB SCH ×2 (07:39→20:14)
[2018-03-23] MEDS: ACETAMINOPHEN 500 MG TABLET PO PRN ×3 (07:48→22:20)
--- NOTE | 2018-03-23 08:51 | History & Physical ---
History of Present Illness - Date of Service Date of Service for History & Physical: 03/23/18 - History of Present Illness Admitting Diagnosis: Colitis. Elevated Troponin. Hypokalemia. CRF. Nausea/ vomiting History of Present Illness: Ms. Dawkins is a 77 year-old female who presented to the ED on for evaluation of nausea, vomiting, and loose stools for the past 2-3 weeks, worse over the past 1 week. 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 Patient is s/p bette, partial bowel resection for colon cancer/SBO, and hysterectomy. Patient reports numerous previous episodes of similar symptoms, etiology is not known to the patient. Patient reports recent admission to [facility] for similar symptoms but does not recall when she was last discharged. Her history includes: Ex-smoker , abnormal heart rhythm, cath, HTN, neuropathy, gastric cancer, intestinal CA, renal failure, DM, hypothyroid, breast and colon cancer, bowel resection, and cholecystectomy. In the ED, her vitals were: BP 151/85, HR 81, RR 16, 98% on room air, and T 97.7F. Her EKG showed NSR, rate 85, PVCs present, normal axis, normal intervals , ST-T wave changes present in leads I, II, AVF, V4-V6, changes are new from EKG on 02/08. Labs revealed Hgb 10.7 (improved from previous), K 3.0, GFr 20 ( baseline) and hepatic panel pending. Troponin indeterminate at 0.029 (previous was 0.015). ASA was administered. CT abd and pelvis demonstrated colitis of transverse-descending sigmoid colon and mild ascites. Pt. was admitted for IV antibiotics for colitis and serial troponins- pt. and her family notified that transfer will be considered if troponin continues to increase. 03/23/18 0820: Pt. is resting in bed. She denies pain and nausea at this time. Her troponin at 0500 was 0.031 (still in indeterminate range), if next level continues to trend up, will likely transfer to [facility] for further evaluation. UA in ED was positive for mod leuks, WBC tntc and 2+ bacteria- specimen was sent for culture. Plan to continue flagyl 500mg IV q8h, cipro 400mg IV q12h. Continue full liquid diet. Will replace K+ and recheck 2 hours after infusion. PCP: Dr. Coker GI: Dr. Iniguez Oncology: Dr. Hoffmann Travel Screening - Travel/Exposure Within Last 30 Days Have you traveled within the last 30 days?: No - Travel/Exposure Within Last Year Have you traveled outside the [place] in the last year?: No - Additonal Travel Details Have you been exposed to anyone with a communicable illness?: No - Travel Symptoms Symptom Screening: None Review of Systems Constitutional: Reports: Malaise. Denies: Chills, Fever, Night sweats Eyes: Denies: Eye discharge, Eye pain ENT: Denies: Congestion, Ear pain, Epistaxis Respiratory: Denies: Cough, Dyspnea Cardiovascular: Denies: Chest pain, Dyspnea on exertion Endocrine: Denies: Fatigue, Heat or cold intolerance Gastrointestinal: Reports: Diarrhea, Nausea, Vomiting Genitourinary: Denies: Incontinence, Retention Musculoskeletal: Denies: Arthralgia, Back pain Skin: Denies: Bruising, Change in color Neurological: Denies: Abnormal gait, Confusion, Headache Psychiatric: Denies: Anxiety Hematological/Lymphatic: Denies: Anemia, Blood Clots Past Medical History - SOCIAL HISTORY Smoking Status: Former smoker Alcohol Use: None Drug Use: None - RESPIRATORY Hx Respiratory Disorders: No - CARDIOVASCULAR Hx Cardio Disorders: Yes Hx Abnormal EKG: Yes (Regularly irregular) Hx Cardiac Cath: Yes Hx Hypertension: Yes - NEURO Hx Neuro Disorders: Yes Hx Neuropathy: Yes - GI Hx GI Disorders: Yes Hx Abdominal Pain: (Gallstones) Hx Nausea/Vomiting: Yes Hx Obstructive Bowel: Yes ("waited through 3 episodes since i was here last time ") Comment:: Diarrhea from the bowel surgery. Hx of instestinal CA. 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) Hx Chemotherapy: Yes (07/19/2017) Hx Radiation Therapy: Yes Hx Blood Transfusions: Yes Family Medical History Any Significant Family History?: Yes Hx Heart Disease: Father, Mother, Brother/Sister, Grandparents Hx HTN: Children H&P Meds/Allergies - Allergies Allergies: Allergies Allergy/AdvReac Type Severity Reaction Status Date / Time morphine Allergy Severe ALTERED Verified 02/28/18 14:23 MENTAL STATUS gabapentin Allergy HYPERSENSIT Verified 02/28/18 14:23 IVITY clindamycin HCl AdvReac Intermediate NAUSEA AND Verified 02/28/18 14:23 [From CLEOCIN] VOMITING cyclobenzaprine HCl AdvReac Intermediate DIZZINESS Verified 02/28/18 14:23 [From FLEXERIL] - Home Medications Home Medications Medication Instructions Recorded Confirmed Last Taken Acetaminophen [Tylenol 500Mg Tab] 1,000 mg PO Q6H 03/22/18 03/22/18 03/22/18 Ascorbic Acid [Vitamin C] 500 mg PO DAILY 03/22/18 03/22/18 03/22/18 Cranberry 400 mg PO DAILY 03/22/18 03/22/18 03/22/18 Levothyroxine Sodium [Synthroid] 125 mcg PO DAILY 03/22/18 03/22/18 03/22/18 Multivitamin [Daily Multiple 1 each PO DAILY 03/22/18 03/22/18 03/22/18 Vitamin] Previous Rx's Medication Instructions Recorded Loperamide HCl [Immodium] 2 mg PO Q4H PRN #30 capsule 03/03/18 - Active Medications Active Medications: Current Medications Acetaminophen (Tylenol 500mg Tab) 500 mg PO Q6H PRN PRN Reason: PAIN - MILD(1-4)/FEVER Last Admin: 03/23/18 07:48 Dose: 500 mg Sodium Chloride () 1,000 mls @ 100 mls/hr IV .Q10H PRN PRN Reason: LARGE VOLUME IV Last Admin: 03/23/18 05:40 Dose: 100 mls/hr Ciprofloxacin Lactate (Cipro) 400 mg in 200 mls @ 200 mls/hr IVPB Q12H YANI Stop: 03/28/18 08:01 Last Admin: 03/23/18 07:39 Dose: 200 mls/hr Metronidazole/Sodium Chloride (Flagyl) 500 mg in 100 mls @ 100 mls/hr IVPB Q8H YANI Stop: 03/28/18 04:01 Last Infusion: 03/23/18 06:38 Dose: Infused Levothyroxine Sodium (Synthroid) 125 mcg PO DAILYTHY [facility] Last Admin: 03/23/18 06:40 Dose: Not Given Physical Exam - Vital Signs Vital Signs: Vital Signs - Last 24 Hrs Temp Pulse Pulse Resp BP BP Pulse Ox 03/23/18 08:24 20 03/23/18 08:00 97.9 F 64 18 153/100 99 03/22/18 22:10 97.5 F L 84 18 180/84 100 03/22/18 21:53 93 L 03/22/18 21:49 93 H 20 108/58 89 L 03/22/18 20:35 92 H 12 133/93 89 L 03/22/18 18:27 97.7 F 81 16 151/85 98 - General General Appearance: Alert, Oriented x3, Cooperative, No acute distress, Other ( Bilious emesis is present on the patient's clothing.) Limitations: No limitations - Head Head exam: Atraumatic, Normocephalic, Normal inspection Head exam detail: negative: Abrasion, Contusion, Owens's sign, General tenderness, Hematoma, Laceration - Eye Eye exam: Normal appearance. negative: Conjunctival injection, Periorbital swelling, Periorbital tenderness, Scleral icterus - ENT Ear exam: negative: Auricular hematoma, Auricular trauma Nasal Exam: negative: Active bleeding, Discharge, Dried blood, Foreign body Mouth exam: negative: Drooling, Laceration, Muffled voice, Tongue elevation Teeth exam: Other (Adentulous) - Neck Neck exam: Normal inspection. negative: Meningismus, Tenderness - Respiratory Respiratory exam: Normal lung sounds bilaterally. negative: Respiratory distress, Rhonchi, Stridor, Wheezes - Cardiovascular Cardiovascular Exam: Regular rate, Normal heart sounds, Irregular rhythm - GI/Abdominal GI/Abdominal exam: Soft, Normal bowel sounds, Tenderness (TTP epigastric region on examination.). negative: Rebound, Rigid - Rectal Rectal exam: Deferred - exam: Deferred - Extremities Extremities exam: Normal inspection. negative: Calf tenderness, Pedal edema, Tenderness - Back Back exam: Denies: CVA tenderness (R), CVA tenderness (L) - Neurological Neurological exam: Alert, Oriented X3 - Psychiatric Psychiatric exam: Normal affect, Normal mood - Skin Skin exam: Normal color. negative: Abrasion Type of lesion: negative: abrasion Results - Labs Result Diagrams: 03/22/18 19:17 03/22/18 19:17 Labs Last 24 Hours: Laboratory Results - last 24 hr 03/22/18 03/22/18 03/22/18 19:17 19:17 19:17 WBC 7.4 RBC 3.24 L Hgb 10.7 L Hct 33.8 L MCV 104.3 H MCH 33.0 MCHC 31.7 L RDW 13.8 Plt Count 224 MPV 9.9 Neutrophils % 76.0 Band Neutrophils % 2.0 Eosinophils % Not Reportable Basophils % Not Reportable Lymphocytes 13.0 L Monocytes 6.0 Metamyelocytes 1.0 Platelet Estimate Normal RBC Morphology Normal Eosinophil Count 2.0 Sodium 140 Potassium 3.0 L Chloride 97 L Carbon Dioxide 25.0 Anion Gap 18.0 H BUN 58 H Creatinine 2.5 H Estimated GFR 20 Random Glucose 99 Calcium 10.0 Total Bilirubin 0.30 AST 40 H ALT 18 Alkaline Phosphatase 115 H Troponin T Total Protein 8.2 Albumin 3.3 L Globulin 4.9 H Albumin/Globulin Ratio 0.7 L Lipase 21 Urine Color Urine Appearance Urine pH Ur Specific Warren Urine Protein Urine Glucose (UA) Urine Ketones Urine Blood Urine Nitrite Urine Bilirubin Urine Urobilinogen Ur Leukocyte Esterase Urine RBC Urine WBC Ur Epithelial Cells Urine Bacteria 03/22/18 03/22/18 03/23/18 19:17 20:40 05:00 WBC RBC Hgb Hct MCV MCH MCHC RDW Plt Count MPV Neutrophils % Band Neutrophils % Eosinophils % Basophils % Lymphocytes Monocytes Metamyelocytes Platelet Estimate RBC Morphology Eosinophil Count Sodium Potassium Chloride Carbon Dioxide Anion Gap BUN Creatinine Estimated GFR Random Glucose Calcium Total Bilirubin AST ALT Alkaline Phosphatase Troponin T 0.029 H 0.031 H Total Protein Albumin Globulin Albumin/Globulin Ratio Lipase Urine Color Yellow Urine Appearance Clear Urine pH 5.5 Ur Specific Warren 1.025 Urine Protein Trace H Urine Glucose (UA) Negative Urine Ketones Negative Urine Blood Trace-i Urine Nitrite Negative Urine Bilirubin Negative Urine Urobilinogen 0.2 Ur Leukocyte Esterase Moderate H Urine RBC 0 - 2 Urine WBC Too numerous to cnt Ur Epithelial Cells None seen Urine Bacteria 2+ - Imaging and Cardiology CT scan - abdomen Status: Pending (colotis of transverse-descending sigmoid colon) VTE H&P Assessment - Risk for VTE Risk for VTE: Yes Risk Level: High Risk Assessment Date: 03/23/18 Risk Assessment Time: 08:52 VTE Orders Placed or Will Be Placed: Yes Plan - Inpatient Certification Inpatient Certification: Admit to inpatient care: Based on my medical assessment, after consideration of patient's risk factors (age, co-morbidities and patient presenting symptoms and acuity), I expect that this patient will remain in the hospital greater than or equal to two midnights and that the services needed warrant inpatient care because: Patient Risk Factors: [Age, co-morbities] Estimated length of stay: [48-96 hours] The patient may reasonably be expected to be discharged or transferred to a hospital within 96 hours after admission to [facility]. Services needed: [IV antibiotics, telemetry monitoring, lab monitoring] Post hospital care (if known): [] I certify that my determination is in accordance with my understanding of Medicare requirements for reasonable and necessary inpatient services. 03/23/18 09:06 - Detailed Diagnosis and Plan (1) Colitis Current Visit: Yes Status: Acute Base Code: K52.9 - NONINFECTIVE GASTROENTERITIS AND COLITIS, UNSPECIFIED Comment: 03/23/18: -Colitis on abd/pelvis CT, descending-transverse sigmoid colon -Treating with flagyl 500mg q8h IV and cipro 400mg IV q12h -Full liquid diet (2) Elevated troponin level Current Visit: Yes Status: Acute Base Code: R74.8 - ABNORMAL LEVELS OF OTHER SERUM ENZYMES Comment: 03/23/18: -Troponin in ED was 0.029, 0500 was 0.031 -Will consider transfer if trend continues to increase -NSR with PVCs on tele -Pt. is a DNR (3) CRF (chronic renal failure) Current Visit: Yes Status: Acute Qualifiers: Chronic kidney disease stage: stage 5 Qualified Code(s): N18.5 - Chronic kidney disease, stage 5 Base Code: N18.9 - CHRONIC KIDNEY DISEASE, UNSPECIFIED Comment: 03/23/18: -poor PO intake due to gastric carcinoma -BUN/Cr: 58/2.5 -Continue IVF, NS at 100/hr, avoid nephrotoxins -repeat labs ordered for 1300 (4) Hypokalemia Current Visit: Yes Status: Acute Base Code: E87.6 - HYPOKALEMIA Comment: 03/23/18: - as a result of poor Po intake and GI losses. - K+ 3.0 on admission, replaced with 40mEq IV in NS in ED, infusion completed this morning, will recheck CMP at 1300 (5) Urinary tract infection Current Visit: No Status: Acute Qualifiers: Urinary tract infection type: site unspecified Hematuria presence: with hematuria Qualified Code(s): N39.0 - Urinary tract infection, site not specified; R31.9 - Hematuria, unspecified; R31.9 - Hematuria, unspecified Base Code: N39.0 - URINARY TRACT INFECTION, SITE NOT SPECIFIED Comment: : -UA in ED demonstrated positive leuks, WBCs TNTC, +2 bacteria, sent for culture -Pt. 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 receives chemo injections into stomach q28 days at [facility] (7) At risk for deep venous thrombosis Current Visit: Yes Status: Acute Base Code: Z91.89 - OTH PERSONAL RISK FACTORS, NOT ELSEWHERE CLASSIFIED Comment: 03/23/18: -High risk for DVT due to malignancy -Lovenox 40mg SC ordered for prophylaxis (8) DNR (do not resuscitate) Current Visit: No Status: Acute Base Code: Z66 - DO NOT RESUSCITATE Comment: 03/23/18: -Pt. is a DNR (discussed code status with patient this morning)
[2018-03-23] MEDS ORDERED: POTASSIUM CHL 20MEQ IN 1L NS 20 MEQ/1,000 ML BAG IV ONE (08:56)
[2018-03-23 13:30] LABS: HEMATOCRIT 29.4 % (35.0-47.0); HEMOGLOBIN 8.9 gm/dl (11.6-16.0); MEAN CELL VOLUME 107.7 fl (81-97); MEAN CORPUSCULAR HEMOGLOBIN 32.6 pg (27-33); MEAN CORPUSCULAR HGB CONC 30.3 g/dl (32-36); MEAN PLATELET VOLUME 10.4 fl (7.4-10.4); PLATELET COUNT 183 K/uL (130-400); RED BLOOD COUNT 2.73 M/uL (3.80-5.40); RED CELL DISTRIBUTION WIDTH 13.9 % (11.5-14.5); WHITE BLOOD COUNT W/O DIFF 7.6 K/uL (4.2-12.2)
[2018-03-23 13:42] LABS: INR 1.1; PROTHROMBIN TIME (PATIENT) 11.5 SECONDS (9.5-12.1)
[2018-03-23 13:46] LABS: ALB/GLOB RATIO 0.7 (1.1-1.8); ALBUMIN 2.8 g/dL (4.0-5.0); BILIRUBIN,TOTAL 0.2 mg/dL (0.2-1.0); CREATININE 2.2 mg/dL (0.5-0.9); TOTAL PROTEIN 6.7 g/dL (6.6-8.7)
[2018-03-23] MEDS: LIDOCAINE 5% PATCH TOP SCH (16:11)
[2018-03-23] MEDS ORDERED: ENOXAPARIN 40 MG/0.4 ML SYR SQ SCH (22:00)
[2018-03-23] MEDS: ENOXAPARIN 30 MG/0.3 ML SYR SQ SCH (22:20)
[2018-03-24] MEDS ORDERED: KETOROLAC 30 MG/ML VIAL IVP ONE (02:39)
[2018-03-24] MEDS: HYDROCODONE/APAP 5/325MG TABLET PO PRN ×2 (02:54→06:45)
[2018-03-24] MEDS: METRONIDAZOLE IVPB 500 MG/100 ML BAG IVPB SCH ×3 (04:47→22:43)
[2018-03-24] MEDS: 0.9 % SODIUM CHLORIDE 1000ML 1,000 ML IV PRN (04:48)
[2018-03-24] MEDS: LEVOTHYROXINE SODIUM 125 MCG TABLET PO SCH (06:42)
[2018-03-24 06:48] LABS: HEMATOCRIT 30.2 % (35.0-47.0); HEMOGLOBIN 9.1 gm/dl (11.6-16.0); MEAN CELL VOLUME 106.7 fl (81-97); MEAN CORPUSCULAR HGB CONC 30.1 g/dl (32-36); MEAN PLATELET VOLUME 9.6 fl (7.4-10.4); PLATELET COUNT 176 K/uL (130-400); RED BLOOD COUNT 2.83 M/uL (3.80-5.40); RED CELL DISTRIBUTION WIDTH 13.9 % (11.5-14.5)
[2018-03-24 07:00] LABS: MEAN CORPUSCULAR HEMOGLOBIN 32.1 pg (27-33)
[2018-03-24 07:06] LABS: ALB/GLOB RATIO 0.6 (1.1-1.8); ALBUMIN 2.6 g/dL (4.0-5.0); BILIRUBIN,TOTAL 0.3 mg/dL (0.2-1.0); CREATININE 1.8 mg/dL (0.5-0.9); TOTAL PROTEIN 6.7 g/dL (6.6-8.7)
[2018-03-24 07:16] LABS: ANISOCYTOSIS 1+; PLATELET ESTIMATE NORMAL (NORMAL)
[2018-03-24] MEDS: CIPROFLOXACIN LACTATE/D5W 400 MG/200 ML BAG IVPB SCH ×2 (07:17→21:19)
--- NOTE | 2018-03-24 07:26 | CT SCAN REPORT ---
EXAM: CT SCAN OF THE ABDOMEN AND PELVIS WITHOUT CONTRAST HISTORY: ABDOMINAL PAIN AND RIGHT LOWER QUADRANT TENDERNESS. NAUSEA, VOMITING , AND DIARRHEA. TECHNIQUE: Standard CT imaging of the abdomen and pelvis was performed without contrast. Comparison: 09/21/17. FINDINGS: There is mild atelectasis at the right lung base. Mild chronic appearing interstitial changes are also present at both lung bases. The liver is normal. The gallbladder is surgically absent. There is no biliary ductal dilatation. The pancreas appears mildly atrophic. There are no pancreatic inflammatory changes. The spleen is normal. There is mild fullness of the left adrenal gland which is unchanged. There is no urinary tract calculus or obstructive uropathy. The kidneys appear normal in size. Atherosclerotic changes are present within the aorta. There is no aneurysm. There is no retroperitoneal lymphadenopathy. Post surgical changes are present within large and small bowel loops consistent with previous bowel resection. There is a small amount of hyperdense material within the region of the hepatic flexure of the colon. This likely represents some ingested material. There is mild wall thickening of the colon from the transverse through the distal sigmoid regions. This has the appearance of developing colitis. There are a few scattered diverticula, however, this does have the appearance of diverticulitis. There is a tiny amount of free fluid within the pelvis. There is no obstruction or pneumoperitoneum. The urinary bladder is normal. The uterus is surgically absent. There are no acute osseous abnormalities. Degenerative changes are present within the spine. IMPRESSION: 1. WALL THICKENING OF THE COLON FROM THE TRANSVERSE THROUGH THE DISTAL SIGMOID REGIONS CONSISTENT WITH DEVELOPING COLITIS. 2. MINOR ASCITES. 3. STABLE POST SURGICAL CHANGES. 4. ADDITIONAL STABLE CHRONIC FINDINGS ABOVE. JOB NUMBER: [id number] [facility]
[2018-03-24] MEDS: LIDOCAINE 5% PATCH TOP SCH (09:52)
[2018-03-24] MEDS ORDERED: LISINOPRIL 10 MG TABLET PO ONE (14:39)
[2018-03-24] MEDS ORDERED: HEPARIN SODIUM FLUSH 100 UNITS/ML SYR 5ML IVP ONE (14:44)
[2018-03-24] MEDS ORDERED: HYDRALAZINE 20MG/ML VIAL IV ONE ×2 (14:49→22:40)
--- NOTE | 2018-03-24 14:57 | Physician Progress Note ---
Subjective - Date Date of Physician Progress Note: 03/24/18 - Subjective Subjective Comment: Pt. is currently resting in bed. She states that her pain is currently under control. She normally only uses tylenol at home. Lidoderm patch and norco 5- 325 was ordered last evening for worsening pain. Stool specimen was sent for c diff today- pending. BP has been elevated- 176/70 at 0800. Hydralazine 20mg IV ordered. IV saline locked. Will continue to monitor for signs/symptoms of possible fluid overload. If cough worsens, will consider chest xray. CBC and CMP ordered for tomorrow morning. Pt. has appt with her oncologist on 04/02 with an EGD prior- pt. states that if no improvement or if worsening of cancer, she is considering comfort care. Objective - Vital Signs Vital Signs: Vital Signs - Last 24 Hrs Temp Pulse Resp BP Pulse Ox 03/24/18 09:00 20 03/24/18 08:00 98.0 F 64 18 176/70 97 03/23/18 20:00 97.7 F 68 16 165/64 97 03/23/18 17:25 98.8 F 68 18 131/64 96 03/23/18 15:12 16 97 03/23/18 14:52 16 100 - General General Appearance: Alert, Oriented x3, Cooperative, No acute distress, Other ( Bilious emesis is present on the patient's clothing.) Limitations: No limitations - Head Head exam: Atraumatic, Normocephalic, Normal inspection Head exam detail: negative: Abrasion, Contusion, Owens's sign, General tenderness, Hematoma, Laceration - Eye Eye exam: Normal appearance. negative: Conjunctival injection, Periorbital swelling, Periorbital tenderness, Scleral icterus - ENT Ear exam: negative: Auricular hematoma, Auricular trauma Nasal Exam: negative: Active bleeding, Discharge, Dried blood, Foreign body Mouth exam: negative: Drooling, Laceration, Muffled voice, Tongue elevation Teeth exam: Other (Adentulous) - Neck Neck exam: Normal inspection. negative: Meningismus, Tenderness - Respiratory Respiratory exam: Normal lung sounds bilaterally. negative: Respiratory distress, Rhonchi, Stridor, Wheezes - Cardiovascular Cardiovascular Exam: Regular rate, Normal heart sounds, Irregular rhythm - GI/Abdominal GI/Abdominal exam: Soft, Normal bowel sounds, Tenderness (TTP epigastric region on examination.). negative: Rebound, Rigid - Rectal Rectal exam: Deferred - exam: Deferred - Extremities Extremities exam: Normal inspection. negative: Calf tenderness, Pedal edema, Tenderness - Back Back exam: Denies: CVA tenderness (R), CVA tenderness (L) - Neurological Neurological exam: Alert, Oriented X3 - Psychiatric Psychiatric exam: Normal affect, Normal mood - Skin Skin exam: Normal color. negative: Abrasion Type of lesion: negative: abrasion Assessment and Plan - Assessment and Plan (1) Colitis Current Visit: Yes Status: Acute Base Code: K52.9 - NONINFECTIVE GASTROENTERITIS AND COLITIS, UNSPECIFIED Comment: 03/24/18: -Colitis on abd/pelvis CT, descending-transverse sigmoid colon -Treating with flagyl 500mg q8h IV and cipro 400mg IV q12h -Full liquid diet -stool specimen sent for c diff (2) Elevated troponin level Current Visit: Yes Status: Acute Base Code: R74.8 - ABNORMAL LEVELS OF OTHER SERUM ENZYMES Comment: 03/24/18: -Resolved -Troponin in ED was 0.029, 0500 was 0.031, decreased to 0.028 at 1300 -Pt. remained in NSR with PVCs on tele, tele now d/c'd -Pt. is a DNR (3) CRF (chronic renal failure) Current Visit: Yes Status: Acute Qualifiers: Chronic kidney disease stage: stage 5 Qualified Code(s): N18.5 - Chronic kidney disease, stage 5 Base Code: N18.9 - CHRONIC KIDNEY DISEASE, UNSPECIFIED Comment: 03/24/18: -poor PO intake due to gastric carcinoma -BUN/Cr: 38/1.8 -Pt. is tolerating full liquid diet- IV saline locked, avoid nephrotoxins -repeat labs ordered for tomorrow morning (4) Hypokalemia Current Visit: Yes Status: Acute Base Code: E87.6 - HYPOKALEMIA Comment: 03/24/18: - as a result of poor Po intake and GI losses. - K+ 3.0 on admission, replaced with 40mEq IV in NS in ED, K this morning was 3.3 (5) Urinary tract infection Current Visit: No Status: Acute Qualifiers: Urinary tract infection type: site unspecified Hematuria presence: with hematuria Qualified Code(s): N39.0 - Urinary tract infection, site not specified; R31.9 - Hematuria, unspecified; R31.9 - Hematuria, unspecified Base Code: N39.0 - URINARY TRACT INFECTION, SITE NOT SPECIFIED Comment: : -UA in ED demonstrated positive leuks, WBCs TNTC, +2 bacteria, sent for culture -Pt. 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 receives chemo injections into stomach q28 days at [facility] -Pt. has f/u with her oncologist on 04/02- EGD to be done prior to her appt. (7) At risk for deep venous thrombosis Current Visit: Yes Status: Acute Base Code: Z91.89 - OTH PERSONAL RISK FACTORS, NOT ELSEWHERE CLASSIFIED Comment: 03/24/18: -High risk for DVT due to malignancy -Lovenox 30mg SC ordered for prophylaxis (30mg per pharmacy because of CrCl) (8) DNR (do not resuscitate) Current Visit: No Status: Acute Base Code: Z66 - DO NOT RESUSCITATE Comment: 03/24/18: -Pt. is a DNR (discussed code status with patient this morning) Results - Labs Result Diagrams: 03/24/18 06:40 03/24/18 06:40 Labs Last 24 Hours: Laboratory Results - last 24 hr 03/24/18 03/24/18 06:40 06:40 WBC 8.0 RBC 2.83 L Hgb 9.1 L Hct 30.2 L MCV 106.7 H MCH 32.1 MCHC 30.1 L RDW 13.9 Plt Count 176 MPV 9.6 Neutrophils % 83.0 H Band Neutrophils % 3.0 Eosinophils % Not Reportable Basophils % Not Reportable Lymphocytes 6.0 L Monocytes 2.0 Platelet Estimate Normal Anisocytosis 1+ Macrocytosis 1+ Eosinophil Count 4.0 Sodium 141 Potassium 3.3 L Chloride 109 H Carbon Dioxide 20.0 L Anion Gap 12.0 BUN 38 H Creatinine 1.8 H Estimated GFR 29 Random Glucose 107 Calcium 8.1 L Total Bilirubin 0.30 AST 34 ALT 14 Alkaline Phosphatase 102 Total Protein 6.7 Albumin 2.6 L Globulin 4.1 Albumin/Globulin Ratio 0.6 L DVT/PE Assessment - Risk for VTE Risk for VTE: No Risk Level: High Risk Assessment Date: 03/23/18 Risk Assessment Time: 08:52 VTE Orders Placed or Will Be Placed: Yes - Active Medicaitons Current Medications: Current Medications Acetaminophen (Tylenol 500mg Tab) 1,000 mg PO Q6H PRN PRN Reason: PAIN - MILD (1-4) Last Admin: 03/23/18 22:20 Dose: 1,000 mg Hydrocodone Bitart/Acetaminophen ([place] 5mg/325mg) 1 each PO Q4H PRN PRN Reason: PAIN - MOD TO SEVERE (5-10) Last Admin: 03/24/18 06:45 Dose: 1 each Enoxaparin Sodium (Lovenox) 30 mg SQ QHS [facility] Last Admin: 03/23/18 22:20 Dose: 30 mg Ciprofloxacin Lactate (Cipro) 400 mg in 200 mls @ 200 mls/hr IVPB Q12H YANI Stop: 03/28/18 08:01 Last Infusion: 03/24/18 08:15 Dose: Infused Metronidazole/Sodium Chloride (Flagyl) 500 mg in 100 mls @ 100 mls/hr IVPB Q8H YANI Stop: 03/29/18 13:01 Last Infusion: 03/24/18 14:05 Dose: Infused Levothyroxine Sodium (Synthroid) 125 mcg PO DAILYTHY [facility] Last Admin: 03/24/18 06:42 Dose: 125 mcg Lidocaine (Lidoderm) 1 each TOP DAILY [facility] Last Admin: 03/24/18 09:52 Dose: 1 each Lisinopril (Zestril) 10 mg PO NOW ONE Stop: 03/24/18 14:40 Miscellaneous (Remove Patch) 1 each TD QHS [facility] AMI Plan - Labs Result Diagrams: 03/24/18 06:40 03/24/18 06:40
[2018-03-24] MEDS ORDERED: HYDRALAZINE HCL 25 MG TABLET PO ONE (15:00)
[2018-03-24] MEDS: ACETAMINOPHEN 500 MG TABLET PO PRN (21:18)
[2018-03-24] MEDS: ENOXAPARIN 30 MG/0.3 ML SYR SQ SCH (21:19)
[2018-03-24] MEDS: REMOVE PATCH 1 EACH MISC TD SCH (23:00)
[2018-03-25] MEDS: METRONIDAZOLE IVPB 500 MG/100 ML BAG IVPB SCH (05:40)
[2018-03-25] MEDS: LEVOTHYROXINE SODIUM 125 MCG TABLET PO SCH (06:21)
[2018-03-25 07:03] LABS: HEMOGLOBIN 9.1 gm/dl (11.6-16.0); MEAN CELL VOLUME 105.6 fl (81-97); MEAN CORPUSCULAR HGB CONC 30.3 g/dl (32-36); MEAN PLATELET VOLUME 9.4 fl (7.4-10.4); PLATELET COUNT 181 K/uL (130-400); RED BLOOD COUNT 2.84 M/uL (3.80-5.40); RED CELL DISTRIBUTION WIDTH 14.1 % (11.5-14.5)
[2018-03-25 07:26] LABS: ALB/GLOB RATIO 0.6 (1.1-1.8); ALBUMIN 2.5 g/dL (4.0-5.0); BILIRUBIN,TOTAL 0.3 mg/dL (0.2-1.0); CREATININE 1.7 mg/dL (0.5-0.9); TOTAL PROTEIN 6.6 g/dL (6.6-8.7)
[2018-03-25] MEDS ORDERED: ZINC OXIDE 28.35 GM TUBE TOP ONE (07:30)
[2018-03-25] MEDS: CIPROFLOXACIN LACTATE/D5W 400 MG/200 ML BAG IVPB SCH (08:41)
[2018-03-25] MEDS: LIDOCAINE 5% PATCH TOP SCH (09:59)
[2018-03-25] MEDS ORDERED: ONDANSETRON 4 MG ODT TABLET SL PRN (12:31)
[2018-03-25] MEDS ORDERED: POTASSIUM CHLORIDE 20 MEQ TABLET PO ONE (12:40)
[2018-03-25] MEDS: METRONIDAZOLE 250 MG TABLET PO SCH ×2 (13:32→21:43)
[2018-03-25] MEDS: CIPROFLOXACIN HCL 500 MG TABLET PO SCH (21:43)
[2018-03-25] MEDS: ENOXAPARIN 30 MG/0.3 ML SYR SQ SCH (21:43)
[2018-03-25] MEDS: REMOVE PATCH 1 EACH MISC TD SCH (22:05)
[2018-03-26] MEDS: LEVOTHYROXINE SODIUM 125 MCG TABLET PO SCH (06:11)
[2018-03-26] MEDS: METRONIDAZOLE 250 MG TABLET PO SCH ×4 (06:11→22:21)
--- NOTE | 2018-03-26 14:49 | Rehab Evaluation ---
Patient Information - Patient Information Diagnosis: colitis,hypokalemia Ordered Treatment: PT Evaluate and Treat Status: Initial Evaluation Past Medical/Surgical Hx: PAST MEDICAL/SURGICAL HISTORY Past Surgical History Ramon kidneys "tapped."; D&C's, Nephroscopy Bowel resection. right breast lumpectomy. Ramon carpal tunnel. Hysterectomy. [place] tooth. several d&c's cholecystectomy colon bypass implanted port in chest PMH - Respiratory Hx Respiratory Disorders No PMH - Cardiovascular Hx Cardiovascular Disorders Yes Hx Abnormal EKG Yes: Regularly irregular Hx Cardiac Catheterization Yes Hx Edema Yes Hx Hypertension Yes Hx Irregular Heartbeat Yes PMH - Neuro Hx Neurological Disorders Yes Hx Headaches Yes Hx Neuropathy Yes PMH - GI Hx Gastrointestinal Disorders Yes Hx Abdominal Pain Gallstones Hx Diverticulitis Yes Hx Nausea/Vomiting Yes Hx Obstructive Bowel Yes: "waited through 3 episodes since i was here last time" Hx Ulcer Yes Comment: Diarrhea from the bowel surgery. Hx of instestinal CA. PMH - Hx Genitourinary Disorders Yes Hx Age of Menopause 50 Patient No Hx Bladder Problem Yes Hx Dialysis Yes Hx Renal Disease Yes: chronic stage 3 Hx Urinary Tract Infection Yes Comment: Stents in ureters and removed per pt. PMH - Endocrine Hx Endocrine Disorders Yes Hx Diabetes Yes: diet controlled Hx Thyroid Disease Yes: low PMH - Musculoskeletal Hx Musculoskeletal Disorders Yes Hx Arthritis Yes Hx Back Injury Yes: "I cracked my tailbone a couple times." Hx Gout Yes Hx Osteoporosis Yes PMH - Psych Hx Psychiatric Problems No PMH - Hematology/Oncology Hx Hematology/Oncology Yes Disorders Hx Anemia Yes Hx Cancer Yes: large intestine, breast 2-3 yrs ago Hx Chemotherapy Yes: 07/19/2017 Hx Radiation Therapy Yes Hx Blood Transfusion Reaction No Premorbid Status: Detail (Per patient's son the patient was ambulating limited distances and was primarily using a wheelchair.) Social History: Detail (The patient lives with son in a one story house with a basement with 1 step to get in with no railing and one step into living room. The patient's bathrooom is equipped with a tub/shower combination with a tub seat with a transfer bench and grab bars; toilet with riser seat and handles. The patient has a wheelchair, commode, lift chair, standard walking and a walker with 4 wheels.) Precautions: [place], Fall - Time With Patient Total Time Spent With Patient (Min): 25 Treatment Procedures: Detail (Initial evaluation) Subjective Information - Subjective Information Per Patient (The patient had no complaints of pain. The patient did complain of weakness and didn't want to get up since she had just returned to bed after using the commode.) Objective Data - Mental Status Patient Orientation: Oriented x3 - Visual Perception Appears within normal limits for therapeutic activities - ROM Not within normal limits (The patient had limited L hip flexion to 70 degrees, hip rotation was also moderately limited, L ankle dorsiflexion was limited to neutral. All other LE AROM was WNL.) - Strength/Tone Not within normal limits (The patient's LE strength is as follows: bilateral hip flexion 3+/5, hip abduction R 3+/5, L 4-/5, hip adduction R 3+/5, L 4-/5, knee flexors R 3+/5, L 4-/5, knee extensors R 4-/5, L4-/5, bilateral ankle musculature was 3+/5.) - Bed Mobility Needs Assist (Not assessed due to fatigue) - Transfers Needs Assist (Not assessed due to fatigue) - Gait Detail (Not assessed due to fatigue) - Special Tests Yes (Neuro: bilateral ankle clonus was elicited with quick stretch into dorsiflexion 2 beats. Increased L LE tone was noted in L hip flexors.) Therapy Assessment - Therapy Assessment Detail (The patient has increased LE weakness and decreased ability to complete prolonged physicla activity. PT was unable to complete a full evaluation due to fatigue level , however the patient would benefit from a Home PT evaluation to assess mobilty in home environment and instruct patient's son in a HEP of ROM / UE and LE strengthening exercises.) Problem List - Problem List Physical Therapy Problem List: Detail (1) Decreased endurance for physical activity 2) Decreased LE strength 3) Assistance with mobility) Goals - Goals Physical Therapy Goals: 1) Instruct family in HEP of UE and LE ROM and strengthening exercises. 2) Assess bed mobility, transfers and ambulation Plan - Plan Physical Therapy Plan: Patient to discharge to home tomorrow, Home PT is recommended.
--- NOTE | 2018-03-26 15:02 | Rehab Evaluation ---
Patient Information - Patient Information Diagnosis: colitis,hypokalemia, CRF Ordered Treatment: OT Evaluate and Treat Status: Initial Evaluation Surgery: No Past Medical/Surgical Hx: PAST MEDICAL/SURGICAL HISTORY Past Surgical History Ramon kidneys "tapped."; D&C's, Nephroscopy Bowel resection. right breast lumpectomy. Ramon carpal tunnel. Hysterectomy. [place] tooth. several d&c's cholecystectomy colon bypass implanted port in chest PMH - Respiratory Hx Respiratory Disorders No PMH - Cardiovascular Hx Cardiovascular Disorders Yes Hx Abnormal EKG Yes: Regularly irregular Hx Cardiac Catheterization Yes Hx Edema Yes Hx Hypertension Yes Hx Irregular Heartbeat Yes PMH - Neuro Hx Neurological Disorders Yes Hx Headaches Yes Hx Neuropathy Yes PMH - GI Hx Gastrointestinal Disorders Yes Hx Abdominal Pain Gallstones Hx Diverticulitis Yes Hx Nausea/Vomiting Yes Hx Obstructive Bowel Yes: "waited through 3 episodes since i was here last time" Hx Ulcer Yes Comment: Diarrhea from the bowel surgery. Hx of instestinal CA. PMH - Hx Genitourinary Disorders Yes Hx Age of Menopause 50 Patient No Hx Bladder Problem Yes Hx Dialysis Yes Hx Renal Disease Yes: chronic stage 3 Hx Urinary Tract Infection Yes Comment: Stents in ureters and removed per pt. PMH - Endocrine Hx Endocrine Disorders Yes Hx Diabetes Yes: diet controlled Hx Thyroid Disease Yes: low PMH - Musculoskeletal Hx Musculoskeletal Disorders Yes Hx Arthritis Yes Hx Back Injury Yes: "I cracked my tailbone a couple times." Hx Gout Yes Hx Osteoporosis Yes PMH - Psych Hx Psychiatric Problems No PMH - Hematology/Oncology Hx Hematology/Oncology Yes Disorders Hx Anemia Yes Hx Cancer Yes: large intestine, breast 2-3 yrs ago Hx Chemotherapy Yes: 07/19/2017 Hx Radiation Therapy Yes Hx Blood Transfusion Reaction No Premorbid Status: Detail (Per patient's son the patient was ambulating limited distances and was primarily using a wheelchair. He was assisting her with showering and dressing and he was responsible for all home mgmt, meal prep and laundry.) Social History: Detail (The patient lives with son in a one story house with a basement with 1 step to get in with no railing and one step into living room. The patient's bathrooom is equipped with a tub/shower combination with an extended tub bench and towel/grab bar and a standard height toilet with riser seat and handles. The patient has a wheelchair, commode, lift chair, standard walker and a 4 wheeled walker.) Precautions: [place], Fall - Time With Patient Total Time Spent With Patient (Min): 35 Treatment Procedures: Detail (OT eval low complexity) Subjective Information - Subjective Information Per Patient, Other (Per son and pt's cousin.) Objective Data - Pain Pain Present: No - Mental Status Patient Orientation: Oriented x3 - Visual Perception Appears within normal limits for therapeutic activities (Pt wears glasses.) - ROM Not within normal limits (Ramon shoulder flexion passively approx. 120 degrees, pt presents with poor active shoulder flexion. Ramon elbow, wrist and hand AROM functional although pt had some edema in hands which caused some stiffness in fingers.) - Strength/Tone Not within normal limits (Ramon shoulder flexion 2-/5, right biceps 4/5, right triceps 3+/5, right gristmiller 3+/5, left biceps 4/5, left triceps 4/5, left gristmiller 4/ 5. Pt presents with significant impairment in endurance.) - Coordination Appears within normal limits for therapeutic activities - ADL's/IADL's Detail (Pt reports she has been unable to perform any ADLs due to weakness.) Therapy Assessment - Therapy Assessment Detail (Unable to formally assess bed mobility, transfers, ambulation or ADLs due to significant pt fatigue. Pt presents with ramon UE weakness, decreased Ind with mobility and self cares.) Problem List - Problem List Occupational Therapy Problem List: Detail (1. Decreased Ind with self cares. 2. Decreased activity tolerance.) Goals - Goals Occupational Therapy Goals: 1. Pt will be Ind with grooming and hygiene while sitting at EOB. 2. Pt will demonstrate improved endurance to allow Ind with functional mobility needed to perform self cares. Prognosis - Prognosis Moderate Plan - Plan Occupational Therapy Plan: OT 2-4 times per week to address endurance, self cares, UE function and mobility.
[2018-03-26] MEDS: CIPROFLOXACIN HCL 500 MG TABLET PO SCH ×2 (15:58→21:17)
[2018-03-26] MEDS: POTASSIUM CHLORIDE 20 MEQ TABLET PO SCH (16:01)
[2018-03-26] MEDS: LIDOCAINE 5% PATCH TOP SCH (18:12)
[2018-03-26] MEDS: ENOXAPARIN 30 MG/0.3 ML SYR SQ SCH (21:19)
[2018-03-26] MEDS: REMOVE PATCH 1 EACH MISC TD SCH (22:22)
[2018-03-27] MEDS: METRONIDAZOLE 250 MG TABLET PO SCH (06:04)
[2018-03-27] MEDS: LEVOTHYROXINE SODIUM 125 MCG TABLET PO SCH (06:04)
--- NOTE | 2018-03-27 07:11 | Discharge Note ---
VTE H&P Assessment - Risk for VTE Risk for VTE: No Risk Level: High Risk Assessment Date: 03/23/18 Risk Assessment Time: 08:52 VTE Orders Placed or Will Be Placed: Yes Discharge Medications - Discharge Medications Prescriptions: Cephalexin [Keflex] 500 mg PO Q6H #30 capsule Hydrocodone/APAP 5/325Mg [[place] 5Mg/325Mg] 1 each PO Q4H PRN #14 tab PRN Reason: Pain - Mod To Severe (5-10) Lidocaine Patch [Lidoderm] 1 each TOP DAILY #30 patch Nitrofurantoin [place] [Macrobid] 100 mg PO BID #20 capsule Ondansetron [Zofran Odt] 4 mg SL Q6H PRN #20 tab.rapdis PRN Reason: Nausea/Vomiting Home Medications: Ambulatory Orders Loperamide HCl [Immodium] 2 mg PO Q4H PRN #30 capsule 03/03/18 [Last Taken Unknown] Acetaminophen [Tylenol 500Mg Tab] 1,000 mg PO Q6H 03/22/18 [Last Taken 03/22/18] Ascorbic Acid [Vitamin C] 500 mg PO DAILY 03/22/18 [Last Taken 03/22/18] Cranberry 400 mg PO DAILY 03/22/18 [Last Taken 03/22/18] Levothyroxine Sodium [Synthroid] 125 mcg PO DAILY 03/22/18 [Last Taken 03/22/18] Multivitamin [Daily Multiple Vitamin] 1 each PO DAILY 03/22/18 [Last Taken 03/22] Acetaminophen [Tylenol 500Mg Tab] 1,000 mg PO Q6H PRN tablet 03/27/18 [Last Taken Unknown] Cephalexin [Keflex] 500 mg PO Q6H #30 capsule 03/27/18 [Last Taken Unknown] Hydrocodone/APAP 5/325Mg [[place] 5Mg/325Mg] 1 each PO Q4H PRN #14 tab 03/27/18 [ Last Taken Unknown] Levothyroxine Sodium [Synthroid] 125 mcg PO DAILYTHY tablet 03/27/18 [Last Taken Unknown] Lidocaine Patch [Lidoderm] 1 each TOP DAILY #30 patch 03/27/18 [Last Taken Unknown] Nitrofurantoin [place] [Macrobid] 100 mg PO BID #20 capsule 03/27/18 [Last Taken Unknown] Ondansetron [Zofran Odt] 4 mg SL Q6H PRN #20 tab.rapdis 03/27/18 [Last Taken Unknown] Discharge Note - Date Date of Discharge Note: 03/27/18 Condition: (2) Stable Additional Instructions: -[facility] will start services in your home post discharge. They can be reached at [phone] -A hospital bed has been ordered through [facility], . They have ramps available for monthly rental 3-12 ft long, $10/foot. They have over the bed tables for $15/month rental. patient is going into hospise care. Referrals: Salvador Coker M.D., F.A.C.P. [Primary Care Provider] - Forms: Patient Portal Access
--- NOTE | 2018-03-27 07:14 | RADIOLOGY REPORT ---
EXAM: PORTABLE CHEST HISTORY: WEAKNESS AND DIFFICULTY BREATHING. TECHNIQUE: A single portable frontal view of the chest was obtained. Comparison: Chest radiograph 09/27/17. FINDINGS: A right sided port catheter is noted. The cardiac silhouette is within normal size limits. The thoracic aorta is calcified and mildly tortuous. The pulmonary vasculature does not appear dilated. The lungs are hyperinflated. No definite new focal pulmonary opacification. No definable pleural fluid collection. No visible pneumothorax. Degenerative changes are noted in both shoulders. IMPRESSION: THE LUNGS ARE HYPERINFLATED SUGGESTIVE OF COPD. NO DEFINITE FOCAL PULMONARY ABNORMALITIES DETECTED. JOB NUMBER: [id number] [facility]
[2018-03-27] MEDS ORDERED: CEPHALEXIN 500 MG CAPSULE PO SCH (08:00)
[2018-03-27] MEDS: POTASSIUM CHLORIDE 20 MEQ TABLET PO SCH (09:07)
[2018-03-27] MEDS: LIDOCAINE 5% PATCH TOP SCH (09:14)
[2018-03-27] MEDS ORDERED: NITROFURANTOIN MONO 100 MG CAPSULE PO SCH (10:00)
--- NOTE | 2018-03-28 10:33 | Discharge Summary ---
DATE: 03/27/2018 DISCHARGE DIAGNOSES: 1. Metastatic gastric cancer with metastasis to the bone. 2. History of metastatic breast cancer. 3. Urinary tract infection. 4. Hypokalemia, resolving. Potassium is 3.5. 5. Chronic renal failure. Creatinine 2.0. BUN is 27. 6. Anemia. Hemoglobin is 9.1 and stable. 7. Weakness and has lost 23 pounds over the last year. 8. The patient is going into hospice care for the last phase of her life. 9. Do not resuscitate. 10. Chronic diarrhea. 11. Hypoalbuminemia. ATTENDING PHYSICIAN: Randy Rosado DO REASON FOR HOSPITALIZATION: This 77-year-old female presented to the emergency department on 03/22/2018 with nausea, vomiting, loose stools for the past 2-3 weeks, worse in the last week. She is actively being treated for gastric cancer with metastasis to the bone through [facility]. She was very weak upon arrival to the emergency department. She was admitted with a diagnosis of colitis, hypokalemia, elevated troponin levels, chronic renal failure. She was initially taken care of by nurse practitioner Ruth Mcclendon. I took over when I came fire protection inspector. The patient seemed to be rallying and getting better but then progressively started to get worse, very weak, unable to eat or drink much and getting weaker by the day. THERAPY PROVIDED: The patient was given IV Cipro and Flagyl, switched to oral Cipro and Flagyl. The sensitivities for the urinary tract came back resistant to those antibiotics, so she was switched over to Keflex and Macrodantin on the day of discharge. Prior to this discharge date, the patient opted to go into hospice care, and that is being set up at this time. She is going into hospice care at 11 a.m. today at her own home. We will continue oral antibiotics with Keflex and Macrodantin and her home medications. HOSPITAL COURSE: She started to improve and then deteriorated to a point where it appeared she was in the dying process. CONDITION ON DISCHARGE: Stable but very guarded because of her metastatic gastric cancer, metastatic breast cancer, and becoming cachectic. DISCHARGE INSTRUCTIONS: The patient is going into hospice care at this time. Follow up with hospice care at her home. Home medications of Keflex 500 mg 4 times a day, Lidoderm patch 1 a day 12 hours on and 12 hours off, Macrobid 100 mg b.i.d., Zofran 4 mg q.6 h. p.r.n., hydrocodone 5 mg q.4 h. p.r.n. Continuing her home medications of Imodium 2 mg q.4 h. p.r.n., Tylenol 500 mg q.6 h. p.r.n., vitamin C 500 mg daily, cranberry pills 400 mg daily, levothyroxine 125 mcg daily, multivitamin 1 a day. CC: Dr. Shun MORROW
== END 2018-03-27 12:01 | disposition home health service (06) | DRG 392 ==
LOC: ER 18:25 → MEDSURG 21:45
PROVIDERS: ADMIT Internal Medicine; ATTEND Internal Medicine
DX: K52.9 Noninfective gastroenteritis and colitis, unspecified (principal); C18.9 Malignant neoplasm of colon, unspecified; C79.51 Secondary malignant neoplasm of bone; N39.0 Urinary tract infection, site not specified; R19.7 Diarrhea, unspecified; R79.89 Other specified abnormal findings of blood chemistry; E87.6 Hypokalemia; N18.3 Chronic kidney disease, stage 3 (moderate); I10 Essential (primary) hypertension; E11.9 Type 2 diabetes mellitus without complications; G62.9 Polyneuropathy, unspecified; Z85.3 Personal history of malignant neoplasm of breast; Z90.49 Acquired absence of other specified parts of digestive tract
CPT/HCPCS: 83690; 80053; 81001; 84484; 85027; 74176; 93005; 93010; J0744; J2405; 71045; 80048; 85610; 96365; 96366; 96374; 96375; 99223; 99233; 99239; 99285; J1650; J2550; J7030